=== PATIENT | female | born 1985 | race American Indian/Alaskan Native ===

== ENCOUNTER 2017-03-27 08:42 | Emergency (ER) | payer MEDICARE | END 2017-03-27 08:43 | disposition left against medical advice (07) | LOC: ED 08:42 | DX: L98.8 Other specified disorders of the skin and subcutaneous tissue (principal); Z53.21 Procedure and treatment not carried out due to patient leaving prior to being seen by health care provider ==

== ENCOUNTER 2017-03-27 08:43 | Inpatient (IN) | payer MEDICARE ==
[2017-03-27] MEDS ORDERED: NACL 0.9% 500 ML 500 ML IV ONE (09:19)
[2017-03-27 10:02] LABS: Hematocrit 28.2 % (30.3-42.9); Hemoglobin 9.1 gm/dl (10.1-14.3); Mean Corpuscular HGB Conc 32 % (30-34); Mean Corpuscular Hemoglobin 27 pg (28-32); Mean Corpuscular Volume 82 fl (79-97); Platelet Count 134 K/mm3 (140-440); Red Blood Count 3.44 M/mm3 (3.65-5.03); Red Cell Distribution Width 15.4 % (13.2-15.2)
[2017-03-27 10:05] LABS: White Blood Count 1.5 K/mm3 (4.5-11.0)
[2017-03-27 10:09] LABS: Alanine Aminotransferase 13 units/L (7-56); Albumin 3.5 g/dL (3.9-5); Albumin/Globulin Ratio 0.7 %; Alkaline Phosphatase 72 units/L (35-129); Anion Gap 18 mmol/L; BUN/Creatinine Ratio 30; Blood Urea Nitrogen 15 mg/dL (7-17); Calcium 8.3 mg/dL (8.4-10.2); Carbon Dioxide 23 mmol/L (22-30); Chloride 99.9 mmol/L (98-107); Glucose 112 mg/dL (65-100); Potassium 3.6 mmol/L (3.6-5.0); Sodium 137 mmol/L (137-145); Total Protein 8.2 g/dL (6.3-8.2)
[2017-03-27 10:10] LABS: INR 0.96 (0.87-1.13)
--- NOTE | 2017-03-27 10:14 | XRay Report ---
AP CHEST: HISTORY: Sepsis AP view of the chest demonstrates a normal mediastinal and cardiac contour with clear lungs and normal bony and soft tissue structures. IMPRESSION: Unremarkable AP chest.
[2017-03-27] MEDS ORDERED: MERREM 1,000 MG in NACL 0.9% 100 ML IV ONE (10:16)
[2017-03-27] MEDS ORDERED: NACL 0.9% 1000 ML IV ONE (10:19)
[2017-03-27] MEDS ORDERED: DILAUDID IV ONE (10:37)
[2017-03-27] MEDS ORDERED: ZOFRAN IV ONE (10:37)
[2017-03-27] MEDS ORDERED: XYLOCAINE 1% 20 mL INFILTRATI ONE (10:52)
[2017-03-27] MEDS ORDERED: VANCOMYCIN PHARMACY TO DOSE IV SCH (11:00)
[2017-03-27] MEDS ORDERED: MERREM 1,000 MG in NACL 0.9% 20 ML IV ONE (11:00)
[2017-03-27 11:06] LABS: Basophils % (Manual) 0 % (0.0-1.8); Blastocytes % (Manual) 0 %
[2017-03-27 11:07] LABS: Anisocytosis 1+; Diff Status Complete; Hypochromasia 1+; Platelet Estimate Consistent w Auto; Schistocytes Rare
[2017-03-27] MEDS: VANCOMYCIN/NS 1 GM/250 ML 1 GM/250 ML BAG IV SCH ×2 (11:13→22:52)
[2017-03-27 12:42] LABS: Bilirubin,Urine NEG (Negative); Blood,Urine MOD (Negative); Ketones,Urine NEG (Negative); Leukocyte Esterase,Urine NEG (Negative); Mucus,Urine FEW /HPF; Nitrite,Urine NEG (Negative); Protein,Urine <15 mg/dL mg/dL (Negative); Urobilinogen,Urine < 2.0 mg/dL (<2.0)
--- NOTE | 2017-03-27 12:46 | History and Physical Report ---
History of Present Illness Chief complaint: My butt hurts History of present illness: 31 YO Female with HIV presents to ED for evaluation. Pt states that she has experienced sores on her buttocks over the past week with worsening pain and foul smelling drainage over that past 3 days. Pt also acknowledges severe generalized weakness. Pain in buttocks is 8/10, constant, worse with movement or sitting. No reports of trauma, fever, chills, CP, Palpitations, NVD, syncope , recent in contacts, BRBPR. Pt seen and evaluated in ED and found to have evidence of sepsis. Pt blood pressure was 79/45. Pt initiated on Sepsis protocol , and treated with antibiotics, and IVF resuscitation therapy. Past History Past Medical History: HIV/AIDS Past Surgical History: No surgical history, Other (reviewed) Social history: single. denies: smoking, alcohol abuse Family history: hypertension Medications and Allergies Allergies Allergy/AdvReac Type Severity Reaction Status Date / Time amoxicillin Allergy Rash Verified 03/27/17 09:02 Active Meds: Active Medications Vancomycin HCl (Vancomycin/Ns 1 Gm/250 Ml) 1 gm in 250 mls @ 166.667 mls/hr IV Q8H [facility] Last Admin: 03/27/17 11:13 Dose: 166.667 mls/hr Vancomycin HCl (Vancomycin Pharmacy To Dose) 1 each IV PKCONSULT [facility] PRN Reason: Protocol Review of Systems Constitutional: no weight loss, no weight gain, no fever, no chills Ears, nose, mouth and throat: no ear pain, no ear discharge, no tinnitis, no decreased hearing, no nose pain Breasts: no change in shape, no swelling, no mass Cardiovascular: no chest pain, no orthopnea, no palpitations, no rapid/ irregular heart beat Respiratory: no cough, no cough with sputum, no excessive sputum, no hemoptysis Gastrointestinal: no nausea, no vomiting, no diarrhea, no constipation Genitourinary Female: no pelvic pain, no flank pain, no menorrhagia, no dysuria , no urinary frequency Rectal: no pain, no incontinence, no bleeding Musculoskeletal: no neck stiffness, no neck pain, no shooting arm pain, no arm numbness/tingling, no low back pain Integumentary: other (buttock ulcers bilaterally), no rash, no pruritis, no redness, no sores Neurological: no transient paralysis, no paralysis, no weakness, no parathesias , no numbness Psychiatric: no anxiety, no memory loss, no change in sleep habits, no sleep disturbances, no insomnia, no hypersomnia Endocrine: no cold intolerance, no heat intolerance, no polyphagia, no excessive thirst, no polydipsia, no polyuria Hematologic/Lymphatic: no easy bruising, no easy bleeding Allergic/Immunologic: no urticaria, no allergic rhinitis, no wheezing Exam - Constitutional Vitals: Temp Pulse Resp BP Pulse Ox 97.8 F 90 19 115/80 98 03/27/17 09:02 03/27/17 12:30 03/27/17 12:30 03/27/17 12:30 03/27/17 12:30 General appearance: Present: mild distress - EENT Eyes: Present: PERRL ENT: hearing intact, clear oral mucosa - Neck Neck: Present: supple, normal ROM - Respiratory Respiratory effort: normal Respiratory: bilateral: CTA - Cardiovascular Heart Sounds: Present: S1 & S2. Absent: rub, click - Extremities Extremities: pulses symmetrical, No edema Peripheral Pulses: within normal limits - Abdominal General gastrointestinal: Present: soft, non-tender, non-distended, normal bowel sounds Female genitourinary: Present: normal - Integumentary Integumentary: Present: clear, warm, dry - Musculoskeletal Musculoskeletal: gait normal, strength equal bilaterally - Psychiatric Psychiatric: appropriate mood/affect, intact judgment & insight - Neurologic Neurologic: CNII-XII intact, moves all extremities Results - Labs CBC & Chem 7: 03/27/17 09:32 03/27/17 09:32 Labs: Abnormal lab results 03/27/17 03/27/17 Range/Units 09:32 09:32 WBC 1.5 L* (4.5-11.0) K/mm3 RBC 3.44 L (3.65-5.03) M/mm3 Hgb 9.1 L (10.1-14.3) gm/dl Hct 28.2 L (30.3-42.9) % MCH 27 L (28-32) pg RDW 15.4 H (13.2-15.2) % Plt Count 134 L (140-440) K/mm3 Monocytes % (Manual) 8.0 H (0.0-7.3) % Seg Neutrophils # Man 0.8 L (1.8-7.7) K/mm3 Lymphocytes # (Manual) 0.4 L (1.2-5.4) K/mm3 Creatinine 0.5 L (0.7-1.2) mg/dL Glucose 112 H (65-100) mg/dL Calcium 8.3 L (8.4-10.2) mg/dL Albumin 3.5 L (3.9-5) g/dL Assessment and Plan - Patient Problems (1) Sepsis Current Visit: Yes Status: Acute Plan to address problem: IV abx, IVF resuscitation, serial lactic acid level, blood cultures, wound cultures, urinalysis, (2) Cellulitis of buttock Current Visit: Yes Status: Acute Plan to address problem: IV abx, wound care consulted, supportive care. (3) HIV (human immunodeficiency virus infection) Current Visit: Yes Status: Acute Plan to address problem: Outpatient ID F/u, continue current care. (4) DVT prophylaxis Current Visit: Yes Status: Acute
[2017-03-27] MEDS ORDERED: PROVENTIL IH PRN (12:47)
[2017-03-27] MEDS ORDERED: DULCOLAX PR PRN (12:47)
[2017-03-27] MEDS ORDERED: MILK OF MAGNESIA PO PRN (12:47)
[2017-03-27] MEDS ORDERED: TYLENOL PO PRN (12:47)
--- NOTE | 2017-03-27 13:33 | Emergency Department Report ---
ED General Adult HPI - General Chief complaint: Skin/Abscess/Foreign Body Stated complaint: SORES ON BOTTOM Time Seen by Provider: 03/27/17 10:20 Source: patient Mode of arrival: Ambulatory Limitations: No Limitations - History of Present Illness Initial comments: Patient presents to the emergency department with an apparent abundance of denial. She is hoping to get some medicine and go home and she tells me she complains of sores on her bottom which she states are due to her sitting too long. I am really certain that this patient is HIV positive although she will not admitted. She states that she was [place] with a [place]. She states that she was told to follow up with an infectious disease clinic after an HIV test. She states that the results of her HIV test was "not back yet". In any case the patient presented to the emergency department hypotensive with chronic gluteal sores. She is able to have a bowel movement. She is hardly permitting examination of her buttox. She would not permit a digital exam. He does admit to severe generalized weakness. She was found to have a blood pressure which drifted down to 70 on arrival. -: week(s) Location: buttocks Radiation: non-radiation Severity scale (0 -10): 3 Quality: aching Consistency: constant Improves with: none Worsens with: none Associated Symptoms: other Treatments Prior to Arrival: none - Related Data Allergies Allergy/AdvReac Type Severity Reaction Status Date / Time amoxicillin Allergy Rash Verified 03/27/17 09:02 ED Review of Systems ROS: Stated complaint: SORES ON BOTTOM Other details as noted in HPI ED Past Medical Hx - Past Medical History Previous Medical History?: No - Surgical History Past Surgical History?: No - Social History Smoking Status: Never Smoker Substance Use Type: Alcohol ED Physical Exam - General Limitations: No Limitations General appearance: alert, in no apparent distress - Head Head exam: Present: atraumatic, normocephalic - Eye Eye exam: Present: normal appearance. Absent: scleral icterus - ENT ENT exam: Present: mucous membranes moist - Neck Neck exam: Present: normal inspection. Absent: tenderness, meningismus - Respiratory Respiratory exam: Present: normal lung sounds bilaterally. Absent: respiratory distress - Cardiovascular Cardiovascular Exam: Present: regular rate, normal rhythm. Absent: systolic murmur, diastolic murmur, rubs, gallop - GI/Abdominal GI/Abdominal exam: Present: soft, normal bowel sounds. Absent: distended, tenderness, guarding, rebound - Rectal Rectal exam: Present: other (would not allow) - Extremities Exam Extremities exam: Present: normal inspection - Back Exam Back exam: Present: normal inspection - Neurological Exam Neurological exam: Present: CN II-XII intact. Absent: motor sensory deficit - Psychiatric Psychiatric exam: Present: agitated, anxious - Skin Skin exam: Present: warm, dry, other (patient has multiple 1-2 cm diameter punched-out full-thickness ulcers. There is some maceration. There is no herrera pus or erythema. There is no abscess formation noted. They are bilateral in the gluteal area). Absent: rash ED Course Vital Signs 03/27/17 03/27/17 03/27/17 09:02 09:28 09:30 Temperature 97.8 F Pulse Rate 94 H 88 Respiratory 18 14 Rate Blood Pressure 79/45 102/61 95/63 O2 Sat by Pulse 100 Oximetry 03/27/17 03/27/17 03/27/17 09:46 10:00 10:16 Temperature Pulse Rate 97 H 89 93 H Respiratory 14 20 18 Rate Blood Pressure 95/63 115/79 115/79 O2 Sat by Pulse 97 95 100 Oximetry 03/27/17 03/27/17 03/27/17 10:30 10:46 10:49 Temperature Pulse Rate 101 H 108 H Respiratory 15 11 L 18 Rate Blood Pressure 114/87 114/87 O2 Sat by Pulse 100 100 Oximetry 03/27/17 03/27/17 03/27/17 11:00 11:16 11:30 Temperature Pulse Rate 98 H 95 H 116 H Respiratory 15 18 19 Rate Blood Pressure 114/87 114/87 114/87 O2 Sat by Pulse 98 99 87 Oximetry 03/27/17 03/27/17 03/27/17 11:46 12:00 12:16 Temperature Pulse Rate 109 H 94 H 89 Respiratory 20 15 14 Rate Blood Pressure 129/84 129/84 135/94 O2 Sat by Pulse 97 99 97 Oximetry 03/27/17 12:30 Temperature Pulse Rate 90 Respiratory 19 Rate Blood Pressure 115/80 O2 Sat by Pulse 98 Oximetry - Reevaluation(s) Reevaluation #1: Patient was treated empirically for sepsis with meropenem and vancomycin. She was admitted by Dr. Quintin for further care and evaluation. 03/27/17 13:58 ED Medical Decision Making - Lab Data Result diagrams: 03/27/17 09:32 03/27/17 09:32 Laboratory Results - last 24 hr 03/27/17 03/27/17 03/27/17 09:32 09:32 09:32 WBC 1.5 L* RBC 3.44 L Hgb 9.1 L Hct 28.2 L MCV 82 MCH 27 L MCHC 32 RDW 15.4 H Plt Count 134 L Add Manual Diff Complete Total Counted 100 Seg Neuts % (Manual) 50.0 Band Neutrophils % 12.0 Lymphocytes % (Manual) 29.0 Reactive Lymphs % (Man) 0 Monocytes % (Manual) 8.0 H Eosinophils % (Manual) 1.0 Basophils % (Manual) 0 Metamyelocytes % 0 Myelocytes % 0 Promyelocytes % 0 Blast Cells % 0 Nucleated RBC % Not Reportable Seg Neutrophils # Man 0.8 L Band Neutrophils # 0.2 Lymphocytes # (Manual) 0.4 L Abs React Lymphs (Man) 0.0 Monocytes # (Manual) 0.1 Eosinophils # (Manual) 0.0 Basophils # (Manual) 0.0 Metamyelocytes # 0.0 Myelocytes # 0.0 Promyelocytes # 0.0 Blast Cells # 0.0 WBC Morphology Not Reportable Hypersegmented Neuts Not Reportable Hyposegmented Neuts Not Reportable Hypogranular Neuts Not Reportable Smudge Cells Not Reportable Toxic Granulation Not Reportable Toxic Vacuolation Not Reportable Dohle Bodies Not Reportable Pelger-Huet Anomaly Not Reportable La Rods Not Reportable Platelet Estimate Consistent w auto Clumped Platelets Not Reportable Plt Clumps, EDTA Not Reportable Large Platelets Not Reportable Giant Platelets Not Reportable Platelet Satelliting Not Reportable Plt Morphology Comment Not Reportable RBC Morphology Not Reportable Dimorphic RBCs Not Reportable Polychromasia Not Reportable Hypochromasia 1+ Poikilocytosis Not Reportable Anisocytosis 1+ Microcytosis Not Reportable Macrocytosis Not Reportable Spherocytes Not Reportable Pappenheimer Bodies Not Reportable Sickle Cells Not Reportable Target Cells Not Reportable Tear Drop Cells Not Reportable Ovalocytes Not Reportable Helmet Cells Not Reportable Rae-Oronoque Bodies Not Reportable [place] Rings Not Reportable [place] Cells Not Reportable Bite Cells Not Reportable Crenated Cell Not Reportable Elliptocytes Not Reportable Acanthocytes (Spur) Not Reportable Rouleaux Not Reportable Hemoglobin C Crystals Not Reportable Schistocytes Rare Malaria parasites Not Reportable Gaurav Bodies Not Reportable Hem Pathologist Commnt No PT 13.3 INR 0.96 VBG pH Sodium 137 Potassium 3.6 Chloride 99.9 Carbon Dioxide 23 Anion Gap 18 BUN 15 Creatinine 0.5 L Estimated GFR > 60 BUN/Creatinine Ratio 30 Glucose 112 H Lactic Acid Calcium 8.3 L Total Bilirubin 0.20 AST 27 ALT 13 Alkaline Phosphatase 72 Total Protein 8.2 Albumin 3.5 L Albumin/Globulin Ratio 0.7 Urine Color Urine Turbidity Urine pH Ur Specific [place] Urine Protein Urine Glucose (UA) Urine Ketones Urine Blood Urine Nitrite Urine Bilirubin Urine Urobilinogen Ur Leukocyte Esterase Urine WBC (Auto) Urine RBC (Auto) U Epithel Cells (Auto) Urine Mucus 03/27/17 03/27/17 03/27/17 09:32 09:32 12:30 WBC RBC Hgb Hct MCV MCH MCHC RDW Plt Count Add Manual Diff Total Counted Seg Neuts % (Manual) Band Neutrophils % Lymphocytes % (Manual) Reactive Lymphs % (Man) Monocytes % (Manual) Eosinophils % (Manual) Basophils % (Manual) Metamyelocytes % Myelocytes % Promyelocytes % Blast Cells % Nucleated RBC % Seg Neutrophils # Man Band Neutrophils # Lymphocytes # (Manual) Abs React Lymphs (Man) Monocytes # (Manual) Eosinophils # (Manual) Basophils # (Manual) Metamyelocytes # Myelocytes # Promyelocytes # Blast Cells # WBC Morphology Hypersegmented Neuts Hyposegmented Neuts Hypogranular Neuts Smudge Cells Toxic Granulation Toxic Vacuolation Dohle Bodies Pelger-Huet Anomaly [place] Rod[place] Platelet Estimate Clumped Platelets Plt Clumps, EDTA Large Platelets Giant Platelets Platelet Satelliting Plt Morphology Comment RBC Morphology Dimorphic RBCs Polychromasia Hypochromasia Poikilocytosis Anisocytosis Microcytosis Macrocytosis Spherocytes Pappenheimer Bodies Sickle Cells Target Cells Tear Drop Cells Ovalocytes Helmet Cells Rae-Oronoque Bodies [place] Rings Vannessa Cells Bite Cells Crenated Cell Elliptocytes Acanthocytes (Spur) Rouleaux Hemoglobin C Crystals Schistocytes Malaria parasites Gaurav Bodies Hem Pathologist Commnt PT INR VBG pH 7.338 Sodium Potassium Chloride Carbon Dioxide Anion Gap BUN Creatinine Estimated GFR BUN/Creatinine Ratio Glucose Lactic Acid 1.20 Calcium Total Bilirubin AST ALT Alkaline Phosphatase Total Protein Albumin Albumin/Globulin Ratio Urine Color Yellow Urine Turbidity Clear Urine pH 6.0 Ur Specific [place] 1.013 Urine Protein <15 mg/dl Urine Glucose (UA) Neg Urine Ketones Neg Urine Blood Mod Urine Nitrite Neg Urine Bilirubin Neg Urine Urobilinogen < 2.0 Ur Leukocyte Esterase Neg Urine WBC (Auto) 1.0 Urine RBC (Auto) 2.0 U Epithel Cells (Auto) 1.0 Urine Mucus Few - EKG Data -: EKG Interpreted by Me EKG shows normal: sinus rhythm, axis, intervals, QRS complexes, ST-T waves - EKG Data Interpretation: no acute changes - Radiology Data interpreted by me: Chest x-ray no acute process Critical care attestation.: If time is entered above; I have spent that time in minutes in the direct care of this critically ill patient, excluding procedure time. ED Disposition Clinical Impression: Gluteal pain, Pancytopenia Neutropenia Qualifiers: Neutropenia type: unspecified Qualified Code(s): D70.9 - Neutropenia, unspecified Skin ulcer Qualifiers: Non-pressure ulcer stage: unspecified non-pressure ulcer stage Qualified Code(s ): L98.499 - Non-pressure chronic ulcer of skin of other sites with unspecified severity Sepsis Qualifiers: Sepsis type: sepsis due to unspecified organism Qualified Code(s): A41.9 - Sepsis, unspecified organism Hypotension Qualifiers: Hypotension type: unspecified hypotension type Qualified Code(s): I95.9 - Hypotension, unspecified Disposition: DC-09 OP ADMIT IP TO THIS HOSP Is pt being admited?: Yes Does the pt Need Aspirin: No (held platelets slightly low no indication obvious) Condition: Stable Referrals: PRIMARY CARE, [Primary Care Provider] - 3-5 Days Time of Disposition: 14:01
[2017-03-27] MEDS ORDERED: VANCOMYCIN VIAL IV ONE (14:55)
[2017-03-27] MEDS ORDERED: VANCOMYCIN 1,250 MG in NACL 0.9% 250ML 250 ML IV ONE (16:00)
[2017-03-27] MEDS: FLAGYL 500 MG/100 ML 500 MG/100 ML BAG IV SCH (17:32)
[2017-03-27] MEDS: PERCOCET 5/325 PO PRN (19:53)
[2017-03-28] MEDS: FLAGYL 500 MG/100 ML 500 MG/100 ML BAG IV SCH ×2 (01:30→10:00)
[2017-03-28] MEDS: VANCOMYCIN/NS 1 GM/250 ML 1 GM/250 ML BAG IV SCH ×3 (06:37→21:25)
[2017-03-28] MEDS: PERCOCET 5/325 PO PRN ×3 (06:41→21:27)
[2017-03-28] MEDS ORDERED: MORPHINE IV ONE (12:00)
--- NOTE | 2017-03-28 12:29 | Consultation ---
History of Present Illness - Reason for Consult Consult date: 03/28/17 buttocks rash Requesting physician: SHANTELL PARKER - History of Present Illness 31 years old female with history of HIV infection diagnosed in 2012, recently moved from [place], [place] to [place]. Patient has no established a new HIV office. Patient used to be on tivicay, viread and ? . Last time she took her ART was 2 months ago. She lost her medical insurance. She was admitted on Patient reports a painful rash on her buttocks area bilaterally in the last 7 days. She recently had her period and she received the pat irritated her. She denies any recent fever, chills, trauma, nausea, vomiting. In the emergency room, initial temperature was 97.8, heart rate 94, respirations 18, blood pressure 74/45. Initial white count 1.5, hemoglobin 9.1 , platelets 134. Creatinine 0.5. Urinalysis is negative. Microbiology: Blood cultures: 03/27 ngtd Urine cultures: 03/27 <10K Current Antimicrobials: Metronidazole 03/27 Vancomycin 03/27 Previous Antimicrobials: Past History Past Medical History: HIV/AIDS Past Surgical History: No surgical history, Other (reviewed) Social history: single. denies: smoking, alcohol abuse Family history: hypertension Medications and Allergies Allergies Allergy/AdvReac Type Severity Reaction Status Date / Time amoxicillin Allergy Rash Verified 03/27/17 09:02 Active Meds: Active Medications Acetaminophen (Tylenol) 650 mg PO Q4H PRN PRN Reason: Pain MILD(1-3)/Fever >100.5/SNYDER Albuterol (Proventil) 2.5 mg IH Q4HRT PRN PRN Reason: Shortness Of Breath Bisacodyl (Dulcolax) 10 mg UT QDAY PRN PRN Reason: Constipation unrelieved by MOM Vancomycin HCl (Vancomycin/Ns 1 Gm/250 Ml) 1 gm in 250 mls @ 166.667 mls/hr IV Q8H [facility] Last Admin: 03/28/17 06:37 Dose: 166.667 mls/hr Metronidazole (Flagyl 500 Mg/100 Ml) 500 mg in 100 mls @ 100 mls/hr IV Q8H [facility] PRN Reason: Protocol Last Admin: 03/28/17 10:00 Dose: 100 mls/hr Magnesium Hydroxide (Milk Of Magnesia) 30 ml PO Q4H PRN PRN Reason: Constipation Ondansetron HCl (Zofran) 4 mg IV Q8H PRN PRN Reason: N/V unrelieved by Reglan Oxycodone/Acetaminophen (Percocet 5/325) 1 tab PO Q6H PRN PRN Reason: Pain, Moderate (4-6) Last Admin: 03/28/17 06:41 Dose: 1 tab Vancomycin HCl (Vancomycin Pharmacy To Dose) 1 each IV PKCONSULT [facility] PRN Reason: Protocol Review of Systems All systems: negative (as per HPI rest neg) Physical Examination - Physical Exam Narrative exam: General appearance: Alert in NAD, conversant Eyes: anicteric sclerae, moist conjunctivae; no lid-lag; PERRLA HENT: Atraumatic; oropharynx clear Neck: Trachea midline; supple, no thyromegaly or lymphadenopathy Lungs: CTA, with normal respiratory effort and no intercostal retractions CV: RRR, no murmurs Abdomen: Soft, non-tender; no masses or hepatosplenomegaly Extremities: No peripheral edema or extremity lymphadenopathy Skin: multiple round superficial ulcers in sacrum, nelson buttocks with periwound erythema no purulence Psych: Appropriate affect, alert and oriented to person, place and time. Neuro: alert and oriented x 3. Moving all extermities Lines: No CVL / PICC - Constitutional Vitals: Vital Signs Temp Pulse Resp BP Pulse Ox 98.5 F 98 H 20 130/78 99 03/28/17 09:10 03/28/17 09:10 03/28/17 09:10 03/28/17 09:10 03/28/17 09:16 Temperature -Last 24 Hours Temperature 98.5 F Temperature 98.4 F Temperature 98.6 F Temperature 97.9 F Results - Labs CBC & Chem 7: 03/27/17 09:32 03/27/17 09:32 Assessment and Plan Assessment: 1) HIV infection diagnosed in 2012. Last time she took her ART was 2 months ago. She lost her medical insurance. 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 Natalia Juarez MD Infectious Diseases Specialist [facility] ([facility] M [phone] O [phone]
--- NOTE | 2017-03-28 15:53 | Progress Note ---
<CASSIE GALAN - Last Filed: 03/28/17 15:48> Assessment and Plan Assessment and plan: 31 YO Female with HIV presents to ED for evaluation. Pt states that she has experienced sores on her buttocks over the past week with worsening pain and foul smelling drainage over that past 3 days. Pt also acknowledges severe generalized weakness. Pain in buttocks is 8/10, constant, worse with movement or sitting. No reports of trauma, fever, chills, CP, Palpitations, NVD, syncope , recent in contacts, BRBPR. Pt seen and evaluated in ED and found to have evidence of sepsis. Pt blood pressure was 79/45. Pt initiated on Sepsis protocol , and treated with antibiotics, and IVF resuscitation therapy Sepsis Likely from buttocks rash culture shows few polymorphonuclear cells , rare gram negative rods Continue vancomycin HIV/AIDS ID following -check CD4/VL/genotype Buttock rash ID following -start acyclovir IV. Hypotension Resolved, continue IVF WIll continue to monitor Pancytopenia from AIDS History Interval history: Patient is awake and alert. Denies CP, SOB, N/V. Only complains of buttock pain Hospitalist Physical - Constitutional Vitals: Temp Pulse Resp BP Pulse Ox 98.5 F 98 H 20 130/78 99 03/28/17 09:10 03/28/17 09:10 03/28/17 09:10 03/28/17 09:10 03/28/17 09:16 General appearance: Present: mild distress - EENT Eyes: Present: PERRL, EOM intact ENT: hearing intact, clear oral mucosa - Neck Neck: Present: supple, normal ROM - Respiratory Respiratory effort: normal Respiratory: bilateral: CTA - Cardiovascular Rhythm: regular Heart Sounds: Present: S1 & S2 - Extremities Extremities: no ischemia, No edema Peripheral Pulses: within normal limits - Abdominal General gastrointestinal: soft, non-tender - Integumentary Integumentary: Present: clear (denies exam of buttocks), warm, dry - Psychiatric Psychiatric: appropriate mood/affect, cooperative - Neurologic Neurologic: CNII-XII intact, moves all extremities - Allied Health Allied health notes reviewed: nursing Results - Labs CBC & Chem 7: 03/27/17 09:32 03/27/17 09:32 Labs: Laboratory Last Values WBC 1.5 K/mm3 (4.5-11.0) L* 03/27/17 09:32 RBC 3.44 M/mm3 (3.65-5.03) L 03/27/17 09:32 Hgb 9.1 gm/dl (10.1-14.3) L 03/27/17 09:32 Hct 28.2 % (30.3-42.9) L 03/27/17 09:32 MCV 82 fl (79-97) 03/27/17 09:32 MCH 27 pg (28-32) L 03/27/17 09:32 MCHC 32 % (30-34) 03/27/17 09:32 RDW 15.4 % (13.2-15.2) H 03/27/17 09:32 Plt Count 134 K/mm3 (140-440) L 03/27/17 09:32 Add Manual Diff Complete 03/27/17 09:32 Total Counted 100 03/27/17 09:32 Seg Neuts % (Manual) 50.0 % (40.0-70.0) 03/27/17 09:32 Band Neutrophils % 12.0 % 03/27/17 09:32 Lymphocytes % (Manual) 29.0 % (13.4-35.0) 03/27/17 09:32 Reactive Lymphs % (Man) 0 % 03/27/17 09:32 Monocytes % (Manual) 8.0 % (0.0-7.3) H 03/27/17 09:32 Eosinophils % (Manual) 1.0 % (0.0-4.3) 03/27/17 09:32 Basophils % (Manual) 0 % (0.0-1.8) 03/27/17 09:32 Metamyelocytes % 0 % 03/27/17 09:32 Myelocytes % 0 % 03/27/17 09:32 Promyelocytes % 0 % 03/27/17 09:32 Blast Cells % 0 % 03/27/17 09:32 Nucleated RBC % Not Reportable 03/27/17 09:32 Seg Neutrophils # Man 0.8 K/mm3 (1.8-7.7) L 03/27/17 09:32 Band Neutrophils # 0.2 K/mm3 03/27/17 09:32 Lymphocytes # (Manual) 0.4 K/mm3 (1.2-5.4) L 03/27/17 09:32 Abs React Lymphs (Man) 0.0 K/mm3 03/27/17 09:32 Monocytes # (Manual) 0.1 K/mm3 (0.0-0.8) 03/27/17 09:32 Eosinophils # (Manual) 0.0 K/mm3 (0.0-0.4) 03/27/17 09:32 Basophils # (Manual) 0.0 K/mm3 (0.0-0.1) 03/27/17 09:32 Metamyelocytes # 0.0 K/mm3 03/27/17 09:32 Myelocytes # 0.0 K/mm3 03/27/17 09:32 Promyelocytes # 0.0 K/mm3 03/27/17 09:32 Blast Cells # 0.0 K/mm3 03/27/17 09:32 WBC Morphology Not Reportable 03/27/17 09:32 Hypersegmented Neuts Not Reportable 03/27/17 09:32 Hyposegmented Neuts Not Reportable 03/27/17 09:32 Hypogranular Neuts Not Reportable 03/27/17 09:32 Smudge Cells Not Reportable 03/27/17 09:32 Toxic Granulation Not Reportable 03/27/17 09:32 Toxic Vacuolation Not Reportable 03/27/17 09:32 Dohle Bodies Not Reportable 03/27/17 09:32 Pelger-Huet Anomaly Not Reportable 03/27/17 09:32 La Rods Not Reportable 03/27/17 09:32 Platelet Estimate Consistent w auto 03/27/17 09:32 Clumped Platelets Not Reportable 03/27/17 09:32 Plt Clumps, EDTA Not Reportable 03/27/17 09:32 Large Platelets Not Reportable 03/27/17 09:32 Giant Platelets Not Reportable 03/27/17 09:32 Platelet Satelliting Not Reportable 03/27/17 09:32 Plt Morphology Comment Not Reportable 03/27/17 09:32 RBC Morphology Not Reportable 03/27/17 09:32 Dimorphic RBCs Not Reportable 03/27/17 09:32 Polychromasia Not Reportable 03/27/17 09:32 Hypochromasia 1+ 03/27/17 09:32 Poikilocytosis Not Reportable 03/27/17 09:32 Anisocytosis 1+ 03/27/17 09:32 Microcytosis Not Reportable 03/27/17 09:32 Macrocytosis Not Reportable 03/27/17 09:32 Spherocytes Not Reportable 03/27/17 09:32 Pappenheimer Bodies Not Reportable 03/27/17 09:32 Sickle Cells Not Reportable 03/27/17 09:32 Target Cells Not Reportable 03/27/17 09:32 Tear Drop Cells Not Reportable 03/27/17 09:32 Ovalocytes Not Reportable 03/27/17 09:32 Helmet Cells Not Reportable 03/27/17 09:32 Rae-Goss Bodies Not Reportable 03/27/17 09:32 [place] Rings Not Reportable 03/27/17 09:32 Vannessa Cells Not Reportable 03/27/17 09:32 Bite Cells Not Reportable 03/27/17 09:32 Crenated Cell Not Reportable 03/27/17 09:32 Elliptocytes Not Reportable 03/27/17 09:32 Acanthocytes (Spur) Not Reportable 03/27/17 09:32 Rouleaux Not Reportable 03/27/17 09:32 Hemoglobin C Crystals Not Reportable 03/27/17 09:32 Schistocytes Rare 03/27/17 09:32 Malaria parasites Not Reportable 03/27/17 09:32 Gaurav Bodies Not Reportable 03/27/17 09:32 Hem Pathologist Commnt No 03/27/17 09:32 PT 13.3 Sec. (12.2-14.9) 03/27/17 09:32 INR 0.96 (0.87-1.13) 03/27/17 09:32 VBG pH 7.338 (7.320-7.420) 03/27/17 09:32 Sodium 137 mmol/L (137-145) 03/27/17 09:32 Potassium 3.6 mmol/L (3.6-5.0) 03/27/17 09:32 Chloride 99.9 mmol/L (98-107) 03/27/17 09:32 Carbon Dioxide 23 mmol/L (22-30) 03/27/17 09:32 Anion Gap 18 mmol/L 03/27/17 09:32 BUN 15 mg/dL (7-17) 03/27/17 09:32 Creatinine 0.5 mg/dL (0.7-1.2) L 03/27/17 09:32 Estimated GFR > 60 ml/min 03/27/17 09:32 BUN/Creatinine Ratio 30 % 03/27/17 09:32 Glucose 112 mg/dL (65-100) H 03/27/17 09:32 Lactic Acid 1.50 mmol/L (0.7-2.0) 03/27/17 20:49 Calcium 8.3 mg/dL (8.4-10.2) L 03/27/17 09:32 Total Bilirubin 0.20 mg/dL (0.1-1.2) 03/27/17 09:32 AST 27 units/L (5-40) 03/27/17 09:32 ALT 13 units/L (7-56) 03/27/17 09:32 Alkaline Phosphatase 72 units/L (35-129) 03/27/17 09:32 Total Protein 8.2 g/dL (6.3-8.2) 03/27/17 09:32 Albumin 3.5 g/dL (3.9-5) L 03/27/17 09:32 Albumin/Globulin Ratio 0.7 % 03/27/17 09:32 Urine Color Yellow (Yellow) 03/27/17 12:30 Urine Turbidity Clear (Clear) 03/27/17 12:30 Urine pH 6.0 (5.0-7.0) 03/27/17 12:30 Ur Specific [place] 1.013 (1.003-1.030) 03/27/17 12:30 Urine Protein <15 mg/dl mg/dL (Negative) 03/27/17 12:30 Urine Glucose (UA) Neg mg/dL (Negative) 03/27/17 12:30 Urine Ketones Neg mg/dL (Negative) 03/27/17 12:30 Urine Blood Mod (Negative) 03/27/17 12:30 Urine Nitrite Neg (Negative) 03/27/17 12:30 Urine Bilirubin Neg (Negative) 03/27/17 12:30 Urine Urobilinogen < 2.0 mg/dL (<2.0) 03/27/17 12:30 Ur Leukocyte Esterase Neg (Negative) 03/27/17 12:30 Urine WBC (Auto) 1.0 /HPF (0.0-6.0) 03/27/17 12:30 Urine RBC (Auto) 2.0 /HPF (0.0-6.0) 03/27/17 12:30 U Epithel Cells (Auto) 1.0 /HPF (0-13.0) 03/27/17 12:30 Urine Mucus Few /HPF 03/27/17 12:30 Blood Type B POSITIVE 03/27/17 17:05 Antibody Screen Negative 03/27/17 17:05 <VENANCIOSHANTELL Tom - Last Filed: 03/28/17 16:15> Assessment and Plan Assessment and plan: I saw and evaluated the patient. I agree with the findings and the plan of care as documented in the PA's~note, with the following corrections and additions. d/w ID, we thinks this is herpetic lesions Hospitalist Physical - Constitutional Vitals: Temp Pulse Resp BP Pulse Ox 98.5 F 98 H 20 130/78 99 03/28/17 09:10 03/28/17 09:10 03/28/17 09:10 03/28/17 09:10 03/28/17 09:16 Results - Labs CBC & Chem 7: 03/27/17 09:32 03/27/17 09:32 Labs: Laboratory Last Values WBC 1.5 K/mm3 (4.5-11.0) L* 03/27/17 09:32 RBC 3.44 M/mm3 (3.65-5.03) L 03/27/17 09:32 Hgb 9.1 gm/dl (10.1-14.3) L 03/27/17 09:32 Hct 28.2 % (30.3-42.9) L 03/27/17 09:32 MCV 82 fl (79-97) 03/27/17 09:32 MCH 27 pg (28-32) L 03/27/17 09:32 MCHC 32 % (30-34) 03/27/17 09:32 RDW 15.4 % (13.2-15.2) H 03/27/17 09:32 Plt Count 134 K/mm3 (140-440) L 03/27/17 09:32 Add Manual Diff Complete 03/27/17 09:32 Total Counted 100 03/27/17 09:32 Seg Neuts % (Manual) 50.0 % (40.0-70.0) 03/27/17 09:32 Band Neutrophils % 12.0 % 03/27/17 09:32 Lymphocytes % (Manual) 29.0 % (13.4-35.0) 03/27/17 09:32 Reactive Lymphs % (Man) 0 % 03/27/17 09:32 Monocytes % (Manual) 8.0 % (0.0-7.3) H 03/27/17 09:32 Eosinophils % (Manual) 1.0 % (0.0-4.3) 03/27/17 09:32 Basophils % (Manual) 0 % (0.0-1.8) 03/27/17 09:32 Metamyelocytes % 0 % 03/27/17 09:32 Myelocytes % 0 % 03/27/17 09:32 Promyelocytes % 0 % 03/27/17 09:32 Blast Cells % 0 % 03/27/17 09:32 Nucleated RBC % Not Reportable 03/27/17 09:32 Seg Neutrophils # Man 0.8 K/mm3 (1.8-7.7) L 03/27/17 09:32 Band Neutrophils # 0.2 K/mm3 03/27/17 09:32 Lymphocytes # (Manual) 0.4 K/mm3 (1.2-5.4) L 03/27/17 09:32 Abs React Lymphs (Man) 0.0 K/mm3 03/27/17 09:32 Monocytes # (Manual) 0.1 K/mm3 (0.0-0.8) 03/27/17 09:32 Eosinophils # (Manual) 0.0 K/mm3 (0.0-0.4) 03/27/17 09:32 Basophils # (Manual) 0.0 K/mm3 (0.0-0.1) 03/27/17 09:32 Metamyelocytes # 0.0 K/mm3 03/27/17 09:32 Myelocytes # 0.0 K/mm3 03/27/17 09:32 Promyelocytes # 0.0 K/mm3 03/27/17 09:32 Blast Cells # 0.0 K/mm3 03/27/17 09:32 WBC Morphology Not Reportable 03/27/17 09:32 Hypersegmented Neuts Not Reportable 03/27/17 09:32 Hyposegmented Neuts Not Reportable 03/27/17 09:32 Hypogranular Neuts Not Reportable 03/27/17 09:32 Smudge Cells Not Reportable 03/27/17 09:32 Toxic Granulation Not Reportable 03/27/17 09:32 Toxic Vacuolation Not Reportable 03/27/17 09:32 Dohle Bodies Not Reportable 03/27/17 09:32 Pelger-Huet Anomaly Not Reportable 03/27/17 09:32 La Rods Not Reportable 03/27/17 09:32 Platelet Estimate Consistent w auto 03/27/17 09:32 Clumped Platelets Not Reportable 03/27/17 09:32 Plt Clumps, EDTA Not Reportable 03/27/17 09:32 Large Platelets Not Reportable 03/27/17 09:32 Giant Platelets Not Reportable 03/27/17 09:32 Platelet Satelliting Not Reportable 03/27/17 09:32 Plt Morphology Comment Not Reportable 03/27/17 09:32 RBC Morphology Not Reportable 03/27/17 09:32 Dimorphic RBCs Not Reportable 03/27/17 09:32 Polychromasia Not Reportable 03/27/17 09:32 Hypochromasia 1+ 03/27/17 09:32 Poikilocytosis Not Reportable 03/27/17 09:32 Anisocytosis 1+ 03/27/17 09:32 Microcytosis Not Reportable 03/27/17 09:32 Macrocytosis Not Reportable 03/27/17 09:32 Spherocytes Not Reportable 03/27/17 09:32 Pappenheimer Bodies Not Reportable 03/27/17 09:32 Sickle Cells Not Reportable 03/27/17 09:32 Target Cells Not Reportable 03/27/17 09:32 Tear Drop Cells Not Reportable 03/27/17 09:32 Ovalocytes Not Reportable 03/27/17 09:32 Helmet Cells Not Reportable 03/27/17 09:32 Rae-Goss Bodies Not Reportable 03/27/17 09:32 [place] Rings Not Reportable 03/27/17 09:32 Vannessa Cells Not Reportable 03/27/17 09:32 Bite Cells Not Reportable 03/27/17 09:32 Crenated Cell Not Reportable 03/27/17 09:32 Elliptocytes Not Reportable 03/27/17 09:32 Acanthocytes (Spur) Not Reportable 03/27/17 09:32 Rouleaux Not Reportable 03/27/17 09:32 Hemoglobin C Crystals Not Reportable 03/27/17 09:32 Schistocytes Rare 03/27/17 09:32 Malaria parasites Not Reportable 03/27/17 09:32 Gaurav Bodies Not Reportable 03/27/17 09:32 Hem Pathologist Commnt No 03/27/17 09:32 PT 13.3 Sec. (12.2-14.9) 03/27/17 09:32 INR 0.96 (0.87-1.13) 03/27/17 09:32 VBG pH 7.338 (7.320-7.420) 03/27/17 09:32 Sodium 137 mmol/L (137-145) 03/27/17 09:32 Potassium 3.6 mmol/L (3.6-5.0) 03/27/17 09:32 Chloride 99.9 mmol/L (98-107) 03/27/17 09:32 Carbon Dioxide 23 mmol/L (22-30) 03/27/17 09:32 Anion Gap 18 mmol/L 03/27/17 09:32 BUN 15 mg/dL (7-17) 03/27/17 09:32 Creatinine 0.5 mg/dL (0.7-1.2) L 03/27/17 09:32 Estimated GFR > 60 ml/min 03/27/17 09:32 BUN/Creatinine Ratio 30 % 03/27/17 09:32 Glucose 112 mg/dL (65-100) H 03/27/17 09:32 Lactic Acid 1.50 mmol/L (0.7-2.0) 03/27/17 20:49 Calcium 8.3 mg/dL (8.4-10.2) L 03/27/17 09:32 Total Bilirubin 0.20 mg/dL (0.1-1.2) 03/27/17 09:32 AST 27 units/L (5-40) 03/27/17 09:32 ALT 13 units/L (7-56) 03/27/17 09:32 Alkaline Phosphatase 72 units/L (35-129) 03/27/17 09:32 Total Protein 8.2 g/dL (6.3-8.2) 03/27/17 09:32 Albumin 3.5 g/dL (3.9-5) L 03/27/17 09:32 Albumin/Globulin Ratio 0.7 % 03/27/17 09:32 Urine Color Yellow (Yellow) 03/27/17 12:30 Urine Turbidity Clear (Clear) 03/27/17 12:30 Urine pH 6.0 (5.0-7.0) 03/27/17 12:30 Ur Specific [place] 1.013 (1.003-1.030) 03/27/17 12:30 Urine Protein <15 mg/dl mg/dL (Negative) 03/27/17 12:30 Urine Glucose (UA) Neg mg/dL (Negative) 03/27/17 12:30 Urine Ketones Neg mg/dL (Negative) 03/27/17 12:30 Urine Blood Mod (Negative) 03/27/17 12:30 Urine Nitrite Neg (Negative) 03/27/17 12:30 Urine Bilirubin Neg (Negative) 03/27/17 12:30 Urine Urobilinogen < 2.0 mg/dL (<2.0) 03/27/17 12:30 Ur Leukocyte Esterase Neg (Negative) 03/27/17 12:30 Urine WBC (Auto) 1.0 /HPF (0.0-6.0) 03/27/17 12:30 Urine RBC (Auto) 2.0 /HPF (0.0-6.0) 03/27/17 12:30 U Epithel Cells (Auto) 1.0 /HPF (0-13.0) 03/27/17 12:30 Urine Mucus Few /HPF 03/27/17 12:30 Blood Type B POSITIVE 03/27/17 17:05 Antibody Screen Negative 03/27/17 17:05
[2017-03-28] MEDS: NACL 0.9% IV SCH ×2 (16:20→21:26)
[2017-03-28] MEDS: ZOVIRAX IV SCH ×2 (16:20→21:26)
[2017-03-28] MEDS: BUTT PASTE/LIDOCAINE TP SCH (21:26)
[2017-03-28] MEDS: ZOFRAN IV PRN (21:28)
[2017-03-29] MEDS: VANCOMYCIN/NS 1 GM/250 ML 1 GM/250 ML BAG IV SCH ×2 (04:46→12:00)
[2017-03-29] MEDS: NACL 0.9% IV SCH ×3 (06:20→22:02)
[2017-03-29] MEDS: ZOVIRAX IV SCH ×3 (06:20→22:02)
[2017-03-29] MEDS: BUTT PASTE/LIDOCAINE TP SCH ×4 (08:48→23:24)
[2017-03-29] MEDS: PERCOCET 5/325 PO PRN ×3 (09:49→22:02)
--- NOTE | 2017-03-29 11:40 | Progress Note ---
<CASSIE GALAN - Last Filed: 03/29/17 11:36> Assessment and Plan Assessment and plan: 31 YO Female with HIV presents to ED for evaluation. Pt states that she has experienced sores on her buttocks over the past week with worsening pain and foul smelling drainage over that past 3 days. Pt also acknowledges severe generalized weakness. Pain in buttocks is 8/10, constant, worse with movement or sitting. No reports of trauma, fever, chills, CP, Palpitations, NVD, syncope , recent in contacts, BRBPR. Pt seen and evaluated in ED and found to have evidence of sepsis. Pt blood pressure was 79/45. Pt initiated on Sepsis protocol , and treated with antibiotics, and IVF resuscitation therapy Sepsis Likely from buttocks rash culture shows few polymorphonuclear cells , rare gram negative rods, Staph Aureus Continue vancomycin HIV/AIDS ID following -check CD4/VL/genotype Buttock rash ID following -continue acyclovir IV. Hypotension Resolved, continue IVF Will continue to monitor Pancytopenia from AIDS History Interval history: Patient is awake and alert. Denies CP, SOB, N/V. Only complains of buttock pain Hospitalist Physical - Constitutional Vitals: Temp Pulse Resp BP Pulse Ox 99.6 F 100 H 20 112/59 100 03/29/17 08:48 03/29/17 08:48 03/29/17 08:48 03/29/17 08:48 03/29/17 08:48 General appearance: Present: mild distress - EENT Eyes: Present: PERRL, EOM intact ENT: hearing intact, clear oral mucosa, dentition normal - Neck Neck: Present: supple, normal ROM - Respiratory Respiratory effort: normal Respiratory: bilateral: CTA - Cardiovascular Rhythm: regular Heart Sounds: Present: S1 & S2 - Extremities Extremities: no ischemia, pulses intact, No edema Peripheral Pulses: within normal limits - Abdominal General gastrointestinal: deferred - Integumentary Integumentary: Present: clear, warm, dry - Psychiatric Psychiatric: appropriate mood/affect, cooperative - Neurologic Neurologic: CNII-XII intact, moves all extremities - Allied Health Allied health notes reviewed: nursing Results - Labs CBC & Chem 7: 03/27/17 09:32 03/27/17 09:32 Labs: Laboratory Last Values WBC 1.5 K/mm3 (4.5-11.0) L* 03/27/17 09:32 RBC 3.44 M/mm3 (3.65-5.03) L 03/27/17 09:32 Hgb 9.1 gm/dl (10.1-14.3) L 03/27/17 09:32 Hct 28.2 % (30.3-42.9) L 03/27/17 09:32 MCV 82 fl (79-97) 03/27/17 09:32 MCH 27 pg (28-32) L 03/27/17 09:32 MCHC 32 % (30-34) 03/27/17 09:32 RDW 15.4 % (13.2-15.2) H 03/27/17 09:32 Plt Count 134 K/mm3 (140-440) L 03/27/17 09:32 Add Manual Diff Complete 03/27/17 09:32 Total Counted 100 03/27/17 09:32 Seg Neuts % (Manual) 50.0 % (40.0-70.0) 03/27/17 09:32 Band Neutrophils % 12.0 % 03/27/17 09:32 Lymphocytes % (Manual) 29.0 % (13.4-35.0) 03/27/17 09:32 Reactive Lymphs % (Man) 0 % 03/27/17 09:32 Monocytes % (Manual) 8.0 % (0.0-7.3) H 03/27/17 09:32 Eosinophils % (Manual) 1.0 % (0.0-4.3) 03/27/17 09:32 Basophils % (Manual) 0 % (0.0-1.8) 03/27/17 09:32 Metamyelocytes % 0 % 03/27/17 09:32 Myelocytes % 0 % 03/27/17 09:32 Promyelocytes % 0 % 03/27/17 09:32 Blast Cells % 0 % 03/27/17 09:32 Nucleated RBC % Not Reportable 03/27/17 09:32 Seg Neutrophils # Man 0.8 K/mm3 (1.8-7.7) L 03/27/17 09:32 Band Neutrophils # 0.2 K/mm3 03/27/17 09:32 Lymphocytes # (Manual) 0.4 K/mm3 (1.2-5.4) L 03/27/17 09:32 Abs React Lymphs (Man) 0.0 K/mm3 03/27/17 09:32 Monocytes # (Manual) 0.1 K/mm3 (0.0-0.8) 03/27/17 09:32 Eosinophils # (Manual) 0.0 K/mm3 (0.0-0.4) 03/27/17 09:32 Basophils # (Manual) 0.0 K/mm3 (0.0-0.1) 03/27/17 09:32 Metamyelocytes # 0.0 K/mm3 03/27/17 09:32 Myelocytes # 0.0 K/mm3 03/27/17 09:32 Promyelocytes # 0.0 K/mm3 03/27/17 09:32 Blast Cells # 0.0 K/mm3 03/27/17 09:32 WBC Morphology Not Reportable 03/27/17 09:32 Hypersegmented Neuts Not Reportable 03/27/17 09:32 Hyposegmented Neuts Not Reportable 03/27/17 09:32 Hypogranular Neuts Not Reportable 03/27/17 09:32 Smudge Cells Not Reportable 03/27/17 09:32 Toxic Granulation Not Reportable 03/27/17 09:32 Toxic Vacuolation Not Reportable 03/27/17 09:32 Dohle Bodies Not Reportable 03/27/17 09:32 Pelger-Huet Anomaly Not Reportable 03/27/17 09:32 La Rods Not Reportable 03/27/17 09:32 Platelet Estimate Consistent w auto 03/27/17 09:32 Clumped Platelets Not Reportable 03/27/17 09:32 Plt Clumps, EDTA Not Reportable 03/27/17 09:32 Large Platelets Not Reportable 03/27/17 09:32 Giant Platelets Not Reportable 03/27/17 09:32 Platelet Satelliting Not Reportable 03/27/17 09:32 Plt Morphology Comment Not Reportable 03/27/17 09:32 RBC Morphology Not Reportable 03/27/17 09:32 Dimorphic RBCs Not Reportable 03/27/17 09:32 Polychromasia Not Reportable 03/27/17 09:32 Hypochromasia 1+ 03/27/17 09:32 Poikilocytosis Not Reportable 03/27/17 09:32 Anisocytosis 1+ 03/27/17 09:32 Microcytosis Not Reportable 03/27/17 09:32 Macrocytosis Not Reportable 03/27/17 09:32 Spherocytes Not Reportable 03/27/17 09:32 Pappenheimer Bodies Not Reportable 03/27/17 09:32 Sickle Cells Not Reportable 03/27/17 09:32 Target Cells Not Reportable 03/27/17 09:32 Tear Drop Cells Not Reportable 03/27/17 09:32 Ovalocytes Not Reportable 03/27/17 09:32 Helmet Cells Not Reportable 03/27/17 09:32 Rae-Elco Bodies Not Reportable 03/27/17 09:32 [place] Rings Not Reportable 03/27/17 09:32 Vannessa Cells Not Reportable 03/27/17 09:32 Bite Cells Not Reportable 03/27/17 09:32 Crenated Cell Not Reportable 03/27/17 09:32 Elliptocytes Not Reportable 03/27/17 09:32 Acanthocytes (Spur) Not Reportable 03/27/17 09:32 Rouleaux Not Reportable 03/27/17 09:32 Hemoglobin C Crystals Not Reportable 03/27/17 09:32 Schistocytes Rare 03/27/17 09:32 Malaria parasites Not Reportable 03/27/17 09:32 Gaurav Bodies Not Reportable 03/27/17 09:32 Hem Pathologist Commnt No 03/27/17 09:32 PT 13.3 Sec. (12.2-14.9) 03/27/17 09:32 INR 0.96 (0.87-1.13) 03/27/17 09:32 VBG pH 7.338 (7.320-7.420) 03/27/17 09:32 Sodium 137 mmol/L (137-145) 03/27/17 09:32 Potassium 3.6 mmol/L (3.6-5.0) 03/27/17 09:32 Chloride 99.9 mmol/L (98-107) 03/27/17 09:32 Carbon Dioxide 23 mmol/L (22-30) 03/27/17 09:32 Anion Gap 18 mmol/L 03/27/17 09:32 BUN 15 mg/dL (7-17) 03/27/17 09:32 Creatinine 0.5 mg/dL (0.7-1.2) L 03/27/17 09:32 Estimated GFR > 60 ml/min 03/27/17 09:32 BUN/Creatinine Ratio 30 % 03/27/17 09:32 Glucose 112 mg/dL (65-100) H 03/27/17 09:32 Lactic Acid 1.50 mmol/L (0.7-2.0) 03/27/17 20:49 Calcium 8.3 mg/dL (8.4-10.2) L 03/27/17 09:32 Total Bilirubin 0.20 mg/dL (0.1-1.2) 03/27/17 09:32 AST 27 units/L (5-40) 03/27/17 09:32 ALT 13 units/L (7-56) 03/27/17 09:32 Alkaline Phosphatase 72 units/L (35-129) 03/27/17 09:32 Total Protein 8.2 g/dL (6.3-8.2) 03/27/17 09:32 Albumin 3.5 g/dL (3.9-5) L 03/27/17 09:32 Albumin/Globulin Ratio 0.7 % 03/27/17 09:32 Urine Color Yellow (Yellow) 03/27/17 12:30 Urine Turbidity Clear (Clear) 03/27/17 12:30 Urine pH 6.0 (5.0-7.0) 03/27/17 12:30 Ur Specific [place] 1.013 (1.003-1.030) 03/27/17 12:30 Urine Protein <15 mg/dl mg/dL (Negative) 03/27/17 12:30 Urine Glucose (UA) Neg mg/dL (Negative) 03/27/17 12:30 Urine Ketones Neg mg/dL (Negative) 03/27/17 12:30 Urine Blood Mod (Negative) 03/27/17 12:30 Urine Nitrite Neg (Negative) 03/27/17 12:30 Urine Bilirubin Neg (Negative) 03/27/17 12:30 Urine Urobilinogen < 2.0 mg/dL (<2.0) 03/27/17 12:30 Ur Leukocyte Esterase Neg (Negative) 03/27/17 12:30 Urine WBC (Auto) 1.0 /HPF (0.0-6.0) 03/27/17 12:30 Urine RBC (Auto) 2.0 /HPF (0.0-6.0) 03/27/17 12:30 U Epithel Cells (Auto) 1.0 /HPF (0-13.0) 03/27/17 12:30 Urine Mucus Few /HPF 03/27/17 12:30 Blood Type B POSITIVE 03/27/17 17:05 Antibody Screen Negative 03/27/17 17:05 <SHANTELL CRAFT Tom - Last Filed: 03/29/17 11:54> Assessment and Plan Assessment and plan: I saw and evaluated the patient. I agree with the findings and the plan of care as documented in the PA's~note, with the following corrections and additions. Hospitalist Physical - Constitutional Vitals: Temp Pulse Resp BP Pulse Ox 99.6 F 100 H 20 112/59 100 03/29/17 08:48 03/29/17 08:48 03/29/17 08:48 03/29/17 08:48 03/29/17 08:48 Results - Labs CBC & Chem 7: 03/27/17 09:32 03/27/17 09:32 Labs: Laboratory Last Values WBC 1.5 K/mm3 (4.5-11.0) L* 03/27/17 09:32 RBC 3.44 M/mm3 (3.65-5.03) L 03/27/17 09:32 Hgb 9.1 gm/dl (10.1-14.3) L 03/27/17 09:32 Hct 28.2 % (30.3-42.9) L 03/27/17 09:32 MCV 82 fl (79-97) 03/27/17 09:32 MCH 27 pg (28-32) L 03/27/17 09:32 MCHC 32 % (30-34) 03/27/17 09:32 RDW 15.4 % (13.2-15.2) H 03/27/17 09:32 Plt Count 134 K/mm3 (140-440) L 03/27/17 09:32 Add Manual Diff Complete 03/27/17 09:32 Total Counted 100 03/27/17 09:32 Seg Neuts % (Manual) 50.0 % (40.0-70.0) 03/27/17 09:32 Band Neutrophils % 12.0 % 03/27/17 09:32 Lymphocytes % (Manual) 29.0 % (13.4-35.0) 03/27/17 09:32 Reactive Lymphs % (Man) 0 % 03/27/17 09:32 Monocytes % (Manual) 8.0 % (0.0-7.3) H 03/27/17 09:32 Eosinophils % (Manual) 1.0 % (0.0-4.3) 03/27/17 09:32 Basophils % (Manual) 0 % (0.0-1.8) 03/27/17 09:32 Metamyelocytes % 0 % 03/27/17 09:32 Myelocytes % 0 % 03/27/17 09:32 Promyelocytes % 0 % 03/27/17 09:32 Blast Cells % 0 % 03/27/17 09:32 Nucleated RBC % Not Reportable 03/27/17 09:32 Seg Neutrophils # Man 0.8 K/mm3 (1.8-7.7) L 03/27/17 09:32 Band Neutrophils # 0.2 K/mm3 03/27/17 09:32 Lymphocytes # (Manual) 0.4 K/mm3 (1.2-5.4) L 03/27/17 09:32 Abs React Lymphs (Man) 0.0 K/mm3 03/27/17 09:32 Monocytes # (Manual) 0.1 K/mm3 (0.0-0.8) 03/27/17 09:32 Eosinophils # (Manual) 0.0 K/mm3 (0.0-0.4) 03/27/17 09:32 Basophils # (Manual) 0.0 K/mm3 (0.0-0.1) 03/27/17 09:32 Metamyelocytes # 0.0 K/mm3 03/27/17 09:32 Myelocytes # 0.0 K/mm3 03/27/17 09:32 Promyelocytes # 0.0 K/mm3 03/27/17 09:32 Blast Cells # 0.0 K/mm3 03/27/17 09:32 WBC Morphology Not Reportable 03/27/17 09:32 Hypersegmented Neuts Not Reportable 03/27/17 09:32 Hyposegmented Neuts Not Reportable 03/27/17 09:32 Hypogranular Neuts Not Reportable 03/27/17 09:32 Smudge Cells Not Reportable 03/27/17 09:32 Toxic Granulation Not Reportable 03/27/17 09:32 Toxic Vacuolation Not Reportable 03/27/17 09:32 Dohle Bodies Not Reportable 03/27/17 09:32 Pelger-Huet Anomaly Not Reportable 03/27/17 09:32 La Rods Not Reportable 03/27/17 09:32 Platelet Estimate Consistent w auto 03/27/17 09:32 Clumped Platelets Not Reportable 03/27/17 09:32 Plt Clumps, EDTA Not Reportable 03/27/17 09:32 Large Platelets Not Reportable 03/27/17 09:32 Giant Platelets Not Reportable 03/27/17 09:32 Platelet Satelliting Not Reportable 03/27/17 09:32 Plt Morphology Comment Not Reportable 03/27/17 09:32 RBC Morphology Not Reportable 03/27/17 09:32 Dimorphic RBCs Not Reportable 03/27/17 09:32 Polychromasia Not Reportable 03/27/17 09:32 Hypochromasia 1+ 03/27/17 09:32 Poikilocytosis Not Reportable 03/27/17 09:32 Anisocytosis 1+ 03/27/17 09:32 Microcytosis Not Reportable 03/27/17 09:32 Macrocytosis Not Reportable 03/27/17 09:32 Spherocytes Not Reportable 03/27/17 09:32 Pappenheimer Bodies Not Reportable 03/27/17 09:32 Sickle Cells Not Reportable 03/27/17 09:32 Target Cells Not Reportable 03/27/17 09:32 Tear Drop Cells Not Reportable 03/27/17 09:32 Ovalocytes Not Reportable 03/27/17 09:32 Helmet Cells Not Reportable 03/27/17 09:32 Rae-Elco Bodies Not Reportable 03/27/17 09:32 [place] Rings Not Reportable 03/27/17 09:32 [place] Cells Not Reportable 03/27/17 09:32 Bite Cells Not Reportable 03/27/17 09:32 Crenated Cell Not Reportable 03/27/17 09:32 Elliptocytes Not Reportable 03/27/17 09:32 Acanthocytes (Spur) Not Reportable 03/27/17 09:32 Rouleaux Not Reportable 03/27/17 09:32 Hemoglobin C Crystals Not Reportable 03/27/17 09:32 Schistocytes Rare 03/27/17 09:32 Malaria parasites Not Reportable 03/27/17 09:32 Gaurav Bodies Not Reportable 03/27/17 09:32 Hem Pathologist Commnt No 03/27/17 09:32 PT 13.3 Sec. (12.2-14.9) 03/27/17 09:32 INR 0.96 (0.87-1.13) 03/27/17 09:32 VBG pH 7.338 (7.320-7.420) 03/27/17 09:32 Sodium 137 mmol/L (137-145) 03/27/17 09:32 Potassium 3.6 mmol/L (3.6-5.0) 03/27/17 09:32 Chloride 99.9 mmol/L (98-107) 03/27/17 09:32 Carbon Dioxide 23 mmol/L (22-30) 03/27/17 09:32 Anion Gap 18 mmol/L 03/27/17 09:32 BUN 15 mg/dL (7-17) 03/27/17 09:32 Creatinine 0.5 mg/dL (0.7-1.2) L 03/27/17 09:32 Estimated GFR > 60 ml/min 03/27/17 09:32 BUN/Creatinine Ratio 30 % 03/27/17 09:32 Glucose 112 mg/dL (65-100) H 03/27/17 09:32 Lactic Acid 1.50 mmol/L (0.7-2.0) 03/27/17 20:49 Calcium 8.3 mg/dL (8.4-10.2) L 03/27/17 09:32 Total Bilirubin 0.20 mg/dL (0.1-1.2) 03/27/17 09:32 AST 27 units/L (5-40) 03/27/17 09:32 ALT 13 units/L (7-56) 03/27/17 09:32 Alkaline Phosphatase 72 units/L (35-129) 03/27/17 09:32 Total Protein 8.2 g/dL (6.3-8.2) 03/27/17 09:32 Albumin 3.5 g/dL (3.9-5) L 03/27/17 09:32 Albumin/Globulin Ratio 0.7 % 03/27/17 09:32 Urine Color Yellow (Yellow) 03/27/17 12:30 Urine Turbidity Clear (Clear) 03/27/17 12:30 Urine pH 6.0 (5.0-7.0) 03/27/17 12:30 Ur Specific [place] 1.013 (1.003-1.030) 03/27/17 12:30 Urine Protein <15 mg/dl mg/dL (Negative) 03/27/17 12:30 Urine Glucose (UA) Neg mg/dL (Negative) 03/27/17 12:30 Urine Ketones Neg mg/dL (Negative) 03/27/17 12:30 Urine Blood Mod (Negative) 03/27/17 12:30 Urine Nitrite Neg (Negative) 03/27/17 12:30 Urine Bilirubin Neg (Negative) 03/27/17 12:30 Urine Urobilinogen < 2.0 mg/dL (<2.0) 03/27/17 12:30 Ur Leukocyte Esterase Neg (Negative) 03/27/17 12:30 Urine WBC (Auto) 1.0 /HPF (0.0-6.0) 03/27/17 12:30 Urine RBC (Auto) 2.0 /HPF (0.0-6.0) 03/27/17 12:30 U Epithel Cells (Auto) 1.0 /HPF (0-13.0) 03/27/17 12:30 Urine Mucus Few /HPF 03/27/17 12:30 Blood Type B POSITIVE 03/27/17 17:05 Antibody Screen Negative 03/27/17 17:05
--- NOTE | 2017-03-29 11:54 | Progress Note ---
Assessment and Plan Assessment: 1) HIV infection diagnosed in 2012. Last time she took her ART was 2 months ago. She lost her medical insurance. 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 Natalia Juarez MD Infectious Diseases Specialist [facility] ([facility]) [phone] O [phone] Subjective Date of service: 03/29/17 Principal diagnosis: buttocks rash Interval history: Feels better, rash pain some better. No fever. Microbiology: Blood cultures: 03/27 GPC 1 of 4 Urine cultures: 03/27 <10K Current Antimicrobials: Acyclovir 03/28 Vancomycin 03/27 Previous Antimicrobials: Metronidazole 03/27 Objective - Exam Narrative Exam: General appearance: Alert in NAD, conversant Eyes: anicteric sclerae, moist conjunctivae; no lid-lag; PERRLA HENT: Atraumatic; oropharynx clear Neck: Trachea midline; supple, no thyromegaly or lymphadenopathy Lungs: CTA, with normal respiratory effort and no intercostal retractions CV: RRR, no murmurs Abdomen: Soft, non-tender; no masses or hepatosplenomegaly Extremities: No peripheral edema or extremity lymphadenopathy Skin: multiple round superficial ulcers in sacrum, nelson buttocks with periwound erythema no purulence Psych: Appropriate affect, alert and oriented to person, place and time. Neuro: alert and oriented x 3. Moving all extermities Lines: No CVL / PICC - Constitutional Vitals: Vital Signs Temp Pulse Resp BP Pulse Ox 99.6 F 100 H 20 112/59 100 03/29/17 08:48 03/29/17 08:48 03/29/17 08:48 03/29/17 08:48 03/29/17 08:48 Temperature -Last 24 Hours Temperature 99.6 F Temperature 99.4 F Temperature 97.8 F - Labs CBC & Chem 7: 03/27/17 09:32 03/27/17 09:32
[2017-03-29] MEDS: ZOFRAN IV PRN (23:21)
[2017-03-30] MEDS: ZOVIRAX IV SCH ×3 (05:44→22:34)
[2017-03-30] MEDS: NACL 0.9% IV SCH ×3 (05:44→22:34)
[2017-03-30] MEDS: PERCOCET 5/325 PO PRN ×3 (05:45→20:32)
[2017-03-30 06:43] LABS: Hematocrit 23.9 % (30.3-42.9); Hemoglobin 7.9 gm/dl (10.1-14.3); Mean Corpuscular HGB Conc 33 % (30-34); Mean Corpuscular Hemoglobin 27 pg (28-32); Mean Corpuscular Volume 82 fl (79-97); Platelet Count 131 K/mm3 (140-440); Red Blood Count 2.94 M/mm3 (3.65-5.03)
[2017-03-30] MEDS: ZOFRAN IV PRN (06:46)
[2017-03-30 06:47] LABS: White Blood Count 1.2 K/mm3 (4.5-11.0)
[2017-03-30 07:43] LABS: Anisocytosis 1+; Basophils % (Manual) 0 % (0.0-1.8); Blastocytes % (Manual) 0 %; Elliptocytes 1+; Eosinophils % (Manual) 0 % (0.0-4.3); Hypochromasia 1+; Ovalocytes 1+
[2017-03-30 07:44] LABS: Diff Status Complete; Large Platelets Few
[2017-03-30] MEDS: BUTT PASTE/LIDOCAINE TP SCH ×3 (08:52→20:32)
[2017-03-30] MEDS: VANCOMYCIN/NS 1 GM/250 ML 1 GM/250 ML BAG IV SCH ×3 (09:28→20:33)
--- NOTE | 2017-03-30 12:13 | Progress Note ---
Assessment and Plan Assessment: 1) HIV infection diagnosed in 2012. Last time she took her ART was 2 months ago. She lost her medical insurance. 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 Wound cx + MSSA Plan: -follow-up blood cultures -stop acyclovir IV -stop vancomycin -check CD4/VL/genotype - pending -ok to d/c home once pain is better on valtrex 1 g PO q12h and ceftin 500 mg bid total [address] Parker for your consultation, will follow up with you. Natalia Juarez MD Infectious Diseases Specialist [facility] ([facility]) M [phone] Subjective Date of service: 03/30/17 Principal diagnosis: buttocks rash Interval history: Feels better, rash pain some better. No fever. Microbiology: Blood cultures: 03/27 GPC 1 of 4 Urine cultures: 03/27 <10K Wound cx: MSSA Current Antimicrobials: Acyclovir 03/28 Vancomycin 03/27 Previous Antimicrobials: Metronidazole 03/27 Objective - Exam Narrative Exam: General appearance: Alert in NAD, conversant Eyes: anicteric sclerae, moist conjunctivae; no lid-lag; PERRLA HENT: Atraumatic; oropharynx clear Neck: Trachea midline; supple, no thyromegaly or lymphadenopathy Lungs: CTA, with normal respiratory effort and no intercostal retractions CV: RRR, no murmurs Abdomen: Soft, non-tender; no masses or hepatosplenomegaly Extremities: No peripheral edema or extremity lymphadenopathy Skin: multiple round superficial ulcers in sacrum, nelson buttocks with periwound erythema no purulence Psych: Appropriate affect, alert and oriented to person, place and time. Neuro: alert and oriented x 3. Moving all extermities Lines: No CVL / PICC - Constitutional Vitals: Vital Signs Temp Pulse Resp BP Pulse Ox 98.7 F 104 H 18 111/78 95 03/30/17 07:46 03/30/17 07:46 03/30/17 07:46 03/30/17 07:46 03/30/17 07:46 Temperature -Last 24 Hours Temperature 98.7 F Temperature 98.8 F Temperature 98.1 F - Labs CBC & Chem 7: 03/30/17 06:00 03/27/17 09:32 Labs: Abnormal lab results 03/30/17 Range/Units 06:00 WBC 1.2 L* (4.5-11.0) K/mm3 RBC 2.94 L (3.65-5.03) M/mm3 Hgb 7.9 L (10.1-14.3) gm/dl Hct 23.9 L (30.3-42.9) % MCH 27 L (28-32) pg Plt Count 131 L (140-440) K/mm3 Seg Neuts % (Manual) 80.0 H (40.0-70.0) % Lymphocytes % (Manual) 4.0 L (13.4-35.0) % Seg Neutrophils # Man 1.0 L (1.8-7.7) K/mm3 Lymphocytes # (Manual) 0.0 L (1.2-5.4) K/mm3
--- NOTE | 2017-03-30 12:18 | Discharge Summary ---
Providers - Providers Date of Admission: 03/27/17 12:47 Date of discharge: 03/30/17 Attending physician: SHANTELL CRAFT 03/27/17 14:37 Consult to Wound/ET Nurse [CONS] Stat Reason For Exam: wound eval 03/28/17 09:17 Consult to Physician [CONS] Routine Consulting Provider: NAHEED HANSEN Reason For Exam: HIV care Place consult to:: Jenniffer Notified:: yes Time called:: 10:45 Comment:: I notified DR NI Primary care physician: WEATHER ALGORITHM SCIENTIST Hospitalization Condition: Stable Hospital course: 31 YO Female with HIV presents to ED for evaluation. Pt states that she has experienced sores on her buttocks over the past week with worsening pain and foul smelling drainage over that past 3 days. Pt also acknowledges severe generalized weakness. Pain in buttocks is 8/10, constant, worse with movement or sitting. No reports of trauma, fever, chills, CP, Palpitations, NVD, syncope , recent in contacts, BRBPR. Pt seen and evaluated in ED and found to have evidence of sepsis. Pt blood pressure was 79/45. Pt initiated on Sepsis protocol , and treated with antibiotics, and IVF resuscitation therapy Sepsis HSV cellulitis HIV/AIDS ID following -check CD4/VL/genotype Buttock rash ID following -continue acyclovir IV. Hypotension Resolved, continue IVF Will continue to monitor Pancytopenia from AIDS per ID, Dr. Ni Assessment: "1) HIV infection diagnosed in 2012. Last time she took her ART was 2 months ago. She lost her medical insurance. 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 Wound cx + MSSA Plan: -follow-up blood cultures -stop acyclovir IV -stop vancomycin -check CD4/VL/genotype - pending -ok to d/c home once pain is better on valtrex 1 g PO q12h and ceftin 500 mg bid total 10 day" ===>d/w dr. Ni, the MSSA is most likely a colonizer, so no Ceftin, just valtrex Disposition: DC-01 TO HOME OR SELFCARE Time spent for discharge: 36 min Core Measure Documentation - Palliative Care Palliative Care/ Comfort Measures: Not Applicable - Core Measures Any of the following diagnoses?: none - VTE Discharge Requirements Deep Vein Thrombosis/Pulmonary Embolism Present on Admission: No Has pt received <5 days of overlap therapy or INR<2.0: No Anticoagulant overlap therapy prescribed at discharge: No Contraindication No Overlap Therapy order at DC: Not Indicated Exam - Physical Exam Narrative exam: GEN: WDWN, NAD, AWAKE, ALERT, ORIENTATED x 3 HEENT: NCAT, EOMI, PERRL, OP Clear NECK: supple, no adenopathy, no thyromegaly, no JVD CVS/HEART: RRR, NORMAL S1S2, NO JVD, pulses present bilaterally CHEST/LUNGS: CTA B, Symmetrical chest expansion, good air entry bilaterally GI/Abdomen: soft, NTND, good bowel sounds, no guarding or rebound /Bladder: no suprapubic tenderness, no CVA or paraspinal tenderness EXT/Skin: no c/c/e, upper cease of buttock rash/vesicles in chain fashion are resolving MSK: FROM x 4 Neuro: CN 2-12 grossly intact, no new focal deficits Psych: calm - Constitutional Vitals: Temp Pulse Resp BP Pulse Ox 98.7 F 104 H 18 111/78 95 03/30/17 07:46 03/30/17 07:46 03/30/17 07:46 03/30/17 07:46 03/30/17 07:46 Plan Activity: other Diet: regular Wound: per wound nurse instructions Follow up with: PRIMARY CARE, [Primary Care Provider] - 3-5 Days Prescriptions: oxyCODONE /ACETAMINOPHEN [Percocet 5/325 mg] 1 tab PO Q6H PRN #15 tablet PRN Reason: Pain , Severe (7-10) Valacyclovir HCl [Valtrex] 1,000 mg PO BID #10 day Zinc/Xylo/Neosp/Vit A&D [Butt Paste/Lidocaine] 1 applic TP TID #1 jar
[2017-03-31 05:07] LABS: HIV-1 RNA QN PCR 5.96 Log cps/mL (<1.30)
[2017-03-31] MEDS: VANCOMYCIN/NS 1 GM/250 ML 1 GM/250 ML BAG IV SCH ×2 (05:15→10:14)
[2017-03-31] MEDS: PERCOCET 5/325 PO PRN (05:49)
[2017-03-31] MEDS: ZOFRAN IV PRN (05:50)
[2017-03-31] MEDS: NACL 0.9% IV SCH (06:55)
[2017-03-31] MEDS: ZOVIRAX IV SCH (06:55)
[2017-03-31 08:20] VITALS: BP 113/75
[2017-03-31] MEDS ORDERED: VALTREX PO SCH (10:00)
[2017-03-31] MEDS: BUTT PASTE/LIDOCAINE TP SCH (10:08)
--- NOTE | 2017-03-31 11:21 | Progress Note ---
Assessment and Plan Assessment and plan: 31 YO Female with HIV presents to ED for evaluation. Pt states that she has experienced sores on her buttocks over the past week with worsening pain and foul smelling drainage over that past 3 days. Pt also acknowledges severe generalized weakness. Pain in buttocks is 8/10, constant, worse with movement or sitting. No reports of trauma, fever, chills, CP, Palpitations, NVD, syncope , recent in contacts, [facility]. Pt seen and evaluated in ED and found to have evidence of sepsis. Pt blood pressure was 79/45. Pt initiated on Sepsis protocol , and treated with antibiotics, and IVF resuscitation therapy Sepsis HSV cellulitis HIV/AIDS ID following -check CD4/VL/genotype Buttock rash ID following -continue acyclovir IV. Hypotension Resolved, continue IVF Will continue to monitor Pancytopenia from AIDS per ID, Dr. Aguilera Assessment: "1) HIV infection diagnosed in 2012. Last time she took her ART was 2 months ago. She lost her medical insurance. 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 Wound cx + MSSA Plan: -follow-up blood cultures -stop acyclovir IV -stop vancomycin -check CD4/VL/genotype - pending -ok to d/c home once pain is better on valtrex 1 g PO q12h and ceftin 500 mg bid total 10 day" ===>d/w dr. Aguilera, the MSSA is most likely a colonizer, so no Ceftin, just valtrex History Interval history: Patient was seen and examined. Follow-up on current diagnosis. Overnight uneventful. Patient denies any chest pain, shortness breath, nausea/vomiting or severe headaches. Imaging, nursing note, chart, labs and old chart reviewed. Discussed with patient. Hospitalist Physical - Physical exam Narrative exam: GEN: WDWN, NAD, AWAKE, ALERT, ORIENTATED x 3 HEENT: NCAT, EOMI, PERRL, OP Clear NECK: supple, no adenopathy, no thyromegaly, no JVD CVS/HEART: RRR, NORMAL S1S2, NO JVD, pulses present bilaterally CHEST/LUNGS: CTA B, Symmetrical chest expansion, good air entry bilaterally GI/Abdomen: soft, NTND, good bowel sounds, no guarding or rebound /Bladder: no suprapubic tenderness, no CVA or paraspinal tenderness EXT/Skin: no c/c/e, upper cease of buttock rash/vesicles in chain fashion are resolving MSK: FROM x 4 Neuro: CN 2-12 grossly intact, no new focal deficits Psych: calm - Constitutional Vitals: Temp Pulse Resp BP Pulse Ox 98.6 F 100 H 18 113/75 98 03/31/17 07:44 03/31/17 07:44 03/31/17 07:44 03/31/17 07:44 03/31/17 07:44 General appearance: Present: mild distress Results - Labs CBC & Chem 7: 03/30/17 06:00 03/27/17 09:32 Labs: Laboratory Last Values WBC 1.2 K/mm3 (4.5-11.0) L* 03/30/17 06:00 RBC 2.94 M/mm3 (3.65-5.03) L 03/30/17 06:00 Hgb 7.9 gm/dl (10.1-14.3) L 03/30/17 06:00 Hct 23.9 % (30.3-42.9) L 03/30/17 06:00 MCV 82 fl (79-97) 03/30/17 06:00 MCH 27 pg (28-32) L 03/30/17 06:00 MCHC 33 % (30-34) 03/30/17 06:00 RDW 15.0 % (13.2-15.2) 03/30/17 06:00 Plt Count 131 K/mm3 (140-440) L 03/30/17 06:00 Add Manual Diff Complete 03/30/17 06:00 Total Counted 25 03/30/17 06:00 Seg Neuts % (Manual) 80.0 % (40.0-70.0) H 03/30/17 06:00 Band Neutrophils % 4.0 % 03/30/17 06:00 Lymphocytes % (Manual) 4.0 % (13.4-35.0) L 03/30/17 06:00 Reactive Lymphs % (Man) 8.0 % 03/30/17 06:00 Monocytes % (Manual) 4.0 % (0.0-7.3) 03/30/17 06:00 Eosinophils % (Manual) 0 % (0.0-4.3) 03/30/17 06:00 Basophils % (Manual) 0 % (0.0-1.8) 03/30/17 06:00 Metamyelocytes % 0 % 03/30/17 06:00 Myelocytes % 0 % 03/30/17 06:00 Promyelocytes % 0 % 03/30/17 06:00 Blast Cells % 0 % 03/30/17 06:00 Nucleated RBC % Not Reportable 03/30/17 06:00 Seg Neutrophils # Man 1.0 K/mm3 (1.8-7.7) L 03/30/17 06:00 Band Neutrophils # 0.0 K/mm3 03/30/17 06:00 Lymphocytes # (Manual) 0.0 K/mm3 (1.2-5.4) L 03/30/17 06:00 Abs React Lymphs (Man) 0.1 K/mm3 03/30/17 06:00 Monocytes # (Manual) 0.0 K/mm3 (0.0-0.8) 03/30/17 06:00 Eosinophils # (Manual) 0.0 K/mm3 (0.0-0.4) 03/30/17 06:00 Basophils # (Manual) 0.0 K/mm3 (0.0-0.1) 03/30/17 06:00 Metamyelocytes # 0.0 K/mm3 03/30/17 06:00 Myelocytes # 0.0 K/mm3 03/30/17 06:00 Promyelocytes # 0.0 K/mm3 03/30/17 06:00 Blast Cells # 0.0 K/mm3 03/30/17 06:00 WBC Morphology Not Reportable 03/30/17 06:00 Hypersegmented Neuts Not Reportable 03/30/17 06:00 Hyposegmented Neuts Not Reportable 03/30/17 06:00 Hypogranular Neuts Not Reportable 03/30/17 06:00 Smudge Cells Not Reportable 03/30/17 06:00 Toxic Granulation Not Reportable 03/30/17 06:00 Toxic Vacuolation Not Reportable 03/30/17 06:00 Dohle Bodies Not Reportable 03/30/17 06:00 Pelger-Huet Anomaly Not Reportable 03/30/17 06:00 La Rods Not Reportable 03/30/17 06:00 Platelet Estimate Appears normal 03/30/17 06:00 Clumped Platelets Not Reportable 03/30/17 06:00 Plt Clumps, EDTA Not Reportable 03/30/17 06:00 Large Platelets Few 03/30/17 06:00 Giant Platelets Not Reportable 03/30/17 06:00 Platelet Satelliting Not Reportable 03/30/17 06:00 Plt Morphology Comment Not Reportable 03/30/17 06:00 RBC Morphology Not Reportable 03/30/17 06:00 Dimorphic RBCs Not Reportable 03/30/17 06:00 Polychromasia Not Reportable 03/30/17 06:00 Hypochromasia 1+ 03/30/17 06:00 Poikilocytosis Not Reportable 03/30/17 06:00 Anisocytosis 1+ 03/30/17 06:00 Microcytosis Not Reportable 03/30/17 06:00 Macrocytosis Not Reportable 03/30/17 06:00 Spherocytes Not Reportable 03/30/17 06:00 Pappenheimer Bodies Not Reportable 03/30/17 06:00 Sickle Cells Not Reportable 03/30/17 06:00 Target Cells Not Reportable 03/30/17 06:00 Tear Drop Cells Not Reportable 03/30/17 06:00 Ovalocytes 1+ 03/30/17 06:00 Helmet Cells Not Reportable 03/30/17 06:00 [place] Bodies Not Reportable 03/30/17 06:00 [place] Rings Not Reportable 03/30/17 06:00 Vann[place] Cells Not Reportable 03/30/17 06:00 Bite Cells Not Reportable 03/30/17 06:00 Crenated Cell Not Reportable 03/30/17 06:00 Elliptocytes 1+ 03/30/17 06:00 Acanthocytes (Spur) Not Reportable 03/30/17 06:00 Rouleaux Not Reportable 03/30/17 06:00 Hemoglobin C Crystals Not Reportable 03/30/17 06:00 Schistocytes Not Reportable 03/30/17 06:00 Malaria parasites Not Reportable 03/30/17 06:00 Gaurav Bodies Not Reportable 03/30/17 06:00 Hem Pathologist Commnt No 03/30/17 06:00 PT 13.3 Sec. (12.2-14.9) 03/27/17 09:32 INR 0.96 (0.87-1.13) 03/27/17 09:32 VBG pH 7.338 (7.320-7.420) 03/27/17 09:32 Sodium 137 mmol/L (137-145) 03/27/17 09:32 Potassium 3.6 mmol/L (3.6-5.0) 03/27/17 09:32 Chloride 99.9 mmol/L (98-107) 03/27/17 09:32 Carbon Dioxide 23 mmol/L (22-30) 03/27/17 09:32 Anion Gap 18 mmol/L 03/27/17 09:32 BUN 15 mg/dL (7-17) 03/27/17 09:32 Creatinine 0.5 mg/dL (0.7-1.2) L 03/27/17 09:32 Estimated GFR > 60 ml/min 03/27/17 09:32 BUN/Creatinine Ratio 30 % 03/27/17 09:32 Glucose 112 mg/dL (65-100) H 03/27/17 09:32 Lactic Acid 1.50 mmol/L (0.7-2.0) 03/27/17 20:49 Calcium 8.3 mg/dL (8.4-10.2) L 03/27/17 09:32 Total Bilirubin 0.20 mg/dL (0.1-1.2) 03/27/17 09:32 AST 27 units/L (5-40) 03/27/17 09:32 ALT 13 units/L (7-56) 03/27/17 09:32 Alkaline Phosphatase 72 units/L (35-129) 03/27/17 09:32 Total Protein 8.2 g/dL (6.3-8.2) 03/27/17 09:32 Albumin 3.5 g/dL (3.9-5) L 03/27/17 09:32 Albumin/Globulin Ratio 0.7 % 03/27/17 09:32 Urine Color Yellow (Yellow) 03/27/17 12:30 Urine Turbidity Clear (Clear) 03/27/17 12:30 Urine pH 6.0 (5.0-7.0) 03/27/17 12:30 Ur Specific [place] 1.013 (1.003-1.030) 03/27/17 12:30 Urine Protein <15 mg/dl mg/dL (Negative) 03/27/17 12:30 Urine Glucose (UA) Neg mg/dL (Negative) 03/27/17 12:30 Urine Ketones Neg mg/dL (Negative) 03/27/17 12:30 Urine Blood Mod (Negative) 03/27/17 12:30 Urine Nitrite Neg (Negative) 03/27/17 12:30 Urine Bilirubin Neg (Negative) 03/27/17 12:30 Urine Urobilinogen < 2.0 mg/dL (<2.0) 03/27/17 12:30 Ur Leukocyte Esterase Neg (Negative) 03/27/17 12:30 Urine WBC (Auto) 1.0 /HPF (0.0-6.0) 03/27/17 12:30 Urine RBC (Auto) 2.0 /HPF (0.0-6.0) 03/27/17 12:30 U Epithel Cells (Auto) 1.0 /HPF (0-13.0) 03/27/17 12:30 Urine Mucus Few /HPF 03/27/17 12:30 Vancomycin Trough 12.3 ug/mL (5.0-20.0) 03/29/17 10:49 HIV-1 RNA PCR copies/ml [id number] copies/mL (<20) H 03/28/17 14:38 HIV-1 RNA (PCR) log 5.96 Log cps/mL (<1.30) H 03/28/17 14:38 Blood Type B POSITIVE 03/27/17 17:05 Antibody Screen Negative 03/27/17 17:05
--- NOTE | 2017-03-31 11:23 | Event Note ---
Date: 03/31/17 Please see discharge summary from yesterday, patient did not leave due to pain. Patient was seen and examined on discharge She has been given Percocet for outpatient pain, I suspect the pain last approximately 7 days due to hepatic nerve pain Time of discharge 33 minutes
== END 2017-03-31 12:15 | disposition home or self-care (01) | DRG 975 ==
LOC: ED 08:43 → 3A 12:47
PROVIDERS: ADMIT Internal Medicine; ATTEND Internal Medicine
DX: B20 Human immunodeficiency virus [HIV] disease (principal); A41.9 Sepsis, unspecified organism; L03.317 Cellulitis of buttock; B00.9 Herpesviral infection, unspecified; Z88.8 Allergy status to other drugs, medicaments and biological substances; Z82.49 Family history of ischemic heart disease and other diseases of the circulatory system; L98.499 Non-pressure chronic ulcer of skin of other sites with unspecified severity
CPT/HCPCS: 36415; 71010; 80053; 80202; 81001; 82024; 82140; 82805; 85007; 85025; 85610; 86850; 86900; 86901; 87040; 87076; 87086; 87116; 87186; 87536; 87901; 93005; 93010; J0133; J1170; J2185; J2270; J2405; J3370; J7030; J7040; J7050

== ENCOUNTER 2017-05-12 09:20 | Inpatient (IN) | payer MEDICARE ==
--- NOTE | 2017-05-12 11:18 | XRay Report ---
ROUTINE CHEST, TWO VIEWS: HISTORY: Shortness of breath. Compared to 03/27/17. Minimal airspace opacity at has developed in the lingula. This may represent segmental atelectasis or early infiltrate. Please correlate with the patient's clinical presentation. The remainder of the lungs are clear. No pleural effusion or pneumothorax. Normal heart and mediastinal structures. Normal bony thorax. IMPRESSION: Questionable lingular opacity, see above.
[2017-05-12 11:24] LABS: Basophils % (Auto) 0.3 % (0.0-1.8); Eosinophils % (Auto) 0.1 % (0.0-4.3); Hematocrit 27.9 % (30.3-42.9); Hemoglobin 8.8 gm/dl (10.1-14.3); Lymphocytes # (Auto) 0.4 K/mm3 (1.2-5.4); Lymphocytes % (Auto) 13.7 % (13.4-35.0); Mean Corpuscular HGB Conc 32 % (30-34); Mean Corpuscular Volume 81 fl (79-97); Monocytes # (Auto) 0.2 K/mm3 (0.0-0.8); Platelet Count 165 K/mm3 (140-440); Red Blood Count 3.47 M/mm3 (3.65-5.03); Red Cell Distribution Width 16.5 % (13.2-15.2)
[2017-05-12 11:27] LABS: Mean Corpuscular Hemoglobin 25 pg (28-32)
[2017-05-12 11:45] LABS: BUN/Creatinine Ratio 22; Blood Urea Nitrogen 11 mg/dL (7-17); Calcium 8.3 mg/dL (8.4-10.2); Hemolysis Index 3
[2017-05-12] MEDS ORDERED: NACL 0.9% 1000 ML 1,000 ML IV ONE ×2 (16:58→16:59)
[2017-05-12] MEDS ORDERED: ZOFRAN IV ONE (16:58)
[2017-05-12] MEDS ORDERED: LEVAQUIN 750MG/150ML 750 MG/150 ML BAG IV ONE (16:59)
--- NOTE | 2017-05-12 17:04 | Emergency Department Report ---
ED Shortness of Breath HPI - General Chief Complaint: Dyspnea/Respdistress Stated Complaint: FLU/CANT BREATHE Time Seen by Provider: 05/12/17 16:45 Source: patient Mode of arrival: Ambulatory Limitations: No Limitations - History of Present Illness Initial Comments: Patient is 31 years old female with history of HIV positive, doesn't have her HIV medications for a few month, presented to the ER with fever, shortness of breath and cough for the last 3 days. Patient is also stated that she's been having nausea vomiting but no diarrhea. MD Complaint: shortness of breath, cough -: days(s) Severity: moderate Consistency: constant Known History Of: recurrent pnemonia, HIV - Related Data Previous Rx's Medication Instructions Recorded Last Taken Type Acetaminophen [Acetaminophen TAB] 325 mg PO Q4H PRN #30 tablet 03/30/17 Unknown Rx Valacyclovir HCl [Valtrex] 1,000 mg PO BID #10 day 03/30/17 Unknown Rx Zinc/Xylo/Neosp/Vit A&D [Butt 1 applic TP TID #1 jar 03/30/17 Unknown Rx Paste/Lidocaine] oxyCODONE /ACETAMINOPHEN [Percocet 1 tab PO Q6H PRN #15 tablet 03/30/17 Unknown Rx 5/325 mg] Allergies Allergy/AdvReac Type Severity Reaction Status Date / Time amoxicillin Allergy Rash Verified 03/27/17 09:02 ED Review of Systems ROS: Stated complaint: FLU/CANT BREATHE Other details as noted in HPI Comment: All other systems reviewed and negative Constitutional: chills, fever Respiratory: cough Cardiovascular: palpitations, dyspnea on exertion Gastrointestinal: nausea, vomiting. denies: abdominal pain, diarrhea, constipation, hematemesis, melena, hematochezia Genitourinary: denies: urgency, dysuria, frequency, hematuria ED Past Medical Hx - Past Medical History Previous Medical History?: Yes Hx Congestive Heart Failure: No Hx HIV: Yes (since 2012) - Surgical History Past Surgical History?: No - Social History Smoking Status: Never Smoker Substance Use Type: Alcohol, Marijuana, Prescribed - Medications Home Medications: Home Medications Medication Instructions Recorded Confirmed Last Taken Type Acetaminophen [Acetaminophen TAB] 325 mg PO Q4H PRN #30 tablet 03/30/17 Unknown Rx Valacyclovir HCl [Valtrex] 1,000 mg PO BID #10 day 03/30/17 Unknown Rx Zinc/Xylo/Neosp/Vit A&D [Butt 1 applic TP TID #1 jar 03/30/17 Unknown Rx Paste/Lidocaine] oxyCODONE /ACETAMINOPHEN [Percocet 1 tab PO Q6H PRN #15 tablet 03/30/17 Unknown Rx 5/325 mg] ED Physical Exam - General Limitations: No Limitations General appearance: alert - Head Head exam: Present: atraumatic, normocephalic, normal inspection - Eye Eye exam: Present: normal appearance, PERRL - ENT ENT exam: Present: normal exam, normal orophraynx, mucous membranes dry - Neck Neck exam: Present: normal inspection, full ROM. Absent: meningismus, lymphadenopathy, thyromegaly - Respiratory Respiratory exam: Present: rales. Absent: respiratory distress, rhonchi, stridor, chest wall tenderness, accessory muscle use, decreased breath sounds, prolonged expiratory - Cardiovascular Cardiovascular Exam: Present: tachycardia - GI/Abdominal GI/Abdominal exam: Present: soft, normal bowel sounds. Absent: distended, tenderness, guarding, rebound, rigid, organomegaly, mass, bruit, pulsatile mass , hernia - Extremities Exam Extremities exam: Present: normal inspection, full ROM, normal capillary refill - Back Exam Back exam: Present: normal inspection, full ROM. Absent: tenderness, CVA tenderness (R), CVA tenderness (L), muscle spasm, paraspinal tenderness - Neurological Exam Neurological exam: Present: alert, oriented X3, CN II-XII intact, normal gait - Skin Skin exam: Present: warm, intact, normal color ED Course Vital Signs 05/12/17 09:55 Temperature 99.1 F Pulse Rate 147 H Respiratory 18 Rate Blood Pressure 126/88 O2 Sat by Pulse 98 Oximetry ED Medical Decision Making - Lab Data Result diagrams: 05/12/17 10:36 05/12/17 10:36 - EKG Data -: EKG Interpreted by Ma EKG shows normal: sinus rhythm Rate: tachycardia - EKG Data Interpretation: no acute changes - Radiology Data Radiology results: report reviewed Referring Physician: ED DOC Patient Name: SUN JONAS Date of : 1985 Sex: Female Report Date: 2017-05-12 Report Status: Finalized Findings [facility] [address] [place] [address] XRay Report Signed Patient: SUN JONAS MR#: [id number] : 1985 Acct:[id number] Age/Sex: 31 / F ADM Date: 05/12/17 Loc: ED Attending Dr: Ordering Physician: CYNDI CALVERT MD Date of Service: 05/12/17 Procedure(s): XR chest routine 2V Accession Number(s): [id number] cc: ED MD NEHAL Fluoro Time In Minutes: ROUTINE CHEST, TWO VIEWS: HISTORY: Shortness of breath. Compared to 03/27/17. Minimal airspace opacity at has developed in the lingula. This may represent segmental atelectasis or early infiltrate. Please correlate with the patient's clinical presentation. The remainder of the lungs are clear. No pleural effusion or pneumothorax. Normal heart and mediastinal structures. Normal bony thorax. IMPRESSION: Questionable lingular opacity, see above. Transcribed By: TTR Dictated By: ADELINA BAILEY JR, MD Electronically Authenticated By: ADELINA BAILEY JR, MD Signed Date/Time: 05/12/17 1112 DD/ 1111 TD/TT: 05/12/17 1112 - Medical Decision Making Discussed with Dr. Aleman, I informed him of the patient, he agreed to admit the patient to his service. Critical care time in (mins) excluding proc time.: 0 Critical care attestation.: If time is entered above; I have spent that time in minutes in the direct care of this critically ill patient, excluding procedure time. ED Disposition Clinical Impression: Neutropenia, HIV (human immunodeficiency virus infection), Pneumonia Disposition: DC-09 OP ADMIT IP TO THIS HOSP Is pt being admited?: Yes Condition: Stable Instructions: Bacterial Pneumonia (ED) Referrals: PRIMARY CARE, [Primary Care Provider] - 3-5 Days
[2017-05-12] MEDS ORDERED: ZOFRAN ONE (19:17)
[2017-05-12] MEDS ORDERED: NACL 0.9% 1000 ML 1,000 ML ONE (20:32)
--- NOTE | 2017-05-12 23:53 | Event Note ---
Date: 05/12/17 See dictated H/p in reports CAP
[2017-05-13] MEDS ORDERED: TYLENOL PO PRN ×3 (01:58→02:24)
[2017-05-13] MEDS ORDERED: DULCOLAX PR PRN ×2 (02:14→02:24)
[2017-05-13] MEDS ORDERED: MILK OF MAGNESIA PO PRN ×2 (02:14→02:24)
[2017-05-13] MEDS ORDERED: DUONEB *Not for PRN Use IH (02:16)
[2017-05-13] MEDS ORDERED: K-DUR PO ONE (02:22)
[2017-05-13] MEDS ORDERED: ZOFRAN IV PRN (02:24)
[2017-05-13] MEDS ORDERED: D5NS 1,000 ML IV SCH (03:00)
[2017-05-13] MEDS: ROBITUSSIN PO PRN ×2 (06:57→22:18)
--- NOTE | 2017-05-13 07:38 | History and Physical Report ---
CHIEF COMPLAINT: Shortness of breath. ____ for one day. HISTORY OF PRESENT ILLNESS: A 31-year-old female with a history of HIV, comes in for fever, shortness of breath, and cough for 3 days. Nausea present. No vomiting. Feels ____. Cough productive with slightly yellow sputum. Time duration 3 days. No exacerbating or relieving factors. PAST MEDICAL HISTORY: Significant for HIV. PAST SURGICAL HISTORY: None. SOCIAL HISTORY: Does not smoke. Alcohol and marijuana on a regular basis. FAMILY HISTORY: Hypertension. CURRENT MEDICATIONS: Lantus, ____ Percocet 5/325 q.6 hours p.r.n. REVIEW OF SYSTEMS: Significant for fever, chills and cough for 3 days, associated with nausea. Otherwise, 14-point review of systems negative. PHYSICAL EXAMINATION: GENERAL: Young female, cooperative during examination. VITAL SIGNS: Temperature was 99.3, pulse is 111 to 154, sats are 98%, respiratory rate is 21, and blood pressure 116/78. HEENT: Unremarkable. Pupils are equal and reactive. NECK: Supple, no lymphadenopathy, no thyromegaly. LUNGS: Clear to auscultation and percussion. Scattered rhonchi bilaterally. CARDIOVASCULAR: S1, S2 heard. No gallop, no murmur, no rub. Apical impulse in left fifth intercostal space and midclavicular line. ABDOMEN: Soft and benign. No hepatosplenomegaly, no guarding, no rigidity. Hernial orifices are normal. EXTREMITIES: Good pedal pulses. No pedal edema. CENTRAL NERVOUS SYSTEM: Alert and oriented x 4, nonfocal exam. SKIN: Normal. LABORATORY DATA: Chest x-ray shows lingular opacity. Labs are significant for white count of 3000, H of 8.8 and 27.9, platelet count is 155,000. Potassium was 3.3. Sodium is 136, calcium is 8.3. ASSESSMENT AND PLAN: 1. Community-acquired pneumonia. The patient initiated on IV Levaquin 750 q.24 hours. 2. HIV, continue antiretrovirals. No antiretrovirals on the chart. 3. Hypokalemia, supplemented. 4. Hyponatremia, mild. Should be corrected with IV fluids. 5. Hypocalcemia, mild, ____ with calcium supplement. 5. Anemia secondary to HIV. Iron studies ordered. 6. Deep venous thrombosis prophylaxis, Lovenox 40 mg subcutaneous daily. [facility]# [id number] MANNY/ANDRÉS
--- NOTE | 2017-05-13 08:17 | Progress Note ---
Assessment and Plan - Pneumonia from possible gram-positive organisms Follow-up with blood culture and sputum culture results Continue patient on IV antibiotics Oxygen nasal cannula. Pulse oximetry Bronchodilators IV hydration A pneumonia vaccine - HIV Continue the patient on a present antiretroviral medications - Anemia of chronic disease Anemia work up that includes iron, TIBC, B12, and folic acid. stool for Hemoccults Type and screen 2 units of blood and transfuse each over 4 hours -Electrolytes balance with hypokalemia, hyponatremia, hypocalcemia We'll supplement. Recheck levels - DVT and GI prophylaxis Lovenox and Pepcid Subjective Date of service: 05/13/17 Principal diagnosis: pneumonia Interval history: Patient seen and examined. Denies any fever, shortness of breath. No nausea or vomiting. Discussed with nursing staff. Reviewed laboratory and radiological data Objective - Exam Narrative Exam: Constitutional: Well-nourished well-developed. In no distress Head: Normocephalic atraumatic Eyes: Pupils are equal round and reactive to light. Conjunctiva palor Nose: No enlarged turbinates, no septal deviation. Mouth: Moist mucous membranes. Neck: Supple no thyromegaly. No bruit. No JVD Heart: Regular rate and rhythm, S1-S2 abnormal. No rubs murmurs or gallop Lungs: Clear to auscultation bilaterally no rales or rhonchi Abdomen: Soft, nontender. Bowel sound are present. Extremities: No edema no cyanosis and no clubbing. Neuro: Alert oriented Oriented x3. No focal sensory or motor deficit. Skin: No rashes no hyperemic spots Psychiatry: Euthymic. Calm. - Constitutional Vitals: Vital Signs - 12hr 05/12/17 05/12/17 05/12/17 20:21 21:01 22:00 Temperature 99.3 F Pulse Rate 111 H 131 H Respiratory 23 20 21 Rate Blood Pressure 123/90 134/84 O2 Sat by Pulse 100 100 100 Oximetry 05/12/17 23:58 Temperature 99.2 F Pulse Rate 113 H Respiratory 16 Rate Blood Pressure 117/81 O2 Sat by Pulse 100 Oximetry - Labs CBC & Chem 7: 05/13/17 10:33 05/13/17 10:33 Labs: Abnormal lab results 05/12/17 05/12/17 05/13/17 Range/Units 10:36 10:36 03:42 WBC 3.0 L (4.5-11.0) K/mm3 RBC 3.47 L (3.65-5.03) M/mm3 Hgb 8.8 L (10.1-14.3) gm/dl Hct 27.9 L (30.3-42.9) % MCH 25 L (28-32) pg RDW 16.5 H (13.2-15.2) % Lymph # 0.4 L (1.2-5.4) K/mm3 Seg Neutrophils % 80.9 H (40.0-70.0) % Sodium 136 L (137-145) mmol/L Potassium 3.3 L (3.6-5.0) mmol/L Chloride 95.7 L (98-107) mmol/L Creatinine 0.5 L (0.7-1.2) mg/dL Hemoglobin A1c > 20.1 H (4-6) % Calcium 8.3 L (8.4-10.2) mg/dL
[2017-05-13] MEDS: PEPCID PO SCH ×2 (09:12→22:18)
[2017-05-13] MEDS: LEVAQUIN 750MG/150ML 750 MG/150 ML BAG IV SCH (09:13)
[2017-05-13 11:06] LABS: Hematocrit 21.9 % (30.3-42.9); Mean Corpuscular HGB Conc 32 % (30-34); Mean Corpuscular Volume 81 fl (79-97); Platelet Count 127 K/mm3 (140-440); Red Blood Count 2.72 M/mm3 (3.65-5.03)
[2017-05-13 11:15] LABS: Mean Corpuscular Hemoglobin 26 pg (28-32)
[2017-05-13 11:24] LABS: BUN/Creatinine Ratio 12; Blood Urea Nitrogen 7 mg/dL (7-17); Calcium 7.2 mg/dL (8.4-10.2); Hemolysis Index 5
[2017-05-13 11:57] LABS: Anisocytosis 2+; Band Neutrophils # (Manual) 0.1 K/mm3; Basophils % (Manual) 0 % (0.0-1.8); Eosinophils % (Manual) 0 % (0.0-4.3); Hypochromasia 1+; Macrocytosis Few; Platelet Estimate Consistent w Auto; Total Cells Counted 100
[2017-05-13] MEDS ORDERED: NACL 0.9% 500 ML 500 ML IV ONE (14:00)
[2017-05-13] MEDS: LOVENOX SUB-Q SCH (22:18)
[2017-05-13] MEDS: DILAUDID IV PRN (22:24)
[2017-05-14 02:37] LABS: Iron 20 ug/dL (37-170); Total Iron Binding Capacity 185 mcg/dL (250-450)
[2017-05-14 03:07] LABS: Hematocrit 27.5 % (30.3-42.9); Hemoglobin 8.9 gm/dl (10.1-14.3); Mean Corpuscular HGB Conc 32 % (30-34); Mean Corpuscular Hemoglobin 26 pg (28-32); Mean Corpuscular Volume 82 fl (79-97); Platelet Count 141 K/mm3 (140-440); Red Blood Count 3.38 M/mm3 (3.65-5.03)
[2017-05-14 03:33] LABS: Alanine Aminotransferase 11 units/L (7-56); Albumin 2.9 g/dL (3.9-5); BUN/Creatinine Ratio 15; Blood Urea Nitrogen 6 mg/dL (7-17); Calcium 7.8 mg/dL (8.4-10.2); Hemolysis Index 0
[2017-05-14 04:48] LABS: Band Neutrophils # (Manual) 0.8 K/mm3; Basophils % (Manual) 0 % (0.0-1.8); Eosinophils % (Manual) 0 % (0.0-4.3); Total Cells Counted 100
[2017-05-14 04:49] LABS: Anisocytosis 2+
[2017-05-14 04:50] LABS: Platelet Estimate Consistent w Auto; Tear Drop Cells 1+
[2017-05-14] MEDS: ZOFRAN IV PRN (07:59)
[2017-05-14] MEDS: DILAUDID IV PRN ×2 (08:03→13:58)
[2017-05-14] MEDS: LEVAQUIN 750MG/150ML 750 MG/150 ML BAG IV SCH (09:44)
[2017-05-14] MEDS: PEPCID PO SCH ×2 (10:07→23:08)
--- NOTE | 2017-05-14 11:15 | Progress Note ---
Assessment and Plan - Pneumonia from possible gram-positive organisms Negative blood culture and sputum culture results so far Continue patient on IV antibiotics Oxygen nasal cannula. Pulse oximetry Bronchodilators IV hydration A pneumonia vaccine - HIV Continue the patient on a present antiretroviral medications - Anemia of chronic disease Anemia work up that includes iron, TIBC, B12, and folic acid. stool for Hemoccults Type and screen 2 units of blood and transfuse each over 4 hours -Electrolytes balance with hypokalemia, hyponatremia, hypocalcemia We'll supplement. Recheck levels - DVT and GI prophylaxis Lovenox and Pepcid Subjective Date of service: 05/14/17 Principal diagnosis: pneumonia Interval history: Patient seen and examined. Denies any fever, shortness of breath improving. No nausea or vomiting. Discussed with nursing staff. Reviewed laboratory and radiological data Objective - Exam Narrative Exam: Constitutional: Well-nourished well-developed. In no distress Head: Normocephalic atraumatic Eyes: Pupils are equal round and reactive to light. Conjunctiva palor Nose: No enlarged turbinates, no septal deviation. Mouth: Moist mucous membranes. Neck: Supple no thyromegaly. No bruit. No JVD Heart: Regular rate and rhythm, S1-S2 abnormal. No rubs murmurs or gallop Lungs: Decreased air movement bilaterally with few rales Abdomen: Soft, nontender. Bowel sound are present. Extremities: No edema no cyanosis and no clubbing. Neuro: Alert oriented Oriented x3. No focal sensory or motor deficit. Skin: No rashes no hyperemic spots Psychiatry: Euthymic. Calm. - Constitutional Vitals: Vital Signs - 12hr 05/13/17 05/14/17 05/14/17 23:50 04:08 04:38 Temperature 98.7 F 98.2 F 98.6 F Pulse Rate 100 H 95 H Respiratory 16 20 20 Rate Blood Pressure 103/74 111/80 125/93 O2 Sat by Pulse 99 100 Oximetry 05/14/17 05/14/17 05/14/17 05:08 05:38 06:01 Temperature 98.6 F 98.4 F 98.4 F Pulse Rate 91 H 93 H 91 H Respiratory 20 20 20 Rate Blood Pressure 112/72 118/78 104/71 O2 Sat by Pulse 99 100 98 Oximetry 05/14/17 07:04 Temperature 99.2 F Pulse Rate 95 H Respiratory 20 Rate Blood Pressure 124/93 O2 Sat by Pulse 100 Oximetry - Labs CBC & Chem 7: 05/14/17 02:45 05/14/17 02:45 Labs: Abnormal lab results 05/13/17 05/13/17 05/13/17 Range/Units 10:33 10:33 13:31 WBC 1.9 L* (4.5-11.0) K/mm3 RBC 2.72 L (3.65-5.03) M/mm3 Hgb 7.0 L (10.1-14.3) gm/dl Hct 21.9 L D (30.3-42.9) % MCH 26 L (28-32) pg RDW 16.0 H (13.2-15.2) % Plt Count 127 L (140-440) K/mm3 Seg Neuts % (Manual) 83.0 H (40.0-70.0) % Lymphocytes % (Manual) 6.0 L (13.4-35.0) % Seg Neutrophils # Man 1.6 L (1.8-7.7) K/mm3 Lymphocytes # (Manual) 0.1 L (1.2-5.4) K/mm3 BUN (7-17) mg/dL Creatinine 0.6 L (0.7-1.2) mg/dL Calcium 7.2 L (8.4-10.2) mg/dL Iron (37-170) ug/dL TIBC (250-450) mcg/dL Albumin (3.9-5) g/dL Crossmatch See Detail 05/13/17 05/14/17 05/14/17 Range/Units 23:44 02:45 02:45 WBC 1.9 L* (4.5-11.0) K/mm3 RBC 3.38 L (3.65-5.03) M/mm3 Hgb 8.9 L (10.1-14.3) gm/dl Hct 27.5 L (30.3-42.9) % MCH 26 L (28-32) pg RDW 16.0 H (13.2-15.2) % Plt Count (140-440) K/mm3 Seg Neuts % (Manual) (40.0-70.0) % Lymphocytes % (Manual) 4.0 L (13.4-35.0) % Seg Neutrophils # Man 1.0 L (1.8-7.7) K/mm3 Lymphocytes # (Manual) 0.1 L (1.2-5.4) K/mm3 BUN 6 L (7-17) mg/dL Creatinine 0.4 L (0.7-1.2) mg/dL Calcium 7.8 L (8.4-10.2) mg/dL Iron 20 L (37-170) ug/dL TIBC 185 L (250-450) mcg/dL Albumin 2.9 L (3.9-5) g/dL Crossmatch
[2017-05-14] MEDS: PERCOCET 5/325 PO PRN (19:25)
[2017-05-14] MEDS: ROBITUSSIN PO PRN (19:26)
[2017-05-14] MEDS: LOVENOX SUB-Q SCH (23:09)
[2017-05-14] MEDS: MORPHINE IV PRN (23:15)
[2017-05-15] MEDS: MORPHINE IV PRN (07:33)
--- NOTE | 2017-05-15 07:36 | Progress Note ---
Assessment and Plan - Pneumonia from possible gram-positive organisms Negative blood culture and sputum culture results so far Continue patient on IV antibiotics Oxygen nasal cannula. Pulse oximetry Bronchodilators IV hydration A pneumonia vaccine - HIV Continue the patient on a present antiretroviral medications. Per IDs discretion. Patient has been on antiretroviral in the past. However stopped using them in January 2017 when she lost her insurance - Oropharyngeal candidiasis Commence patient on Diflucan po, Nysttin switch and swallow. - Anemia of chronic disease Anemia work up that includes iron, TIBC, B12, and folic acid. stool for Hemoccults Type and screen 2 units of blood and transfuse each over 4 hours -Electrolytes balance with hypokalemia, hyponatremia, hypocalcemia We'll supplement. Recheck levels - DVT and GI prophylaxis Lovenox and Pepcid Subjective Date of service: 05/15/17 Principal diagnosis: pneumonia Interval history: Patient seen and examined. Denies any fever, shortness of breath improving. Feeling better. No nausea or vomiting. Discussed with nursing staff. Reviewed laboratory and radiological data Objective - Constitutional Vitals: Vital Signs - 12hr 05/14/17 05/15/17 05/15/17 22:00 00:14 03:50 Temperature 98.2 F 97.8 F Pulse Rate 99 H 97 H Respiratory 18 16 16 Rate Blood Pressure 120/85 121/87 O2 Sat by Pulse 96 98 Oximetry 05/15/17 07:13 Temperature 99.0 F Pulse Rate 105 H Respiratory 18 Rate Blood Pressure 145/94 O2 Sat by Pulse 98 Oximetry General appearance: Present: no acute distress, well-nourished - EENT Eyes: PERRL, EOM intact Ears: bilateral: normal - Neck Neck: supple, normal ROM - Respiratory Respiratory effort: normal Respiratory: bilateral: diminished - Breasts Breasts: normal - Cardiovascular Rhythm: regular Heart Sounds: Present: S1 & S2. Absent: gallop, rub Extremities: pulses intact, No edema, normal color, Full ROM - Gastrointestinal General gastrointestinal: Present: soft, non-tender, non-distended, normal bowel sounds - Genitourinary Female genitourinary: normal - Integumentary Integumentary: clear, warm, dry - Musculoskeletal Musculoskeletal: 1, strength equal bilaterally - Neurologic Neurologic: moves all extremities - Psychiatric Psychiatric: memory intact, appropriate mood/affect, intact judgment & insight - Labs CBC & Chem 7: 05/15/17 08:57 05/15/17 08:57
[2017-05-15 09:28] LABS: Hematocrit 31.6 % (30.3-42.9); Hemoglobin 10.3 gm/dl (10.1-14.3); Mean Corpuscular HGB Conc 33 % (30-34); Mean Corpuscular Hemoglobin 26 pg (28-32); Mean Corpuscular Volume 81 fl (79-97); Platelet Count 143 K/mm3 (140-440); Red Blood Count 3.93 M/mm3 (3.65-5.03); Red Cell Distribution Width 15.4 % (13.2-15.2)
[2017-05-15 09:40] LABS: BUN/Creatinine Ratio 14; Blood Urea Nitrogen 7 mg/dL (7-17); Calcium 7.8 mg/dL (8.4-10.2); Hemolysis Index 6
[2017-05-15] MEDS: PEPCID PO SCH ×2 (10:09→21:06)
[2017-05-15] MEDS: LEVAQUIN 750MG/150ML 750 MG/150 ML BAG IV SCH (10:18)
[2017-05-15] MEDS: ROBITUSSIN PO PRN ×3 (10:19→23:09)
[2017-05-15] MEDS: DILAUDID IV PRN ×3 (10:20→23:00)
[2017-05-15 10:22] LABS: Total Cells Counted 100
[2017-05-15 10:23] LABS: Basophils % (Manual) 0 % (0.0-1.8)
[2017-05-15 10:28] LABS: Platelet Estimate Consistent w Auto; Tear Drop Cells 1+
[2017-05-15] MEDS: DIFLUCAN PO SCH (11:16)
[2017-05-15] MEDS: MAGIC MOUTHWASH PO SCH ×3 (12:14→21:07)
[2017-05-15] MEDS: PERCOCET 5/325 PO PRN ×2 (13:59→21:06)
[2017-05-15] MEDS: ZOFRAN IV PRN ×2 (14:00→23:09)
[2017-05-15] MEDS ORDERED: NYSTOP TP SCH (14:00)
[2017-05-15] MEDS: LOVENOX SUB-Q SCH (21:06)
[2017-05-16] MEDS ORDERED: LOPRESSOR PO ONE (01:07)
[2017-05-16] MEDS: DILAUDID IV PRN ×4 (03:17→19:02)
[2017-05-16] MEDS: PERCOCET 5/325 PO PRN ×2 (05:54→11:59)
[2017-05-16 06:00] LABS: Hematocrit 31.1 % (30.3-42.9); Hemoglobin 10.5 gm/dl (10.1-14.3); Mean Corpuscular HGB Conc 34 % (30-34); Mean Corpuscular Hemoglobin 27 pg (28-32); Mean Corpuscular Volume 81 fl (79-97); Platelet Count 153 K/mm3 (140-440); Red Blood Count 3.86 M/mm3 (3.65-5.03); Red Cell Distribution Width 15.3 % (13.2-15.2)
[2017-05-16 06:26] LABS: Alanine Aminotransferase 11 units/L (7-56); Albumin 2.7 g/dL (3.9-5); BUN/Creatinine Ratio 15; Blood Urea Nitrogen 9 mg/dL (7-17); Hemolysis Index 4
--- NOTE | 2017-05-16 07:45 | Progress Note ---
Assessment and Plan - Pneumonia from possible gram-positive organisms Negative blood culture and sputum culture results so far Continue patient on IV antibiotics Oxygen nasal cannula. Pulse oximetry Bronchodilators IV hydration A pneumonia vaccine - HIV CD4 29, Viral Load of 911,169 and pansensitive genotype as of 05/13/17 [address]Azithromyc[address] nd Bactrim for MAC and PJP PPx per ID. To f/u onID on out pt for reinitiation of Antiretroviral medications. Patient has been on antiretroviral in the past. However stopped using them in January 2017 when she lost her insurance - Oropharyngeal candidiasis Commence patient on Diflucan po, Nystatin switch and swallow. - Anemia of chronic disease Anemia work up that includes iron, TIBC, B12, and folic acid. stool for Hemoccults Type and screen 2 units of blood and transfuse each over 4 hours -Electrolytes balance with hypokalemia, hyponatremia, hypocalcemia We'll supplement. Recheck levels - DVT and GI prophylaxis Lovenox and Pepcid Subjective Date of service: 05/16/17 Principal diagnosis: pneumonia Interval history: Patient seen and examined. Denies any fever, shortness of breath improving. Feeling better. No nausea or vomiting. still has dysphagia. Discussed with nursing staff and ID specialists. Reviewed laboratory and radiological data Objective - Exam Narrative Exam: Constitutional: Well-nourished well-developed. In no distress Head: Normocephalic atraumatic Eyes: Pupils are equal round and reactive to light. Conjunctiva palor Nose: No enlarged turbinates, no septal deviation. Mouth: Moist mucous membranes. has oral thrush. Neck: Supple no thyromegaly. No bruit. No JVD Heart: Regular rate and rhythm, S1-S2 abnormal. No rubs murmurs or gallop Lungs: Decreased air movement bilaterally with few rales Abdomen: Soft, nontender. Bowel sound are present. Extremities: No edema no cyanosis and no clubbing. Neuro: Alert oriented Oriented x3. No focal sensory or motor deficit. Skin: No rashes no hyperemic spots Psychiatry: Euthymic. Calm. - Constitutional Vitals: Vital Signs - 12hr 05/15/17 05/15/17 05/15/17 21:13 23:00 23:11 Temperature 100.1 F H 99.8 F H Pulse Rate Pulse Rate [ 113 H From Monitor] Respiratory 18 Rate Blood Pressure O2 Sat by Pulse Oximetry 05/15/17 05/16/17 05/16/17 23:40 01:30 01:32 Temperature 99.2 F Pulse Rate 115 H 129 H 123 H Pulse Rate [ From Monitor] Respiratory 20 Rate Blood Pressure 110/69 110/78 110/78 O2 Sat by Pulse 95 98 Oximetry 05/16/17 04:48 Temperature 100.4 F H Pulse Rate 114 H Pulse Rate [ From Monitor] Respiratory 20 Rate Blood Pressure 105/61 O2 Sat by Pulse 98 Oximetry - Labs CBC & Chem 7: 05/16/17 05:37 05/16/17 05:37 Labs: Abnormal lab results 05/15/17 05/15/17 05/16/17 Range/Units 08:57 08:57 05:37 WBC 1.8 L* 2.1 L (4.5-11.0) K/mm3 MCH 26 L 27 L (28-32) pg RDW 15.4 H 15.3 H (13.2-15.2) % Seg Neuts % (Manual) 83.0 H (40.0-70.0) % Lymphocytes % (Manual) 12.0 L (13.4-35.0) % Seg Neutrophils # Man 1.5 L (1.8-7.7) K/mm3 Lymphocytes # (Manual) 0.2 L (1.2-5.4) K/mm3 Sodium (137-145) mmol/L Potassium 3.5 L (3.6-5.0) mmol/L Creatinine 0.5 L (0.7-1.2) mg/dL Glucose 129 H (65-100) mg/dL Calcium 7.8 L (8.4-10.2) mg/dL Albumin (3.9-5) g/dL 05/16/17 Range/Units 05:37 WBC (4.5-11.0) K/mm3 MCH (28-32) pg RDW (13.2-15.2) % Seg Neuts % (Manual) (40.0-70.0) % Lymphocytes % (Manual) (13.4-35.0) % Seg Neutrophils # Man (1.8-7.7) K/mm3 Lymphocytes # (Manual) (1.2-5.4) K/mm3 Sodium 135 L (137-145) mmol/L Potassium (3.6-5.0) mmol/L Creatinine 0.6 L (0.7-1.2) mg/dL Glucose (65-100) mg/dL Calcium 8.0 L (8.4-10.2) mg/dL Albumin 2.7 L (3.9-5) g/dL
[2017-05-16] MEDS: MAGIC MOUTHWASH PO SCH ×3 (08:35→20:53)
[2017-05-16] MEDS: LEVAQUIN 750MG/150ML 750 MG/150 ML BAG IV SCH (09:28)
[2017-05-16] MEDS: DIFLUCAN PO SCH (09:29)
[2017-05-16] MEDS: PEPCID PO SCH ×2 (09:29→21:08)
[2017-05-16 10:15] LABS: Band Neutrophils # (Manual) 0.2 K/mm3; Basophils % (Manual) 0 % (0.0-1.8); Eosinophils % (Manual) 0 % (0.0-4.3); Total Cells Counted 100
[2017-05-16 10:16] LABS: RBC Morphology Normal
--- NOTE | 2017-05-16 13:28 | Consultation ---
History of Present Illness - Reason for Consult Consult date: 05/16/17 HIV/pneumonia Requesting physician: EZRA MCKINNEY - History of Present Illness 31 years old female with history of HIV infection diagnosed in 2012, recently moved from [place], [place] to [place]. Patient has no established a new HIV office. Patient used to be on tivicay, viread and ? . Last time she took her ART was Jan 2017. She lost her medical insurance. She is well known to ID since she was since during recent admission in Mar 2017 for a painful rash on her buttocks area bilaterally. 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 She was treated with IV acyclovir and vancomycin. She was discharged on valtrex 1 g PO q12h and ceftin 500 mg bid total 10 days. Unfortunately, she was re-admitted on 05/12/17 due to 2 week history of productive cough. She reports sore throat and runny nose 2 weeks ago. Since then she has been coughing up green sputum. She also developed sweats, chills and body aches last week. She has been also c/o persistent sore throat and odynophagia. In the emergency room, initial temperature was 99.1, heart rate 147, respirations 18, blood pressure 126/82. Initial white count 3 then 1.3, hemoglobin 8.8, platelets 165. Creatinine 0.5. Urinalysis is negative. Microbiology: Blood cultures: 03/27 neg 05/12 ngtd Urine cultures: 03/27 <10K Influenza 05/12 neg Current Antimicrobials: Metronidazole 03/27 Vancomycin 03/27 Past History Past Medical History: HIV/AIDS, other (neutropenia) Past Surgical History: No surgical history Social history: no significant social history Family history: no significant family history Medications and Allergies Allergies Allergy/AdvReac Type Severity Reaction Status Date / Time amoxicillin Allergy Rash Verified 03/27/17 09:02 Home Medications Medication Instructions Recorded Confirmed Last Taken Type guaiFENesin [Mucinex] 600 mg PO DAILY 05/12/17 05/12/17 05/11/17 History Active Meds: Active Medications Acetaminophen (Tylenol) 650 mg PO Q4H PRN PRN Reason: Pain MILD(1-3)/Fever >100.5/SNYDER Last Admin: 05/13/17 06:58 Dose: 650 mg Albuterol (Proventil) 2.5 mg IH Q4HRT PRN PRN Reason: Wheezing Bisacodyl (Dulcolax) 10 mg NM QDAY PRN PRN Reason: Constipation unrelieved by MOM Enoxaparin Sodium (Lovenox) 40 mg SUB-Q QDAY@2200 [facility] Last Admin: 05/15/17 21:06 Dose: 40 mg Famotidine (Pepcid) 20 mg PO BID [facility] Last Admin: 05/16/17 09:29 Dose: 20 mg Fluconazole (Diflucan) 200 mg PO QDAY [facility] Last Admin: 05/16/17 09:29 Dose: 200 mg Guaifenesin (Robitussin) 200 mg PO Q4H PRN PRN Reason: Cough Last Admin: 05/15/17 23:09 Dose: 200 mg Hydromorphone HCl (Dilaudid) 0.5 mg IV Q3H PRN PRN Reason: Pain , Severe (7-10) Last Admin: 05/16/17 06:46 Dose: 0.5 mg Levofloxacin/Dextrose (Levaquin 750mg/150ml) 750 mg in 150 mls @ 100 mls/hr IV Q24HR [facility] PRN Reason: Protocol Last Admin: 05/16/17 09:28 Dose: 100 mls/hr Lidocaine HCl (Magic Mouthwash) 15 ml PO TID [facility] Last Admin: 05/16/17 08:35 Dose: 15 ml Magnesium Hydroxide (Milk Of Magnesia) 30 ml PO Q4H PRN PRN Reason: Constipation Morphine Sulfate (Morphine) 2 mg IV Q4H PRN PRN Reason: Pain, Moderate (4-6) Last Admin: 05/15/17 07:33 Dose: 2 mg Ondansetron HCl (Zofran) 4 mg IV Q8H PRN PRN Reason: N/V unrelieved by Reglan Last Admin: 05/15/17 23:09 Dose: 4 mg Oxycodone/Acetaminophen (Percocet 5/325) 1 tab PO Q6H PRN PRN Reason: Pain, Moderate (4-6) Last Admin: 05/16/17 11:59 Dose: 1 tab Review of Systems All systems: negative (as per HPI rest ros neg. No chest pain. No N/V?D>) Physical Examination - Physical Exam Narrative exam: General appearance: Alert in NAD, conversant Eyes: anicteric sclerae, moist conjunctivae; no lid-lag; PERRLA HENT: Atraumatic; oropharynx c+shallow ulcers with mild thrush Lungs: nelson crackles, with normal respiratory effort and no intercostal retractions CV: RRR, no murmurs Abdomen: Soft, non-tender; no masses or hepatosplenomegaly Extremities: No peripheral edema or extremity lymphadenopathy Skin: Normal temperature, turgor and texture; no rash, ulcers or subcutaneous nodules Psych: Appropriate affect, alert and oriented to person, place and time. Neuro: alert and oriented x 3. Moving all extermities Lines: No CVL / PICC - Constitutional Vitals: Vital Signs Temp Pulse Resp BP Pulse Ox 98.0 F 101 H 20 108/76 97 05/16/17 08:50 05/16/17 08:50 05/16/17 08:50 05/16/17 08:50 05/16/17 08:50 Temperature -Last 24 Hours Temperature 98.0 F Temperature 100.4 F Temperature 99.2 F Temperature 99.8 F Temperature 100.1 F Temperature 98.8 F Temperature 97.9 F Results - Labs CBC & Chem 7: 05/16/17 05:37 05/16/17 05:37 Labs: Abnormal lab results 05/16/17 05/16/17 Range/Units 05:37 05:37 WBC 2.1 L (4.5-11.0) K/mm3 MCH 27 L (28-32) pg RDW 15.3 H (13.2-15.2) % Seg Neuts % (Manual) 80.0 H (40.0-70.0) % Lymphocytes % (Manual) 8.0 L (13.4-35.0) % Seg Neutrophils # Man 1.7 L (1.8-7.7) K/mm3 Lymphocytes # (Manual) 0.2 L (1.2-5.4) K/mm3 Sodium 135 L (137-145) mmol/L Creatinine 0.6 L (0.7-1.2) mg/dL Calcium 8.0 L (8.4-10.2) mg/dL Albumin 2.7 L (3.9-5) g/dL Assessment and Plan Assessment: 1) Sepsis: Present on admission, manifested by low grade fever, tachycardia, leukopenia. Etiology most likely pneumonia. 2) Presumed lingular pneumonia: post-influenza pneumonia versus oppotunistic pneumonia ? PJP -CXR lingular pneumonia -Influenza antigen neg 3) HIV infection diagnosed in 2012, recently moved from [place], [place] to [place]. Patient has no established a new HIV office. Patient used to be on tivicay, viread and ?. Last time she took her ART was Jan 2017. She lost her medical insurance. -CD4=29 / VL 911,[id number] on 05/13/17 / genotype pansensitive 4) Neutropenia/thrombocytopenia: viral infection +/- HIV +/- MAC/cryptococcosis 5) Recent primary HSV-2 rash +/- mild cellulitis - better. 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 She was treated with IV acyclovir and vancomycin. Resolved 6) Presumed oral candidiasis Plan: -follow-up blood cultures -check AFB-blood culture and cryptococcal serum antigen -repeat CXR -add bactrim DS 1 tab q day for PJP prophylaxis - doubt PJP pneumonia in view of upper resp symptoms -add azithromycin 1200 mg po qweek for MAC prophylaxis -continue fluconazole total 14 days -continue levaquin total 7 days -needs HIV clinic f/u in 1-2 weeks to initiate ART -monitor fever if better ok to d/c on bactrim DS 1 tab q day for PJP prophylaxis , azithromycin 1200 mg po qweek for MAC prophylaxix, fluconazole 200 g po qday total 14 days and levaquin 750 mg po qday total 7 days Thanks Natalia Aguilera
[2017-05-16] MEDS: ROBITUSSIN PO PRN (19:10)
[2017-05-16] MEDS ORDERED: ZITHROMAX PO SCH (19:30)
[2017-05-16] MEDS: BACTRIM DS PO SCH (20:52)
[2017-05-16] MEDS: LOVENOX SUB-Q SCH (21:08)
[2017-05-16] MEDS: ZOFRAN IV PRN (22:32)
[2017-05-17 03:32] LABS: Hematocrit 32.1 % (30.3-42.9); Hemoglobin 10.6 gm/dl (10.1-14.3); Mean Corpuscular HGB Conc 33 % (30-34); Mean Corpuscular Hemoglobin 27 pg (28-32); Mean Corpuscular Volume 81 fl (79-97); Platelet Count 139 K/mm3 (140-440); Red Blood Count 3.96 M/mm3 (3.65-5.03); Red Cell Distribution Width 15.4 % (13.2-15.2)
[2017-05-17 03:50] LABS: Alanine Aminotransferase 12 units/L (7-56); BUN/Creatinine Ratio 20; Blood Urea Nitrogen 10 mg/dL (7-17); Calcium 8.2 mg/dL (8.4-10.2); Hemolysis Index 4
[2017-05-17 04:27] LABS: Anisocytosis 1+; Band Neutrophils # (Manual) 0.1 K/mm3; Basophils % (Manual) 0 % (0.0-1.8); Eosinophils % (Manual) 0 % (0.0-4.3); Monocytes % (Manual) 0 % (0.0-7.3); Platelet Estimate Consistent w Auto; Total Cells Counted 25
[2017-05-17] MEDS: PERCOCET 5/325 PO PRN (05:19)
[2017-05-17] MEDS: ROBITUSSIN PO PRN ×5 (05:20→22:14)
--- NOTE | 2017-05-17 06:06 | XRay Report ---
FINAL REPORT EXAM: XR CHEST ROUTINE 2V HISTORY: eval for progressive pna TECHNIQUE: PA and lateral chest radiographs PRIORS: None provided. FINDINGS: No mediastinal shift. Cardiac silhouette is not enlarged. No pneumothorax or effusion. Ill-defined posterior left lower lung opacity. No acute skeletal or right lung finding. IMPRESSION: Ill-defined posterior left lower lung opacity. No pneumothorax or effusion.
[2017-05-17] MEDS: ZOFRAN IV PRN ×2 (08:59→22:22)
[2017-05-17] MEDS: MAGIC MOUTHWASH PO SCH ×4 (08:59→22:17)
[2017-05-17] MEDS: DILAUDID IV PRN ×4 (09:08→22:15)
--- NOTE | 2017-05-17 09:45 | Progress Note ---
Assessment and Plan Assessment: 1) Sepsis: still low grade fever, tachycardia, leukopenia. Etiology most likely pneumonia. 2) Presumed lingular pneumonia: post-influenza pneumonia versus oppotunistic pneumonia ? PJP -CXR lingular pneumonia -Influenza antigen neg -blood cultures 05/12 ngtd -repeat CXR 05/17 showed [id number] posterior LLL opacity. No pneumothorax of effusion 3) HIV infection diagnosed in 2012, recently moved from [place], [place] to [place]. Patient has no established a new HIV office. Patient used to be on tivicay, viread and ?. Last time she took her ART was Jan 2017. She lost her medical insurance. -CD4=29 / VL 911,[id number] on 05/13/17 / genotype pansensitive -cryptococcal serum antigen negative 05/17 4) Neutropenia/thrombocytopenia: Still neutropenia and thrombocytopenia. viral infection +/- HIV +/- MAC/cryptococcosis 5) Recent primary HSV-2 rash +/- mild cellulitis - better. 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 She was treated with IV acyclovir and vancomycin. Resolved 6) Presumed oral candidiasis with persistent dysphasia Plan: -consider GI medicine consult for EGD -obtain CRP -follow up AFB-blood culture -received -continue bactrim DS 1 tab q day for PJP prophylaxis - doubt PJP pneumonia in view of upper resp symptoms -continue azithromycin day 2 1200 mg po qweek for MAC prophylaxis -continue fluconazole total day 3 of 14 days -continue levaquin total 7 days -needs HIV clinic f/u in 1-2 weeks to initiate ART -monitor fever if better ok to d/c on bactrim DS 1 tab q day for PJP prophylaxis , azithromycin 1200 mg po qweek for MAC prophylaxix, fluconazole 200 g po qday total 14 days and levaquin 750 mg po qday total [address] Velazquez for your consult, will follow up [facility] for Dr. Natalia Juarez MD Infectious Diseases Specialist [facility] M [phone] O [phone] Subjective Date of service: 05/17/17 Principal diagnosis: pneumonia Interval history: I want to start my antiviral medications, Microbiology: Blood cultures: 03/27 neg 1/25 ngtd Urine cultures: 03/27 <10K Influenza 05/12 neg Current Antimicrobials: Metronidazole 03/27 Vancomycin 03/27 Objective - Exam Narrative Exam: General appearance: Alert in NAD, conversant Eyes: anicteric sclerae, moist conjunctivae; no lid-lag; PERRLA HENT: Atraumatic; oropharynx c+shallow ulcers with mild thrush Lungs: nelson crackles, with normal respiratory effort and no intercostal retractions CV: RRR, no murmurs Abdomen: Soft, non-tender; +BS x 4 Extremities: No peripheral edema or extremity lymphadenopathy Skin: Normal temperature, turgor and texture; no rash, ulcers or subcutaneous nodules Psych: Appropriate affect, calm and cooperative Neuro: alert and oriented x 3. Moving all extermities Lines: No CVL / PICC - Constitutional Vitals: Vital Signs Temp Pulse Resp BP Pulse Ox 98.8 F 95 H 18 106/73 96 05/17/17 07:49 05/17/17 07:49 05/17/17 07:49 05/17/17 07:49 05/17/17 07:49 Temperature -Last 24 Hours Temperature 98.8 F Temperature 99.6 F Temperature 99.7 F Temperature 99.0 F Temperature 98.1 F - Labs CBC & Chem 7: 05/17/17 03:00 05/17/17 03:45 Labs: Abnormal lab results 05/16/17 05/17/17 05/17/17 Range/Units 05:37 03:00 03:45 WBC 1.7 L* (4.5-11.0) K/mm3 MCH 27 L (28-32) pg RDW 15.4 H (13.2-15.2) % Plt Count 139 L (140-440) K/mm3 Seg Neuts % (Manual) 80.0 H 92.0 H (40.0-70.0) % Lymphocytes % (Manual) 8.0 L 4.0 L (13.4-35.0) % Seg Neutrophils # Man 1.7 L 1.6 L (1.8-7.7) K/mm3 Lymphocytes # (Manual) 0.2 L 0.1 L (1.2-5.4) K/mm3 Sodium 133 L (137-145) mmol/L Chloride 96.1 L (98-107) mmol/L Creatinine 0.5 L (0.7-1.2) mg/dL Calcium 8.2 L (8.4-10.2) mg/dL Albumin 3.0 L (3.9-5) g/dL
[2017-05-17] MEDS: LEVAQUIN 750MG/150ML 750 MG/150 ML BAG IV SCH (09:50)
[2017-05-17] MEDS: PEPCID PO SCH ×2 (09:51→22:17)
[2017-05-17] MEDS: DIFLUCAN PO SCH (09:51)
[2017-05-17] MEDS: PROVENTIL IH PRN ×2 (12:35→22:40)
--- NOTE | 2017-05-17 16:53 | Progress Note ---
Assessment and Plan - Patient Problems (1) Pneumonia Current Visit: Yes Status: Acute Qualifiers: Laterality: right Plan to address problem: Cont abx (2) Sepsis Current Visit: No Status: Acute Qualifiers: Sepsis type: sepsis due to unspecified organism Qualified Code(s): A41.9 - Sepsis, unspecified organism Plan to address problem: Patient has fever tachycardia Cont IV abx (3) HIV (human immunodeficiency virus infection) Current Visit: Yes Status: Chronic Plan to address problem: Anti Retrovirals as outpatient.F/u with ID clinic as outpatient (4) Neutropenia Current Visit: Yes Status: Chronic Qualifiers: Neutropenia type: unspecified Qualified Code(s): D70.9 - Neutropenia, unspecified Plan to address problem: Sec to Hiv (5) Oral candidiasis Current Visit: Yes Status: Acute Plan to address problem: Switch to IV diflucan Patient may have Esophageal candidiasis also GI consult requested (6) DVT prophylaxis Current Visit: No Status: Acute Plan to address problem: On Scd's Subjective Date of service: 05/17/17 Principal diagnosis: pneumonia Interval history: Complaints of Difficulty swallowing and sore throat Objective - Constitutional Vitals: Vital Signs - 12hr 05/17/17 05/17/17 05/17/17 07:49 10:00 11:51 Temperature 98.8 F 98.4 F Pulse Rate 95 H 104 H Pulse Rate [ Anterior Bilateral Throughout] Pulse Rate [ 106 H From Monitor] Pulse Rate [ Throughout] Respiratory 18 16 18 Rate Respiratory Rate [Anterior Bilateral Throughout] Respiratory Rate [ Throughout] Blood Pressure 106/73 114/78 O2 Sat by Pulse 96 97 Oximetry 05/17/17 12:36 Temperature Pulse Rate Pulse Rate [ 114 H Anterior Bilateral Throughout] Pulse Rate [ From Monitor] Pulse Rate [ 111 H Throughout] Respiratory Rate Respiratory 20 Rate [Anterior Bilateral Throughout] Respiratory 18 Rate [ Throughout] Blood Pressure O2 Sat by Pulse Oximetry General appearance: Present: no acute distress, well-nourished - EENT Eyes: PERRL, EOM intact ENT: hearing intact, clear oral mucosa, thrush Ears: bilateral: normal - Neck Neck: supple, normal ROM - Respiratory Respiratory effort: normal Respiratory: bilateral: CTA - Breasts Breasts: normal - Cardiovascular Rhythm: regular Heart Sounds: Present: S1 & S2. Absent: gallop, rub Extremities: pulses intact, No edema, normal color, Full ROM - Gastrointestinal General gastrointestinal: Present: soft, non-tender, non-distended, normal bowel sounds - Genitourinary Female genitourinary: normal - Integumentary Integumentary: clear, warm, dry - Musculoskeletal Musculoskeletal: 1, strength equal bilaterally - Neurologic Neurologic: moves all extremities - Psychiatric Psychiatric: memory intact, appropriate mood/affect, intact judgment & insight - Labs CBC & Chem 7: 05/17/17 03:00 05/17/17 03:45 Labs: Abnormal lab results 05/17/17 05/17/17 05/17/17 Range/Units 03:00 03:45 03:45 WBC 1.7 L* (4.5-11.0) K/mm3 MCH 27 L (28-32) pg RDW 15.4 H (13.2-15.2) % Plt Count 139 L (140-440) K/mm3 Seg Neuts % (Manual) 92.0 H (40.0-70.0) % Lymphocytes % (Manual) 4.0 L (13.4-35.0) % Seg Neutrophils # Man 1.6 L (1.8-7.7) K/mm3 Lymphocytes # (Manual) 0.1 L (1.2-5.4) K/mm3 Sodium 133 L (137-145) mmol/L Chloride 96.1 L (98-107) mmol/L Creatinine 0.5 L (0.7-1.2) mg/dL Calcium 8.2 L (8.4-10.2) mg/dL C-Reactive Protein 2.10 H (0.00-1.30) mg/dL Albumin 3.0 L (3.9-5) g/dL
[2017-05-17] MEDS: BACTRIM DS PO SCH (22:14)
[2017-05-17] MEDS: LOVENOX SUB-Q SCH (22:16)
[2017-05-18] MEDS: ROBITUSSIN PO PRN ×4 (02:47→16:38)
[2017-05-18] MEDS: DILAUDID IV PRN ×5 (02:47→21:54)
[2017-05-18] MEDS: PROVENTIL IH PRN ×3 (05:22→22:00)
[2017-05-18] MEDS: MAGIC MOUTHWASH PO SCH ×3 (08:33→16:38)
--- NOTE | 2017-05-18 09:59 | Progress Note ---
Assessment and Plan Assessment: 1) Sepsis: fever resolved, tachycardia, leukopenia. Etiology most likely pneumonia. 2) Presumed lingular pneumonia: post-influenza pneumonia versus oppotunistic pneumonia ? PJP -CXR lingular pneumonia -Influenza antigen neg -blood cultures 05/12 ngtd -repeat CXR 05/17 showed [id number] posterior LLL opacity. No pneumothorax of effusion -CRP = 2.10 3) HIV infection diagnosed in 2012, recently moved from [place], [place] to [place]. Patient has no established a new HIV office. Patient used to be on tivicay, viread and ?. Last time she took her ART was Jan 2017. She lost her medical insurance. -CD4=29 / VL 911,[id number] on 05/13/17 / genotype pansensitive -cryptococcal serum antigen negative 05/17 4) Neutropenia/thrombocytopenia: Still neutropenia and thrombocytopenia. viral infection +/- HIV +/- MAC/cryptococcosis 5) Recent primary HSV-2 rash +/- mild cellulitis - better. 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 She was treated with IV acyclovir and vancomycin. Resolved 6) Presumed oral candidiasis with persistent dysphagia Plan: -f/u GI medicine consult for EGD -follow up AFB-blood culture -received -continue bactrim DS for PJP prophylaxis - doubt PJP pneumonia in view of upper resp symptoms -continue azithromycin 1200 mg po qweek for MAC prophylaxis -continue fluconazole total day 4 of 14 days -continue levaquin day 6 total 7 days -needs HIV clinic f/u in 1-2 weeks to initiate ART -continue to monitor fever if better ok to d/c on bactrim DS 1 tab q day for PJP prophylaxis, azithromycin 1200 mg po qweek for MAC prophylaxix, fluconazole 200 g po qday total 14 days and levaquin 750 mg po qday total [address] Velazquez for your consult, will follow up [facility] for Dr. Natalia Juarez MD Infectious Diseases Specialist [facility] M [phone] O [phone] Subjective Date of service: 05/18/17 Principal diagnosis: pneumonia Interval history: I get short of breath when I walk to the bathroom Microbiology: Blood cultures: 12/10 neg 05/12 ngtd Urine cultures: 03/27 <10K Influenza 05/12 neg Current Antimicrobials: Azithromycin 05/16 Diflucan 05/17 levaquin 05/13 Bactrim 05/16 Previous Antimicrobials: Objective - Exam Narrative Exam: General appearance: Alert in NAD, conversant Eyes: anicteric sclerae, moist conjunctivae; no lid-lag; PERRLA HENT: Atraumatic; oropharynx c+shallow ulcers with mild thrush Lungs: nelson crackles, occasional SOB CV: RRR, no murmurs Abdomen: Soft, non-tender; +BS x 4 Extremities: No peripheral edema or extremity lymphadenopathy Skin: Normal temperature, turgor and texture; no rash, ulcers or subcutaneous nodules Psych: Appropriate affect, calm and cooperative Neuro: alert and oriented x 3. Moving all extermities Lines: No CVL / PICC - Constitutional Vitals: Vital Signs Temp Pulse Resp BP Pulse Ox 98.9 F 121 H 18 127/87 95 05/18/17 07:31 05/18/17 07:31 05/18/17 07:31 05/18/17 07:31 05/18/17 07:31 Temperature -Last 24 Hours Temperature 98.9 F Temperature 99.1 F Temperature 99.6 F Temperature 99.3 F Temperature 99.0 F Temperature 98.9 F Temperature 98.4 F - Labs CBC & Chem 7: 05/17/17 03:00 05/17/17 03:45 Labs: Abnormal lab results 05/17/17 Range/Units 03:45 C-Reactive Protein 2.10 H (0.00-1.30) mg/dL
[2017-05-18] MEDS ORDERED: DIFLUCAN 200 ML IV SCH (10:00)
[2017-05-18] MEDS: LEVAQUIN PO SCH (10:35)
[2017-05-18] MEDS: PEPCID PO SCH ×2 (10:35→21:56)
[2017-05-18] MEDS: ZOFRAN IV PRN ×2 (12:34→21:56)
--- NOTE | 2017-05-18 12:58 | Consultation ---
History of Present Illness Consult date: 05/18/17 Consult reason: tachycardia History of present illness: This is a 31yr old woman with a history of HIV disease who is admitted with sepsis and pneumonia. Patient noted an elevated heart rate with her vital signs thus this cardiac consultation. Patient admits to palpitations and shortness of breath. She denies chest pain. She denies prior cardiac workup. An ECG is a sinus tachycardia, rate 102. Past History Past Medical History: HIV/AIDS Social history: no significant social history Family history: no significant family history Medications and Allergies Allergies Allergy/AdvReac Type Severity Reaction Status Date / Time amoxicillin Allergy Rash Verified 03/27/17 09:02 Home Medications Medication Instructions Recorded Confirmed Last Taken Type guaiFENesin [Mucinex] 600 mg PO DAILY 05/12/17 05/12/17 05/11/17 History Active Meds: Active Medications Acetaminophen (Tylenol) 650 mg PO Q4H PRN PRN Reason: Pain MILD(1-3)/Fever >100.5/SNYDER Last Admin: 05/13/17 06:58 Dose: 650 mg Albuterol (Proventil) 2.5 mg IH Q4HRT PRN PRN Reason: Wheezing Last Admin: 05/18/17 11:40 Dose: 2.5 mg Azithromycin (Zithromax) 1,200 mg PO Mo [facility] Last Admin: 05/16/17 21:07 Dose: 1,200 mg Bisacodyl (Dulcolax) 10 mg DE QDAY PRN PRN Reason: Constipation unrelieved by MOM Enoxaparin Sodium (Lovenox) 40 mg SUB-Q QDAY@2200 [facility] Last Admin: 05/17/17 22:16 Dose: 40 mg Famotidine (Pepcid) 20 mg PO BID [facility] Last Admin: 05/18/17 10:35 Dose: 20 mg Fluconazole (Diflucan) 200 mg PO QDAY [facility] Stop: 05/28/17 10:01 Guaifenesin (Robitussin) 200 mg PO Q4H PRN PRN Reason: Cough Last Admin: 05/18/17 12:34 Dose: 200 mg Hydromorphone HCl (Dilaudid) 0.5 mg IV Q3H PRN PRN Reason: Pain , Severe (7-10) Last Admin: 05/18/17 10:39 Dose: 0.5 mg Levofloxacin (Levaquin) 750 mg PO DAILY [facility] Stop: 05/19/17 12:59 Last Admin: 05/18/17 10:35 Dose: 750 mg Lidocaine HCl (Magic Mouthwash) 15 ml PO AC [facility] Last Admin: 05/18/17 12:33 Dose: 15 ml Magnesium Hydroxide (Milk Of Magnesia) 30 ml PO Q4H PRN PRN Reason: Constipation Morphine Sulfate (Morphine) 2 mg IV Q4H PRN PRN Reason: Pain, Moderate (4-6) Last Admin: 05/15/17 07:33 Dose: 2 mg Ondansetron HCl (Zofran) 4 mg IV Q8H PRN PRN Reason: N/V unrelieved by Reglan Last Admin: 05/18/17 12:34 Dose: 4 mg Oxycodone/Acetaminophen (Percocet 5/325) 1 tab PO Q6H PRN PRN Reason: Pain, Moderate (4-6) Last Admin: 05/17/17 05:19 Dose: 1 tab Trimethoprim/Sulfamethoxazole (Bactrim Ds) 1 each PO Q24H [facility] Last Admin: 05/17/17 22:14 Dose: 1 each Physical Examination Vital Signs Temp Pulse Resp BP Pulse Ox 99.1 F 147 H 18 126/88 98 05/12/17 09:55 05/12/17 09:55 05/12/17 09:55 05/12/17 09:55 05/12/17 09:55 General appearance: no acute distress HEENT: Positive: PERRL Neck: Positive: trachea midline Cardiac: Positive: Tachycardia Lungs: Positive: Decreased Breath Sounds Neuro: Positive: Grossly Intact Extremities: Absent: edema Results 05/17/17 03:00 05/17/17 03:45 Assessment and Plan Sepsis Pneumonia HIV disease Neutropenia Thrombocytopenia Sinus tachycardia, reflex Plan: Check a TSH. Echocardiogram for LVEF assessment.
[2017-05-18] MEDS: MORPHINE IV PRN (16:38)
--- NOTE | 2017-05-18 19:36 | Event Note ---
Date: 05/18/17 - full GI consult dictated - plan egd in am
[2017-05-18] MEDS: BACTRIM DS PO SCH (21:56)
[2017-05-18] MEDS: LOVENOX SUB-Q SCH (21:56)
[2017-05-19] MEDS ORDERED: MAGIC MOUTHWASH PO ONE (00:39)
[2017-05-19] MEDS: MORPHINE IV PRN ×2 (01:12→11:55)
[2017-05-19] MEDS: MAGIC MOUTHWASH PO SCH ×5 (02:36→21:36)
[2017-05-19] MEDS: ZOFRAN IV PRN ×2 (06:26→15:05)
[2017-05-19] MEDS: DILAUDID IV PRN (06:30)
[2017-05-19] MEDS ORDERED: BREVIBLOC IV ONE (10:00)
--- NOTE | 2017-05-19 10:09 | Progress Note ---
Assessment and Plan Assessment: 1) Sepsis: fever resolved. Still tachycardia, leukopenia. Etiology most likely pneumonia. 2) Presumed lingular pneumonia: post-influenza pneumonia versus oppotunistic pneumonia ? PJP -CXR lingular pneumonia -Influenza antigen neg -blood cultures 05/12 ngtd -repeat CXR 05/17 showed [id number] posterior LLL opacity. No pneumothorax of effusion -CRP = 2.10 3) HIV infection diagnosed in 2012, recently moved from [place], [place] to [place]. Patient has no established a new HIV office. Patient used to be on tivicay, viread and ?. Last time she took her ART was Jan 2017. She lost her medical insurance. -CD4=29 / VL [id number] on 05/13/17 / genotype pansensitive -cryptococcal serum antigen negative 05/17 4) Neutropenia/thrombocytopenia: Still neutropenia and thrombocytopenia. viral infection +/- HIV +/- MAC/cryptococcosis 5) Recent primary HSV-2 rash +/- mild cellulitis - better. 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 She was treated with IV acyclovir and vancomycin. Resolved 6) Presumed oral candidiasis with persistent dysphagia 7) Blurred vision right eye Plan: -recommend ophthalmology eval -HSV antibody 1 and 2 -obtain CMV PCR -for EGD today -follow up AFB-blood culture -received -continue bactrim DS for PJP prophylaxis - doubt PJP pneumonia in view of upper resp symptoms -continue azithromycin 1200 mg po qweek for MAC prophylaxis -continue fluconazole total day 5 of 14 days -stop levaquin -needs HIV clinic f/u in 1-2 weeks to initiate ART -continue to monitor fever if better ok to d/c on bactrim DS 1 tab q day for PJP prophylaxis, azithromycin 1200 mg po qweek for MAC prophylaxix, fluconazole 200 g po qday total 14 days and levaquin 750 mg po qday total [address] Velazquez for your consult, will follow up [facility] for Dr. Natalia Juarez MD Infectious Diseases Specialist [facility] ([facility] M [phone] O [phone] Subjective Date of service: 05/19/17 Principal diagnosis: pneumonia Interval history: I get short of breath when I walk to the bathroom Microbiology: Blood cultures: 03/27 neg 05/12 ngtd Urine cultures: 03/27 <10K Influenza 05/12 neg Current Antimicrobials: Azithromycin 05/16 Diflucan 05/17 levaquin 05/13 Bactrim 05/16 Previous Antimicrobials: Objective - Exam Narrative Exam: General appearance: Alert in NAD, conversant Eyes: anicteric sclerae, moist conjunctivae; no lid-lag; PERRLA HENT: Atraumatic; oropharynx c+shallow ulcers with mild thrush Lungs: nelson crackles, occasional SOB CV: RRR, no murmurs Abdomen: Soft, non-tender; +BS x 4 Extremities: No peripheral edema or extremity lymphadenopathy Skin: Normal temperature, turgor and texture; no rash, ulcers or subcutaneous nodules Psych: Appropriate affect, calm and cooperative Neuro: alert and oriented x 3. Moving all extermities Lines: No CVL / PICC - Constitutional Vitals: Vital Signs Temp Pulse Resp BP Pulse Ox 98.4 F 113 H 18 119/75 97 05/19/17 07:25 05/19/17 07:25 05/19/17 07:25 05/19/17 07:25 05/19/17 07:25 Temperature -Last 24 Hours Temperature 98.4 F Temperature 98.8 F Temperature 98.9 F Temperature 98.8 F Temperature 98.8 F Temperature 98.0 F - Labs CBC & Chem 7: 05/17/17 03:00 05/17/17 03:45
--- NOTE | 2017-05-19 11:42 | Progress Note ---
Assessment and Plan Sepsis Pneumonia Dysphagia HIV disease Neutropenia Thrombocytopenia Sinus tachycardia, reflex normal TSH Echocardiogram done today, results are pending. Subjective Date of service: 05/19/17 Principal diagnosis: pneumonia Interval history: No cardiac events reported overnight. For planned EGD today. Objective Vital Signs Temp Pulse Pulse Pulse Pulse Resp Resp 05/19/17 11:31 98.7 F 105 H 18 05/19/17 07:25 98.4 F 113 H 18 05/19/17 03:55 98.8 F 106 H 16 05/19/17 00:01 98.9 F 122 H 16 05/18/17 22:12 110 H 18 05/18/17 22:00 115 H 123 H 20 05/18/17 20:20 98.8 F 16 05/18/17 15:41 98.8 F 113 H 18 05/18/17 12:48 98.0 F 124 H 18 05/18/17 11:45 110 H Resp BP Pulse Ox 05/19/17 11:31 117/86 94 05/19/17 07:25 119/75 97 05/19/17 03:55 101/62 98 05/19/17 00:01 111/80 97 05/18/17 22:12 05/18/17 22:00 05/18/17 20:20 121/97 05/18/17 15:41 124/88 97 05/18/17 12:48 130/83 96 05/18/17 11:45 20 - Physical Examination General: No Apparent Distress HEENT: Positive: PERRL Neck: Positive: trachea midline Cardiac: Positive: Tachycardia Neuro: Positive: Grossly Intact Extremities: Absent: edema
--- NOTE | 2017-05-19 14:38 | Progress Note ---
Assessment and Plan Assessment and plan: Patient is a 31 yo woman with a h/o HIV and recent HSV/colonized MSSA buttock infection who presents with SOB and dysphagia. 05/12/17 2v CXR Compared to 03/27/17. Minimal airspace opacity at has developed in the lingula. This may represent segmental atelectasis or early infiltrate. Please correlate with the patient's clinical presentation. The remainder of the lungs are clear. No pleural effusion or pneumothorax. Normal heart and mediastinal structures. Normal bony thorax. IMPRESSION: Questionable lingular opacity, see above. 05/17/17 repeat 2 view CXR: No mediastinal shift. Cardiac silhouette is not enlarged. No pneumothorax or effusion. Ill-defined posterior left lower lung opacity. No acute skeletal or right lung finding. IMPRESSION: Ill-defined posterior left lower lung opacity. No pneumothorax or effusion. -Sepsis Pneumonia, Left lingula, poa: iv abx, follow cultures -HIV: ID is following -Oral candiadiasis, suspected: treat with diflucan -Dysphagia: await GI evaluation -Pancytopenia related to above -Tachycardia, up to 140s: consulted Cardiology, ECHO pending -DVT prophylaxis: sq lovenox "per ID Plan: -f/u GI medicine consult for EGD -follow up AFB-blood culture -received -continue bactrim DS for PJP prophylaxis - doubt PJP pneumonia in view of upper resp symptoms -continue azithromycin 1200 mg po qweek for MAC prophylaxis -continue fluconazole total day 4 of 14 days -continue levaquin day 6 total 7 days -needs HIV clinic f/u in 1-2 weeks to initiate ART -continue to monitor fever if better ok to d/c on bactrim DS 1 tab q day for PJP prophylaxis, azithromycin 1200 mg po qweek for MAC prophylaxix, fluconazole 200 g po qday total 14 days and levaquin 750 mg po qday total 7 days" EGD pending History Interval history: Patient seen and examined, she c/o dysphagia with swallowing pills. Hospitalist Physical - Physical exam Narrative exam: GEN: thin, frail, NAD, AWAKE, ALERT, ORIENTATED x 3 HEENT: NCAT, EOMI, PERRL, OP with whitish plaques NECK: supple, no adenopathy, no thyromegaly, no JVD CVS/HEART: RRR, NORMAL S1S2, NO JVD, pulses present bilaterally CHEST/LUNGS: CTA B, Symmetrical chest expansion, good air entry bilaterally GI/Abdomen: soft, NTND, good bowel sounds, no guarding or rebound /Bladder: no suprapubic tenderness, no CVA or paraspinal tenderness EXT/Skin: no c/c/e, no obvious rash MSK: FROM x 4 Neuro: CN 2-12 grossly intact, no new focal deficits Psych: calm - Constitutional Vitals: Temp Pulse Resp BP Pulse Ox 98.7 F 105 H 18 117/86 94 05/19/17 11:31 05/19/17 11:31 05/19/17 11:55 05/19/17 11:31 05/19/17 11:31 General appearance: Present: no acute distress Results - Labs CBC & Chem 7: 05/17/17 03:00 05/17/17 03:45 Labs: Laboratory Last Values WBC 1.7 K/mm3 (4.5-11.0) L* 05/17/17 03:00 RBC 3.96 M/mm3 (3.65-5.03) 05/17/17 03:00 Hgb 10.6 gm/dl (10.1-14.3) 05/17/17 03:00 Hct 32.1 % (30.3-42.9) 05/17/17 03:00 MCV 81 fl (79-97) 05/17/17 03:00 MCH 27 pg (28-32) L 05/17/17 03:00 MCHC 33 % (30-34) 05/17/17 03:00 RDW 15.4 % (13.2-15.2) H 05/17/17 03:00 Plt Count 139 K/mm3 (140-440) L 05/17/17 03:00 Lymph % (Auto) 13.7 % (13.4-35.0) 05/12/17 10:36 [place] % (Auto) 5.0 % (0.0-7.3) 05/12/17 10:36 Eos % (Auto) 0.1 % (0.0-4.3) 05/12/17 10:36 Baso % (Auto) 0.3 % (0.0-1.8) 05/12/17 10:36 Lymph # 0.4 K/mm3 (1.2-5.4) L 05/12/17 10:36 [place] # 0.2 K/mm3 (0.0-0.8) 05/12/17 10:36 Eos # 0.0 K/mm3 (0.0-0.4) 05/12/17 10:36 Baso # 0.0 K/mm3 (0.0-0.1) 05/12/17 10:36 Add Manual Diff Complete 05/17/17 03:00 Total Counted 25 05/17/17 03:00 Seg Neutrophils % 80.9 % (40.0-70.0) H 05/12/17 10:36 Seg Neuts % (Manual) 92.0 % (40.0-70.0) H 05/17/17 03:00 Band Neutrophils % 4.0 % 05/17/17 03:00 Lymphocytes % (Manual) 4.0 % (13.4-35.0) L 05/17/17 03:00 Reactive Lymphs % (Man) 0 % 05/17/17 03:00 Monocytes % (Manual) 0 % (0.0-7.3) 05/17/17 03:00 Eosinophils % (Manual) 0 % (0.0-4.3) 05/17/17 03:00 Basophils % (Manual) 0 % (0.0-1.8) 05/17/17 03:00 Metamyelocytes % 0 % 05/17/17 03:00 Myelocytes % 0 % 05/17/17 03:00 Promyelocytes % 0 % 05/17/17 03:00 Blast Cells % 0 % 05/17/17 03:00 Nucleated RBC % Not Reportable 05/17/17 03:00 Seg Neutrophils # 2.5 K/mm3 (1.8-7.7) 05/12/17 10:36 Seg Neutrophils # Man 1.6 K/mm3 (1.8-7.7) L 05/17/17 03:00 Band Neutrophils # 0.1 K/mm3 05/17/17 03:00 Lymphocytes # (Manual) 0.1 K/mm3 (1.2-5.4) L 05/17/17 03:00 Abs React Lymphs (Man) 0.0 K/mm3 05/17/17 03:00 Monocytes # (Manual) 0.0 K/mm3 (0.0-0.8) 05/17/17 03:00 Eosinophils # (Manual) 0.0 K/mm3 (0.0-0.4) 05/17/17 03:00 Basophils # (Manual) 0.0 K/mm3 (0.0-0.1) 05/17/17 03:00 Metamyelocytes # 0.0 K/mm3 05/17/17 03:00 Myelocytes # 0.0 K/mm3 05/17/17 03:00 Promyelocytes # 0.0 K/mm3 05/17/17 03:00 Blast Cells # 0.0 K/mm3 05/17/17 03:00 WBC Morphology Not Reportable 05/17/17 03:00 Hypersegmented Neuts Not Reportable 05/17/17 03:00 Hyposegmented Neuts Not Reportable 05/17/17 03:00 Hypogranular Neuts Not Reportable 05/17/17 03:00 Smudge Cells Not Reportable 05/17/17 03:00 Toxic Granulation Not Reportable 05/17/17 03:00 Toxic Vacuolation Not Reportable 05/17/17 03:00 Dohle Bodies Not Reportable 05/17/17 03:00 Pelger-Huet Anomaly Not Reportable 05/17/17 03:00 La Rods Not Reportable 05/17/17 03:00 Platelet Estimate Consistent w auto 05/17/17 03:00 Clumped Platelets Not Reportable 05/17/17 03:00 Plt Clumps, EDTA Not Reportable 05/17/17 03:00 Large Platelets Not Reportable 05/17/17 03:00 Giant Platelets Not Reportable 05/17/17 03:00 Platelet Satelliting Not Reportable 05/17/17 03:00 Plt Morphology Comment Not Reportable 05/17/17 03:00 RBC Morphology Not Reportable 05/17/17 03:00 Dimorphic RBCs Not Reportable 05/17/17 03:00 Polychromasia Not Reportable 05/17/17 03:00 Hypochromasia Not Reportable 05/17/17 03:00 Poikilocytosis Not Reportable 05/17/17 03:00 Anisocytosis 1+ 05/17/17 03:00 Microcytosis Not Reportable 05/17/17 03:00 Macrocytosis Not Reportable 05/17/17 03:00 Spherocytes Not Reportable 05/17/17 03:00 Pappenheimer Bodies Not Reportable 05/17/17 03:00 Sickle Cells Not Reportable 05/17/17 03:00 Target Cells Not Reportable 05/17/17 03:00 Tear Drop Cells Not Reportable 05/17/17 03:00 Ovalocytes Not Reportable 05/17/17 03:00 Helmet Cells Not Reportable 05/17/17 03:00 Rae-Jacinto Bodies Not Reportable 05/17/17 03:00 [place] Rings Not Reportable 05/17/17 03:00 [place] Cells Not Reportable 05/17/17 03:00 Bite Cells Not Reportable 05/17/17 03:00 Crenated Cell Not Reportable 05/17/17 03:00 Elliptocytes Not Reportable 05/17/17 03:00 Acanthocytes (Spur) Not Reportable 05/17/17 03:00 Rouleaux Not Reportable 05/17/17 03:00 Hemoglobin C Crystals Not Reportable 05/17/17 03:00 Schistocytes Not Reportable 05/17/17 03:00 Malaria parasites Not Reportable 05/17/17 03:00 Gaurav Bodies Not Reportable 05/17/17 03:00 Hem Pathologist Commnt No 05/17/17 03:00 Sodium 133 mmol/L (137-145) L 05/17/17 03:45 Potassium 3.6 mmol/L (3.6-5.0) 05/17/17 03:45 Chloride 96.1 mmol/L (98-107) L 05/17/17 03:45 Carbon Dioxide 24 mmol/L (22-30) 05/17/17 03:45 Anion Gap 17 mmol/L 05/17/17 03:45 BUN 10 mg/dL (7-17) 05/17/17 03:45 Creatinine 0.5 mg/dL (0.7-1.2) L 05/17/17 03:45 Estimated GFR > 60 ml/min 05/17/17 03:45 BUN/Creatinine Ratio 20 % 05/17/17 03:45 Glucose 76 mg/dL (65-100) 05/17/17 03:45 POC Glucose 101 (70-105) 05/18/17 00:08 Hemoglobin A1c > 20.1 % (4-6) H 05/13/17 03:42 Lactic Acid 1.10 mmol/L (0.7-2.0) 05/12/17 18:35 Calcium 8.2 mg/dL (8.4-10.2) L 05/17/17 03:45 Phosphorus 3.10 mg/dL (2.5-4.5) 05/17/17 03:45 Magnesium 2.00 mg/dL (1.7-2.3) 05/17/17 03:45 Iron 20 ug/dL (37-170) L 05/13/17 23:44 TIBC 185 mcg/dL (250-450) L 05/13/17 23:44 Total Bilirubin 0.20 mg/dL (0.1-1.2) 05/17/17 03:45 AST 26 units/L (5-40) 05/17/17 03:45 ALT 12 units/L (7-56) 05/17/17 03:45 Alkaline Phosphatase 74 units/L (35-129) 05/17/17 03:45 C-Reactive Protein 2.10 mg/dL (0.00-1.30) H 05/17/17 03:45 Total Protein 7.8 g/dL (6.3-8.2) 05/17/17 03:45 Albumin 3.0 g/dL (3.9-5) L 05/17/17 03:45 Albumin/Globulin Ratio 0.6 % 05/17/17 03:45 Vitamin B12 283.4 pg/mL (211-911) 05/13/17 23:44 TSH 3.290 mlU/mL (0.270-4.200) 05/18/17 13:35 Blood Type B POSITIVE 05/13/17 13:31 Antibody Screen Negative 05/13/17 13:31 Crossmatch See Detail 05/13/17 13:31
[2017-05-19] MEDS ORDERED: NACL 0.9% 1000 ML 1,000 ML IV SCH (15:00)
[2017-05-19] MEDS ORDERED: DIPRIVAN 10 MG/ML IV ONE ×2 (16:03)
--- NOTE | 2017-05-19 16:03 | Anesthesia Day of Surgery ---
Anesthesia Day of Surgery - Day of Surgery Patient Examined: Yes Patient H&P Reviewed: Yes Patient is NPO: Yes
--- NOTE | 2017-05-19 16:04 | Anesthesia Consultation ---
Anesthesia Consult and Med Hx Date of service: 05/19/17 - Airway Anesthetic Teeth Evaluation: Good ROM Head & Neck: Adequate Mental/Hyoid Distance: Adequate Mallampati Class: Class II Intubation Access Assessment: Probably Good - Pulmonary Exam CTA: No - Cardiac Exam Cardiac Exam: RRR - Pre-Operative Health Status ASA Pre-Surgery Classification: ASA3, ASA4 Proposed Anesthetic Plan: General (HIV off meds) - Pulmonary Hx Smoking: No Hx Pneumonia: Yes (2012 and now) - Central Nervous System Hx Psychiatric Problems: No - Other Systems Hx Alcohol Use: Yes Hx Cancer: No
--- NOTE | 2017-05-19 16:06 | Consultation ---
REFERRING PHYSICIAN: Aubrey Parker MD INDICATION: Odynophagia. HISTORY OF PRESENT ILLNESS: The patient is a 31-year-old black female with history of HIV positive, off her antiretroviral therapy since January of last year, who was admitted for pneumonia. The patient subsequently had been admitted and treated for pneumonia. The patient reports that since being admission for the last 3-4 days, she has been having odynophagia with a feeling of hung up as is moving down her esophagus. The patient does have noted thrush has been started on Diflucan, but symptoms have persisted. She reports no history of reflux. She reports no nausea or vomiting. Denies any NSAIDs. Denies any other specific GI problems or complaints. PAST MEDICAL HISTORY: HIV positive. MEDICATIONS: See chart. ALLERGIES: No known drug allergies. SOCIAL HISTORY: Denies alcohol or tobacco. FAMILY HISTORY: Negative for colon cancer. REVIEW OF SYSTEMS: GENERAL: Reports mild weakness. HEENT: No visual complaints or tinnitus. PULMONARY: No shortness of breath. No cough. No chest pain. GASTROINTESTINAL: Reports odynophagia All points of a 13-point review of systems otherwise negative. PHYSICAL EXAMINATION: VITAL SIGNS: Temperature of 98.8, pulse 100, respirations 18, blood pressure 124/88. GENERAL: Fairly thin black female, in no acute distress. HEENT: Pupils equal, round, and reactive. PULMONARY: Clear. CARDIOVASCULAR: Regular rhythm. Normal S1, S2. ABDOMEN: Positive bowel sounds, soft. SKIN: No obvious rashes. LABORATORY DATA: Pertinent for white count 2.1, hemoglobin and hematocrit of 10.6 and 32.1, platelet count of 139. Chem-7: Sodium of 130, potassium 3.6, chloride 96, CO2 of 24, BUN and creatinine of 10 and 0.7. LFTs within normal limits. ASSESSMENT AND PLAN: A 31-year-old black female with human immunodeficiency virus positive, off antiretroviral therapy for the last 3-4 months, presented now with pneumonia. The patient now with odynophagia, with noted oral thrush. She is on Diflucan, but symptoms are persisted. Management is noted below. PLAN: 1. Continue Diflucan. 2. PPI daily. 3. Avoid NSAIDs and aspirin. 4. We will plan for EGD in a.m. JOB# [id number] [facility]/ANDRÉS ESTEVEZ
--- NOTE | 2017-05-19 16:22 | Post Anesthesia Evaluation ---
- Post Anesthesia Evaluation Patient Participated: Yes Airway Patent: Yes Stable Respiratory Function: Yes Nausea/Vomiting: No Temp > 96.8F: Yes Pain Manageable: Yes Adequeate Hydration: Yes Anesthesia Complications: No
--- NOTE | 2017-05-19 16:29 | Post Operative Note ---
Pre-op diagnosis: dysphagia Post-op diagnosis: same Findings: EGD: multiple 3-6 scattered, shallow ulcers along length esophagus (bx's, r/o cmv/hsv vs other) - hiatal hernia - gastritis - negative other Procedure: EGD Anesthesia: MAC Surgeon: GINNA BABIN Estimated blood loss: none Pathology: list Specimen disposition: to lab Condition: stable Disposition: floor
[2017-05-19] MEDS: PEPCID PO SCH ×2 (17:47→21:36)
[2017-05-19] MEDS: DIFLUCAN PO SCH (17:47)
[2017-05-19] MEDS: CARAFATE PO SCH (17:48)
[2017-05-19] MEDS: PERCOCET 5/325 PO PRN (17:51)
[2017-05-19] MEDS: LEVAQUIN PO SCH ×2 (18:14→18:17)
[2017-05-19] MEDS ORDERED: LEVAQUIN PO ONE (18:30)
[2017-05-19] MEDS: BACTRIM DS PO SCH (21:36)
[2017-05-19] MEDS: LOVENOX SUB-Q SCH (21:37)
--- NOTE | 2017-05-19 21:57 | Operative Report ---
PROCEDURE: EGD with cold biopsy. INDICATION: 1. Dysphagia. 2. Odynophagia. MEDICATIONS: Propofol per ENGRAVER TIRE MOLD. COMPLICATIONS: None. DESCRIPTION OF PROCEDURE: The patient brought to procedure suite. The patient had the procedure discussed with her at length. All risks, complications, and benefits were discussed, which the patient signed for the procedure performed. The patient was placed in left lateral decubitus position. Mouth block was placed in the patient's oral cavity. After adequate sedation medication as above, endoscope was introduced into the mouth and brought to the level of the second portion of duodenum. Retroflexion view performed. The patient's vital signs remained stable throughout the procedure. FINDINGS: There were noted to be multiple scattered 3-6 mm fairly superficial, slightly erythematous ulcers noted along the length of the esophagus. Again, these were scattered with mild erythema. Multiple biopsies were taken to rule out pathology including HSV and CMV. Small hiatal hernia at GE junction 30 cm from the gums. The esophagus otherwise appeared to be normal. Mild gastritis noted at the stomach. Stomach otherwise appeared to be normal. Duodenum appeared to be normal. Retroflexion view performed in the stomach showed no other pathology. Addendum: It should be noted there was moderate gastritis noted throughout the stomach. Biopsies were taken and sent for pathology. The patient tolerated the procedure well. No complications during the procedure. IMPRESSION: 1. Scattered ulcers along the length of the esophagus, raising the possibility of viral inclusions with biopsies taken and sent to pathology. 2. Hiatal hernia. 3. Gastritis throughout the stomach with biopsies taken and sent to pathology. 4. Otherwise, normal stomach. 5. Normal duodenum. RECOMMENDATIONS: 1. Followup biopsy results. 2. Stool for H. pylori, if positive, we will treat. 3. PPI daily and Carafate suspension q.i.d. 4. Await further ID input. 5. Stable, in a.m. and tolerating p.o., okay to discharge from GI standpoint. JOB# [id number] [facility]
[2017-05-20] MEDS: CARAFATE PO SCH ×4 (01:11→17:07)
[2017-05-20] MEDS: ROBITUSSIN PO PRN ×2 (01:12→09:04)
[2017-05-20] MEDS: MORPHINE IV PRN ×3 (01:12→13:33)
[2017-05-20] MEDS: PERCOCET 5/325 PO PRN (03:49)
[2017-05-20] MEDS: DIFLUCAN PO SCH ×2 (08:51→10:17)
[2017-05-20] MEDS: MAGIC MOUTHWASH PO SCH ×3 (08:51→17:08)
[2017-05-20] MEDS: PEPCID PO SCH ×2 (08:55→11:00)
--- NOTE | 2017-05-20 09:12 | Progress Note ---
Assessment and Plan Sepsis Pneumonia Dysphagia HIV disease Neutropenia Thrombocytopenia Sinus tachycardia, reflex normal TSH Echocardiogram: normal LV systolic function, EF 55-60%. Conservative management of physiologic sinus tachycardia. The sinus rate should return to normal when acute medical illnesses resolved. Subjective Date of service: 05/20/17 Principal diagnosis: pneumonia Interval history: Patient reports intermittent palpitations. No cardiac events reported overnight. Objective Vital Signs Temp Pulse Pulse Resp BP Pulse Ox 05/20/17 04:16 98.9 F 104 H 16 101/69 96 05/19/17 23:48 99.1 F 107 H 16 127/90 98 05/19/17 22:00 107 H 18 05/19/17 19:17 98.7 F 109 H 16 133/84 97 05/19/17 17:51 18 05/19/17 16:53 106 H 21 125/89 99 05/19/17 16:42 119 H 16 120/89 100 05/19/17 16:31 107 H 17 117/86 97 05/19/17 16:25 98.6 F 110 H 18 117/86 99 05/19/17 15:54 99.1 F 102 H 16 128/91 98 05/19/17 15:44 99.1 F 102 H 16 128/91 98 05/19/17 12:25 18 05/19/17 11:55 18 05/19/17 11:31 98.7 F 105 H 18 117/86 94 - Physical Examination General: No Apparent Distress HEENT: Positive: PERRL Neck: Positive: trachea midline Cardiac: Positive: Tachycardia Neuro: Positive: Grossly Intact Extremities: Absent: edema
[2017-05-20 09:56] LABS: Hematocrit 31.5 % (30.3-42.9); Hemoglobin 10.2 gm/dl (10.1-14.3); Mean Corpuscular HGB Conc 33 % (30-34); Mean Corpuscular Volume 79 fl (79-97); Platelet Count 165 K/mm3 (140-440); Red Blood Count 3.96 M/mm3 (3.65-5.03); Red Cell Distribution Width 15.4 % (13.2-15.2)
[2017-05-20 10:02] LABS: BUN/Creatinine Ratio 16; Blood Urea Nitrogen 8 mg/dL (7-17); Calcium 8.2 mg/dL (8.4-10.2); Hemolysis Index 8
[2017-05-20 10:03] LABS: Mean Corpuscular Hemoglobin 26 pg (28-32)
--- NOTE | 2017-05-20 10:13 | Progress Note ---
Assessment and Plan Assessment: 1) Sepsis:Still tachycardia, leukopenia. Etiology most likely pneumonia. 2) Presumed lingular pneumonia: post-influenza pneumonia versus oppotunistic pneumonia ? PJP -CXR lingular pneumonia -Influenza antigen neg -blood cultures 05/12 ngtd -repeat CXR 05/17 showed [id number] posterior LLL opacity. No pneumothorax of effusion -CRP = 2.10 3) HIV infection diagnosed in 2012, recently moved from [place], [place] to [place]. Patient has no established a new HIV office. Patient used to be on tivicay, viread and ?. Last time she took her ART was Jan 2017. She lost her medical insurance. -CD4=29 / VL [id number] on 05/13/17 / genotype pansensitive -cryptococcal serum antigen negative 05/17 4) Neutropenia/thrombocytopenia: Still neutropenia. viral infection +/- HIV +/- MAC/cryptococcosis 5) Recent primary HSV-2 rash +/- mild cellulitis - better. 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 She was treated with IV acyclovir and vancomycin. Resolved 6) Presumed oral candidiasis with persistent dysphagia 7) Blurred vision right eye Plan: -recommend ophthalmology eval -f/u HSV antibody 1 and 2 -f/u CMV PCR -follow up AFB-blood culture -received -continue bactrim DS for PJP prophylaxis - doubt PJP pneumonia in view of upper resp symptoms -continue azithromycin 1200 mg po qweek for MAC prophylaxis -continue fluconazole total day 5 of 14 days -needs HIV clinic f/u in 1-2 weeks to initiate ART -continue to monitor fever if better ok to d/c on bactrim DS 1 tab q day for PJP prophylaxis, azithromycin 1200 mg po qweek for MAC prophylaxix, fluconazole 200 g po qday total 14 days and levaquin 750 mg po qday total 7 days We will sign off Dr. Willy cheek on Tuesday Thank you Dr. Velazquez for your consult, will follow up [facility] for Dr. Natalia Juarez MD Infectious Diseases Specialist [facility] ([facility] M [phone] O [phone] Subjective Date of service: 05/20/17 Principal diagnosis: pneumonia Interval history: I feel so much better today and I can eat, no fever Microbiology: Blood cultures: 03/27 neg 05/12 ngtd Urine cultures: 03/27 <10K Influenza 05/12 neg Current Antimicrobials: Azithromycin 05/16 Diflucan 05/17 levaquin 05/13 Bactrim 05/16 Previous Antimicrobials: Objective - Exam Narrative Exam: General appearance: Alert in NAD, conversant Eyes: anicteric sclerae, moist conjunctivae; no lid-lag; PERRLA HENT: Atraumatic; oropharynx c+shallow ulcers with mild thrush Lungs: nelson crackles, occasional SOB CV: RRR, no murmurs Abdomen: Soft, non-tender; +BS x 4 Extremities: No peripheral edema or extremity lymphadenopathy Skin: Normal temperature, turgor and texture; no rash, ulcers or subcutaneous nodules Psych: Appropriate affect, calm and cooperative Neuro: alert and oriented x 3. Moving all extermities Lines: No CVL / PICC - Constitutional Vitals: Vital Signs Temp Pulse Resp BP Pulse Ox 98.3 F 93 H 18 111/82 98 05/20/17 07:47 05/20/17 07:47 05/20/17 07:47 05/20/17 07:47 05/20/17 07:47 Temperature -Last 24 Hours Temperature 98.3 F Temperature 98.9 F Temperature 99.1 F Temperature 98.7 F Temperature 98.6 F Temperature 99.1 F Temperature 99.1 F Temperature 98.7 F - Labs CBC & Chem 7: 05/20/17 09:15 05/20/17 09:15 Labs: Abnormal lab results 05/20/17 05/20/17 Range/Units 09:15 09:15 WBC 1.9 L* (4.5-11.0) K/mm3 MCH 26 L (28-32) pg RDW 15.4 H (13.2-15.2) % Sodium 133 L (137-145) mmol/L Chloride 96.0 L (98-107) mmol/L Creatinine 0.5 L (0.7-1.2) mg/dL Calcium 8.2 L (8.4-10.2) mg/dL
--- NOTE | 2017-05-20 11:19 | Gastroenterology Progress Note ---
Assessment and Plan 1.odynophagia 2.dysphagia 3.HIV 4.pneumonia 5.oral candidiasis -s/p EGD yesterday that revealed multiple 3-6 scattered shallow ulcers along length esophagus (bx obtained to r/o CMV/HSV vs other), hiatal hernia, and gastritis -Bx results pending-f/u in clinic -clinically pt still c/o odynophagia but no dysphagia -tolerating soft diet -ID following -continue current medications with PPI, carafate, diflucan, magic mouth wash -continue supportive care -no further GI recommendations- pt is okay to be d/c per GI standpoint with f/u clinic appt in 2 weeks -will sign off, please call if needed Subjective Date of service: 05/20/17 Principal diagnosis: dysphagia Interval history: Patient sitting up in bed w/o acute distress and family at bedside. c/o continued odynophagia but was able to tolerate soft diet this am. No abd pain or N/V. Objective - Constitutional Vitals: Temp Pulse Resp BP Pulse Ox 98.3 F 93 H 18 111/82 98 05/20/17 07:47 05/20/17 07:47 05/20/17 07:47 05/20/17 07:47 05/20/17 07:47 General appearance: no acute distress - EENT ENT: other (+oral thrush) - Respiratory Respiratory: bilateral: diminished (anterior) - Cardiovascular Rhythm: regular Heart Sounds: Present: S1 & S2 - Gastrointestinal General gastrointestinal: Present: soft, non-tender, non-distended, normal bowel sounds - Neurologic Neurological: alert and oriented x3 - Labs CBC & Chem 7: 05/20/17 09:15 05/20/17 09:15 Labs: Laboratory Results - last 24 hr 05/20/17 05/20/17 09:15 09:15 WBC 1.9 L* RBC 3.96 Hgb 10.2 Hct 31.5 MCV 79 MCH 26 L MCHC 33 RDW 15.4 H Plt Count 165 Sodium 133 L Potassium 3.9 Chloride 96.0 L Carbon Dioxide 24 Anion Gap 17 BUN 8 Creatinine 0.5 L Estimated GFR > 60 BUN/Creatinine Ratio 16 Glucose 93 Calcium 8.2 L
[2017-05-20] MEDS ORDERED: PROTONIX PO SCH (12:00)
--- NOTE | 2017-05-20 12:55 | Discharge Summary ---
Providers - Providers Date of Admission: 05/12/17 17:51 Date of discharge: 05/20/17 Attending physician: SHANTELL CRAFT 05/14/17 18:01 Consult to Physician [CONS] Routine Consulting Provider: NAHEED HANSEN Reason For Exam: HIN, Pneumonia Place consult to:: Willy Notified:: PLEASE CALL MD IN AM Was contact made?: No 05/18/17 05:04 Consult to Physician [CONS] Routine Consulting Provider: STEVE STOUT Reason For Exam: Dysphagia-?Esophageal candidiasis Place consult to:: Viktor Notified:: yes Phone number called:: [phone] If yes, spoke with:: office Time called:: 09:30 Comment:: Dr Corona called us back Primary care physician: [employer] SUPERVISOR Hospitalization Condition: Stable Hospital course: Patient is a 31 yo woman with a h/o HIV and recent HSV/colonized MSSA buttock infection who presents with SOB and dysphagia. 05/12/17 2v CXR Compared to 03/27/17. Minimal airspace opacity at has developed in the lingula. This may represent segmental atelectasis or early infiltrate. Please correlate with the patient's clinical presentation. The remainder of the lungs are clear. No pleural effusion or pneumothorax. Normal heart and mediastinal structures. Normal bony thorax. IMPRESSION: Questionable lingular opacity, see above. 05/17/17 repeat 2 view CXR: No mediastinal shift. Cardiac silhouette is not enlarged. No pneumothorax or effusion. Ill-defined posterior left lower lung opacity. No acute skeletal or right lung finding. IMPRESSION: Ill-defined posterior left lower lung opacity. No pneumothorax or effusion. -Sepsis Pneumonia, Left lingula, poa: iv abx, follow cultures -HIV: ID is following -Oral candiadiasis, suspected: treat with diflucan -Odynophagia due to multiple Esophageal ulcers: await GI evaluation -Pancytopenia related to above -Leukopenia most likely related to HIV -Tachycardia, up to 140s: consulted Cardiology, ECHO pending -DVT prophylaxis: sq lovenox per ID, Dr. Aguilera/Navya NUTRITION SPECIALIST's Plan: "-recommend ophthalmology eval -f/u HSV antibody 1 and 2 -f/u CMV PCR -follow up AFB-blood culture -received -continue bactrim DS for PJP prophylaxis - doubt PJP pneumonia in view of upper resp symptoms -continue azithromycin 1200 mg po qweek for MAC prophylaxis -continue fluconazole total day 5 of 14 days -stop levaquin -needs HIV clinic f/u in 1-2 weeks to initiate ART -continue to monitor fever if better ok to d/c on bactrim DS 1 tab q day for PJP prophylaxis, azithromycin 1200 mg po qweek for MAC prophylaxix, fluconazole 200 g po qday total 14 days and levaquin 750 mg po qday total 7 days [facility] for Portal Architect appointment Dr. Anshu Bañuelos [address], [place] [address] per GI, Dr. Corona: "Assessment and Plan 1.odynophagia 2.dysphagia 3.HIV 4.pneumonia 5.oral candidiasis -s/p EGD yesterday that revealed multiple 3-6 scattered shallow ulcers along length esophagus (bx obtained to r/o CMV/HSV vs other), hiatal hernia, and gastritis -Bx results pending-f/u in clinic -clinically pt still c/o odynophagia but no dysphagia -tolerating soft diet -ID following -continue current medications with PPI, carafate, diflucan, magic mouth wash -continue supportive care -no further GI recommendations- pt is okay to be d/c per GI standpoint with f/u clinic appt in 2 weeks -will sign off, please call if needed" "per Cardiology for the tachycardia: Sepsis Pneumonia Dysphagia HIV disease Neutropenia Thrombocytopenia Sinus tachycardia, reflex, normal TSH Echocardiogram: normal LV systolic function, EF 55-60%. Conservative management of physiologic sinus tachycardia. The sinus rate should return to normal when acute medical illnesses resolved." 05/19/[address] Corona "Pre-op diagnosis: dysphagia Post-op diagnosis: same Findings: EGD: multiple 3-6 scattered, shallow ulcers along length esophagus (bx's, r/o cmv/hsv vs other) - hiatal hernia - gastritis - negative other Procedure: EGD Anesthesia: MAC Surgeon: GINNA CORONA Estimated blood loss: none Pathology: list Specimen disposition: to lab Condition: stable Disposition: floor Plan: f/u bx's - soft diet - Carafate - await further ID input - if stable in am ok to d/c from GI standpoint with outpt f/u" Disposition: DC-01 TO HOME OR SELFCARE Time spent for discharge: 39 minutes Core Measure Documentation - Palliative Care Palliative Care/ Comfort Measures: Not Applicable - Core Measures Any of the following diagnoses?: none - VTE Discharge Requirements Deep Vein Thrombosis/Pulmonary Embolism Present on Admission: No Has pt received <5 days of overlap therapy or INR<2.0: No Anticoagulant overlap therapy prescribed at discharge: No Contraindication No Overlap Therapy order at DC: Not Indicated Exam - Physical Exam Narrative exam: GEN: thin, frail, NAD, AWAKE, ALERT, ORIENTATED x 3 HEENT: NCAT, EOMI, PERRL, OP with whitish plaques NECK: supple, no adenopathy, no thyromegaly, no JVD CVS/HEART: RRR, NORMAL S1S2, NO JVD, pulses present bilaterally CHEST/LUNGS: CTA B, Symmetrical chest expansion, good air entry bilaterally GI/Abdomen: soft, NTND, good bowel sounds, no guarding or rebound /Bladder: no suprapubic tenderness, no CVA or paraspinal tenderness EXT/Skin: no c/c/e, no obvious rash MSK: FROM x 4 Neuro: CN 2-12 grossly intact, no new focal deficits Psych: calm - Constitutional Vitals: Temp Pulse Resp BP Pulse Ox 98.3 F 93 H 18 111/82 98 05/20/17 07:47 05/20/17 07:47 05/20/17 07:47 05/20/17 07:47 05/20/17 07:47 Plan Activity: other (no strenous activity until cleared by pcp) Diet: other (GI soft diet x 1-2 weeks) Additional Instructions: [facility] for Portal Architect appointment. Dr. Anshu Bañuelos. [address] [facility] [address] [place] [address]. Follow up with: WALDO FERRER MD [Primary Care Provider] - 3-5 Days GINNA CORONA MD [Staff Physician] - 7 Days NAHEED HANSEN MD [Staff Physician] - 7 Days Prescriptions: ALBUTEROL NEB's [Proventil 0.083% NEBS] 2.5 mg IH Q4HRT PRN #30 nebu PRN Reason: Wheezing Azithromycin [Zithromax TAB] 1,200 mg PO Mo #4 tablet Fluconazole [Diflucan TAB] 200 mg PO QDAY #8 tablet guaiFENesin [Robitussin] 200 mg PO Q4H PRN #30 oral.liqd PRN Reason: Cough Levofloxacin [Levaquin] 750 mg PO QDAY #7 tablet Metoclopramide [Reglan ORAL LIQ] 10 mg PO Q8H PRN #30 oral.liqd PRN Reason: Nausea oxyCODONE /ACETAMINOPHEN [Percocet 5/325 mg] 1 tab PO Q6H PRN #20 tablet PRN Reason: Pain, Moderate (4-6) Pantoprazole [Protonix TAB] 40 mg PO QDAY #30 tablet Sucralfate [Carafate] 1 gm PO Q6HR #30 oral.liqd Sulfamethoxazole/Trimethoprim [Bactrim DS TAB] 1 each PO Q24H #30 tablet
[2017-05-20 16:02] VITALS: BP 108/72
== END 2017-05-20 17:30 | disposition home or self-care (01) | DRG 974 ==
LOC: ED 09:20 → 3A 17:51
PROVIDERS: ADMIT Internal Medicine; ATTEND Internal Medicine
PROC: 30233N1 Transfusion of Nonautologous Red Blood Cells into Peripheral Vein, Percutaneous Approach (ICD-10-PCS; 2017-05-13)
PROC: 0DB68ZX Excision of Stomach, Via Natural or Artificial Opening Endoscopic, Diagnostic (ICD-10-PCS; principal; 2017-05-19)
DX: B20 Human immunodeficiency virus [HIV] disease (principal); A41.9 Sepsis, unspecified organism; E43 Unspecified severe protein-calorie malnutrition; J18.9 Pneumonia, unspecified organism; E87.1 Hypo-osmolality and hyponatremia; B37.0 Candidal stomatitis; K22.10 Ulcer of esophagus without bleeding; E87.6 Hypokalemia; E83.51 Hypocalcemia; F12.90 Cannabis use, unspecified, uncomplicated; D63.8 Anemia in other chronic diseases classified elsewhere; R13.10 Dysphagia, unspecified; R13.11 Dysphagia, oral phase; H53.8 Other visual disturbances; K44.9 Diaphragmatic hernia without obstruction or gangrene; K29.70 Gastritis, unspecified, without bleeding; Z88.1 Allergy status to other antibiotic agents; Z68.23 Body mass index [BMI] 23.0-23.9, adult; Z87.01 Personal history of pneumonia (recurrent); Z72.89 Other problems related to lifestyle
CPT/HCPCS: 36415; 71046; 80048; 80053; 81025; 82140; 82607; 82962; 83036; 83550; 83735; 84100; 84443; 85007; 85025; 85027; 86140; 86403; 86695; 86850; 86900; 86901; 86920; 87040; 87400; 87497; 88305; 88342; 93005; 93010; 93306; 94640; 96365; 96375; 99285; J1170; J1450; J1650; J1956; J2270; J2405; J2704; J7030; J7040; J7042; P9016

== ENCOUNTER 2017-12-26 16:14 | Emergency (ER) | payer MEDICAID ==
[2017-12-26 16:43] VITALS: BP 132/84
[2017-12-26] MEDS ORDERED: PERCOCET 5/325 PO ONE (21:45)
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
[2017-12-26 23:25] LABS: Basophils % (Auto) 0.4 % (0.0-1.8); Eosinophils # (Auto) 0.1 K/mm3 (0.0-0.4); Eosinophils % (Auto) 3.6 % (0.0-4.3); Hematocrit 32.7 % (30.3-42.9); Hemoglobin 10.5 gm/dl (10.1-14.3); Lymphocytes # (Auto) 0.5 K/mm3 (1.2-5.4); Lymphocytes % (Auto) 22.5 % (13.4-35.0); Mean Corpuscular HGB Conc 32 % (30-34); Mean Corpuscular Volume 80 fl (79-97); Monocytes # (Auto) 0.2 K/mm3 (0.0-0.8); Monocytes % (Auto) 9.5 % (0.0-7.3); Platelet Count 268 K/mm3 (140-440); Red Blood Count 4.11 M/mm3 (3.65-5.03); Red Cell Distribution Width 17.5 % (13.2-15.2)
[2017-12-26 23:36] LABS: Mean Corpuscular Hemoglobin 26 pg (28-32)
[2017-12-26 23:43] LABS: Alanine Aminotransferase 8 units/L (7-56); Albumin 3.9 g/dL (3.9-5); BUN/Creatinine Ratio 26; Blood Urea Nitrogen 13 mg/dL (7-17); Calcium 9.4 mg/dL (8.4-10.2); Hemolysis Index 3
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
== END 2017-12-27 04:30 | disposition home or self-care (01) ==
LOC: ED 16:14
DX: S20.212A Contusion of left front wall of thorax, initial encounter (principal); S60.212A Contusion of left wrist, initial encounter; R10.32 Left lower quadrant pain; Z88.1 Allergy status to other antibiotic agents; Z21 Asymptomatic human immunodeficiency virus [HIV] infection status; V89.2XXA Person injured in unspecified motor-vehicle accident, traffic, initial encounter; Y93.89 Activity, other specified; Y92.89 Other specified places as the place of occurrence of the external cause; Y99.8 Other external cause status
CPT/HCPCS: 36415; 71260; 73110; 74177; 80053; 84484; 85025; 93005; 93010; 99284; Q9967

== ENCOUNTER 2018-05-02 14:39 | Emergency (ER) | payer SELFPAY ==
--- NOTE | 2018-05-02 15:57 | Emergency Department Report ---
- General Chief complaint: Medical Clearance Stated complaint: OPEN WOUND Time Seen by Provider: 05/02/18 15:37 Source: patient Mode of arrival: Ambulatory Limitations: No Limitations - History of Present Illness Initial comments: Ms. Baker is a 32-year-old female with history of AIDS last CD4 count 45 with detectable viral load followed by [facility]. She presents with ulcers in her gluteal buttock regions. Very tender to touch. Has had several negative herpes assays. However previous outbreak resolved with herpes treatment. MD complaint: rash -: Gradual Location: buttocks Severity: moderate Quality: burning Consistency: constant Improves with: none Worsens with: none Context: recent illness Associated symptoms: denies other symptoms - Related Data Previous Rx's Medication Instructions Recorded Last Taken Type Azithromycin [Zithromax TAB] 1,200 mg PO Mo #10 tablet 12/01/17 Unknown Rx Sulfamethoxazole/Trimethoprim 2 each PO Q8HR 18 Days tablet 12/01/17 Unknown Rx [Bactrim DS TAB] Triumeq Tablet 600 mg PO QHS #30 12/01/17 Unknown Rx Ibuprofen [Motrin 600 MG tab] 600 mg PO Q8H PRN #30 tablet 12/27/17 Unknown Rx Baclofen [Lioresal] 10 mg PO TID PRN #9 tab 03/27/18 Unknown Rx Naproxen [Naprosyn] 500 mg PO TID #12 tablet 03/27/18 Unknown Rx Acyclovir [Zovirax] 400 mg PO TID 10 Days #30 tablet 05/02/18 Unknown Rx Allergies Allergy/AdvReac Type Severity Reaction Status Date / Time amoxicillin Allergy Rash Verified 05/02/18 15:02 Abscess Boil HPI - HPI Chief Complaint: Medical Clearance Stated Complaint: OPEN WOUND Time Seen by Provider: 05/02/18 15:37 Home Medications: Previous Rx's Medication Instructions Recorded Last Taken Type Azithromycin [Zithromax TAB] 1,200 mg PO Mo #10 tablet 12/01/17 Unknown Rx Sulfamethoxazole/Trimethoprim 2 each PO Q8HR 18 Days tablet 12/01/17 Unknown Rx [Bactrim DS TAB] Triumeq Tablet 600 mg PO QHS #30 12/01/17 Unknown Rx Ibuprofen [Motrin 600 MG tab] 600 mg PO Q8H PRN #30 tablet 12/27/17 Unknown Rx Baclofen [Lioresal] 10 mg PO TID PRN #9 tab 03/27/18 Unknown Rx Naproxen [Naprosyn] 500 mg PO TID #12 tablet 03/27/18 Unknown Rx Acyclovir [Zovirax] 400 mg PO TID 10 Days #30 tablet 05/02/18 Unknown Rx Allergies/Adverse Reactions: Allergies Allergy/AdvReac Type Severity Reaction Status Date / Time amoxicillin Allergy Rash Verified 05/02/18 15:02 ED Review of Systems ROS: Stated complaint: OPEN WOUND Other details as noted in HPI Constitutional: denies: fever, malaise Skin: rash, lesions ED Past Medical Hx - Past Medical History Previous Medical History?: Yes Hx Congestive Heart Failure: No Hx Diabetes: No Hx Asthma: No Hx COPD: No Hx HIV: Yes (since 2012) - Surgical History Past Surgical History?: No - Social History Smoking Status: Never Smoker Substance Use Type: None - Medications Home Medications: Home Medications Medication Instructions Recorded Confirmed Last Taken Type Azithromycin [Zithromax TAB] 1,200 mg PO Mo #10 tablet 12/01/17 Unknown Rx Sulfamethoxazole/Trimethoprim 2 each PO Q8HR 18 Days tablet 12/01/17 Unknown Rx [Bactrim DS TAB] Triumeq Tablet 600 mg PO QHS #30 12/01/17 Unknown Rx Ibuprofen [Motrin 600 MG tab] 600 mg PO Q8H PRN #30 tablet 12/27/17 Unknown Rx Baclofen [Lioresal] 10 mg PO TID PRN #9 tab 03/27/18 Unknown Rx Naproxen [Naprosyn] 500 mg PO TID #12 tablet 03/27/18 Unknown Rx Acyclovir [Zovirax] 400 mg PO TID 10 Days #30 tablet 05/02/18 Unknown Rx ED Physical Exam - General Limitations: No Limitations General appearance: alert, in no apparent distress - Head Head exam: Present: atraumatic, normocephalic - Neurological Exam Neurological exam: Present: alert, oriented X3 - Psychiatric Psychiatric exam: Present: normal affect, normal mood - Skin Skin exam: Present: other (multiple large ulcers with beefy red Center involving the buttocks and perineum) ED Course Vital Signs 05/02/18 15:02 Temperature 98 F Pulse Rate 100 H Respiratory 18 Rate Blood Pressure 119/65 O2 Sat by Pulse 100 Oximetry ED Medical Decision Making - Medical Decision Making Buttock skin infection likely due to HSV. Prescribed acyclovir. Instructed to follow-up with personal infectious disease physician. Critical care attestation.: If time is entered above; I have spent that time in minutes in the direct care of this critically ill patient, excluding procedure time. ED Disposition Clinical Impression: Skin ulcer Disposition: DC-01 TO HOME OR SELFCARE Is pt being admited?: No Does the pt Need Aspirin: No Condition: Stable Instructions: Genital Herpes Simplex (ED) Prescriptions: Acyclovir [Zovirax] 400 mg PO TID 10 Days #30 tablet
== END 2018-05-02 16:18 | disposition home or self-care (01) ==
LOC: ED 14:39
CPT/HCPCS: 99282

== ENCOUNTER 2019-10-16 14:04 | Emergency (ER) | payer MEDICARE ==
[2019-10-16 14:10] VITALS: BP 125/84
--- NOTE | 2019-10-16 14:12 | Event Note ---
ED Screening Note ED Screening Note: asthmatic with wheezing no fever or chills no sputum This initial assessment/diagnostic orders/clinical plan/treatment(s) is/are subject to change based on patients health status, clinical progression and re- assessment by fellow clinical providers in the ED. Further treatment and workup at subsequent clinical providers discretion. Patient/guardian urged not to elope from the ED as their condition may be serious if not clinically assessed and managed. Initial orders include:
--- NOTE | 2019-10-16 14:45 | XRay Report ---
CHEST 2 VIEWS INDICATION / CLINICAL INFORMATION: cough. COMPARISON: 03/27/18 FINDINGS: SUPPORT DEVICES: None. HEART / MEDIASTINUM: No significant abnormality. LUNGS / PLEURA: No significant pulmonary or pleural abnormality. No pneumothorax. ADDITIONAL FINDINGS: No significant additional findings. IMPRESSION: 1. No acute findings. Signer Name: Leonora White MD Signed: 10/16/2019 2:40 PM Workstation Name: [id number]
--- NOTE | 2019-10-16 14:55 | Emergency Department Report ---
Minor Respiratory - HPI Chief Complaint: Upper Respiratory Infection Stated Complaint: COUGH Time Seen by Provider: 10/16/19 14:10 Duration: 3 Days Pain Location: Chest Severity: mild Minor Respiratory: Yes Able to Tolerate Fluids, Yes Cough, No Rhinorrhea, No Sore Throat, No Ear Pain, No Sick Contacts, No Hemoptysis, No Chest Pain, No Shortness of Breath, No Fever Other History: 33 yo aa female who asthma that comes in with wheezing. she has been doing her nebs/inhaler. no fever or chills. no sputum. high risk- ro covid ED Review of Systems ROS: Stated complaint: COUGH Other details as noted in HPI Comment: All other systems reviewed and negative ED Past Medical Hx - Past Medical History Previous Medical History?: Yes Hx Congestive Heart Failure: No Hx Diabetes: No Hx Asthma: Yes Hx COPD: No Hx HIV: Yes (since 2012) - Surgical History Past Surgical History?: Yes Additional Surgical History: polp removal - Family History Family history: no significant - Social History Smoking Status: Current Every Day Smoker Substance Use Type: None - Medications Home Medications: Home Medications Medication Instructions Recorded Confirmed Last Taken Type Sulfamethoxazole/Trimethoprim 2 each PO Q8HR 18 Days tablet 12/01/17 Unknown Rx [Bactrim DS TAB] Triumeq Tablet 600 mg PO QHS #30 12/01/17 Unknown Rx Ibuprofen [Motrin 600 MG tab] 600 mg PO Q8H PRN #30 tablet 12/27/17 Unknown Rx Baclofen [Lioresal] 10 mg PO TID PRN #9 tab 03/27/18 Unknown Rx Naproxen [Naprosyn] 500 mg PO TID #12 tablet 03/27/18 Unknown Rx Acyclovir [Acyclovir Ointment] 1 applicatio TP 5XD 7 Days #1 tube 05/02/18 Unknown Rx Acyclovir [Zovirax] 400 mg PO TID 10 Days #30 tablet 05/02/18 Unknown Rx Azithromycin [Zithromax TAB] 1,200 mg PO Mo #10 tablet 10/16/19 Unknown Rx Benzonatate [Tessalon Perles] 100 mg PO Q12H PRN #20 capsule 10/16/19 Unknown Rx Cetirizine HCl [ZyrTEC] 10 mg PO DAILY #30 capsule 10/16/19 Unknown Rx predniSONE [Deltasone] 20 mg PO DAILY #5 tablet 10/16/19 Unknown Rx Minor Respiratory Exam - Exam General: Vital signs noted. No distress. Alert and acting appropriately. HEENT: Yes Moist Mucous Membranes, No Pharyngeal Erythema, No Pharyngeal Exudates, No Rhinorrhea, No Conjuctival Injection, No Frontal Tenderness, No Maxillary Tenderness Ear: Neither TM Bulge, Neither TM Erythema, Neither EAC Pain, Neither EAC Discharge Neck: Yes Supple, No Adenopathy Lungs: Yes Good Air Exchange, Yes Wheezes, No Ronchi, No Stridor, No Cough, No Labored Respirations, No Retractions, No Use of Accessory Muscles, No Other Abnormal Lung Sounds Heart: Yes Regular, No Murmur Abdomen: Yes Normal Bowel Sounds, No Tenderness, No Peritoneal Signs Skin: No Rash, No Edema Neurologic: Alert and oriented, no deficits. Musculoskeletal: Unremarkable. ED Course Vital Signs 10/16/19 14:06 Temperature 98 F Pulse Rate 113 H Respiratory 18 Rate Blood Pressure 125/84 O2 Sat by Pulse 100 Oximetry ED Medical Decision Making - Radiology Data Radiology results: report reviewed, image reviewed - Medical Decision Making neg xray HR 90 on exam dc home with dc poc including pcp follow up she verbalizes understanding Vital Signs 10/16/19 14:06 Temperature 98 F Pulse Rate 113 H Respiratory 18 Rate Blood Pressure 125/84 O2 Sat by Pulse 100 Oximetry - Differential Diagnosis ro pna Critical care attestation.: If time is entered above; I have spent that time in minutes in the direct care of this critically ill patient, excluding procedure time. ED Disposition Clinical Impression: Asthma with acute exacerbation Disposition: DC-01 TO HOME OR SELFCARE Is pt being admited?: No Does the pt Need Aspirin: No Condition: Stable Instructions: Asthma (ED) Additional Instructions: meds as ordered follow up with pcp referral below Prescriptions: predniSONE [Deltasone] 20 mg PO DAILY #5 tablet Benzonatate [Tessalon Perles] 100 mg PO Q12H PRN #20 capsule PRN Reason: Cough Cetirizine HCl [ZyrTEC] 10 mg PO DAILY #30 capsule Referrals: MIHAI LOCKETT III, MD [Staff Physician] - 3-5 Days Time of Disposition: 14:53
== END 2019-10-16 14:58 | disposition home or self-care (01) ==
LOC: ED 14:04
DX: J45.901 Unspecified asthma with (acute) exacerbation (principal); Z21 Asymptomatic human immunodeficiency virus [HIV] infection status; F17.200 Nicotine dependence, unspecified, uncomplicated; Z79.899 Other long term (current) drug therapy; Z79.1 Long term (current) use of non-steroidal anti-inflammatories (NSAID); Z88.1 Allergy status to other antibiotic agents
CPT/HCPCS: 71046; 99283

== ENCOUNTER 2021-01-18 02:09 | Observation (INO) | payer MEDICARE ==
[2021-01-18] MEDS ORDERED: ALBUTEROL 2.5 MG/3 ML NEBU IH ONE (02:55)
[2021-01-18] MEDS ORDERED: IPRATROPIUM 0.02% NEBU 2.5 ML IH ONE (02:56)
--- NOTE | 2021-01-18 03:08 | Emergency Department Report ---
HPI - General Chief Complaint: Adult Asthma Time Seen by Provider: 01/18/21 02:54 - HPI HPI: This is a 35-year-old -Burm[place] female presents to the emergency department via EMS from home with complaint of a 2-day history of shortness of breath and some coughing. The patient just got out of [facility] after she was there for some type of trauma evaluation after falling down some stairs. Patient has a past medical history of asthma and HIV. She is a tobacco smoker but denies any illicit drug use. Patient says that she tried some home inhaler and nebulizer medications without any relief. She denies any fever. She denies being vaccinated against COVID-19. ED Past Medical Hx - Past Medical History Hx Congestive Heart Failure: No Hx Diabetes: No Hx Asthma: Yes Hx COPD: No Hx HIV: Yes (since 2012) - Surgical History Additional Surgical History: polp removal - Social History Smoking Status: Current Every Day Smoker Substance Use Type: None - Medications Home Medications: Home Medications Medication Instructions Recorded Confirmed Last Taken Type RX: Sulfamethoxazole/Trimethoprim 2 each PO Q8HR 18 Days tablet 12/01/17 Unknown Rx [Bactrim DS TAB] Triumeq Tablet 600 mg PO QHS #30 12/01/17 Unknown Rx RX: Ibuprofen [Motrin 600 MG tab] 600 mg PO Q8H PRN #30 tablet 12/27/17 Unknown Rx Naproxen [Naprosyn] 500 mg PO TID #12 tablet 03/27/18 Unknown Rx RX: Baclofen [Lioresal] 10 mg PO TID PRN #9 tab 03/27/18 Unknown Rx Acyclovir [Acyclovir Ointment] 1 applicatio TP 5XD 7 Days #1 tube 05/02/18 Unknown Rx RX: Acyclovir [Zovirax] 400 mg PO TID 10 Days #30 tablet 05/02/18 Unknown Rx Benzonatate [Tessalon Perles] 100 mg PO Q12H PRN #20 capsule 10/16/19 Unknown Rx Cetirizine HCl [ZyrTEC] 10 mg PO DAILY #30 capsule 10/16/19 Unknown Rx RX: Azithromycin [Zithromax TAB] 1,200 mg PO Mo #10 tablet 10/16/19 Unknown Rx RX: Azithromycin [Zithromax Z-TESSA] 250 mg PO DAILY #6 tablet 10/16/19 Unknown Rx RX: predniSONE [Deltasone] 20 mg PO DAILY #5 tablet 10/16/19 Unknown Rx ED Review of Systems ROS: Stated complaint: SOB Other details as noted in HPI Comment: All other systems reviewed and negative Constitutional: denies: chills, fever Eyes: denies: eye pain, vision change ENT: denies: ear pain, throat pain Respiratory: cough, shortness of breath, wheezing Cardiovascular: denies: chest pain, edema Gastrointestinal: denies: abdominal pain, vomiting Genitourinary: denies: dysuria, discharge Musculoskeletal: denies: back pain, arthralgia Skin: denies: rash, lesions Neurological: denies: headache, weakness Physical Exam - Physical Exam Vital Signs: Vital Signs 01/18/21 02:11 Temperature 98.4 F Pulse Rate 64 Respiratory 18 Rate Blood Pressure 109/56 O2 Sat by Pulse 100 Oximetry Physical Exam: GENERAL: The patient is well-developed well-nourished. HENT: Normocephalic. Atraumatic. Patient has moist mucous membranes. EYES: Extraocular motions are intact. Pupils equal reactive to light bilaterally. NECK: Supple. Trachea is midline. CHEST/LUNGS: Clear to auscultation. No tachypnea or accessory muscle use. There is no respiratory distress noted. HEART/CARDIOVASCULAR: Regular. There is no tachycardia. There is no murmur. ABDOMEN: Abdomen is soft, nontender. Patient has normal bowel sounds. SKIN: Skin is warm and dry. NEURO: The patient is very sleepy but is easily arousable. Once awake she is cooperative but goes back to sleep if not continuously stimulated. Cranial nerves II through XII grossly intact. No slurred speech. MUSCULOSKELETAL: There is no tenderness or deformity. There is no limitation range of motion. ED Course Vital Signs 01/18/21 02:11 Temperature 98.4 F Pulse Rate 64 Respiratory 18 Rate Blood Pressure 109/56 O2 Sat by Pulse 100 Oximetry ED Medical Decision Making - Lab Data Result diagrams: 01/18/21 03:02 01/18/21 03:02 Lab Results 01/18/21 01/18/21 01/18/21 Range/Units 03:02 03:02 03:02 WBC 3.3 L (4.5-11.0) K/mm3 RBC 3.29 L (3.65-5.03) M/mm3 Hgb 8.9 L (10.1-14.3) gm/dl Hct 27.3 L (30.3-42.9) % MCV 83 (79-97) fl MCH 27 L (28-32) pg MCHC 33 (30-34) % RDW 19.9 H (13.2-15.2) % Plt Count 285 (140-440) K/mm3 PT (12.2-14.9) Sec. INR (0.87-1.13) Sodium 139 (137-145) mmol/L Potassium 2.1 L* (3.6-5.0) mmol/L Chloride 102.8 (98-107) mmol/L Carbon Dioxide 15 L (22-30) mmol/L Anion Gap 23 mmol/L BUN 13 (7-17) mg/dL Creatinine 0.6 (0.6-1.2) mg/dL Estimated GFR > 60 ml/min BUN/Creatinine Ratio 22 % Glucose 84 (65-100) mg/dL Calcium 8.6 (8.4-10.2) mg/dL Magnesium (1.7-2.3) mg/dL Total Bilirubin < 0.20 (0.1-1.2) mg/dL AST 94 H (5-40) units/L ALT 22 (7-56) units/L Alkaline Phosphatase 140 H (35-129) units/L Total Protein 7.8 (6.3-8.2) g/dL Albumin 3.4 L (3.9-5) g/dL Albumin/Globulin Ratio 0.8 % HCG, Qual Negative (Negative) Plasma/Serum Alcohol (0-0.07) % 01/18/21 01/18/21 01/18/21 Range/Units 03:02 03:21 03:21 WBC (4.5-11.0) K/mm3 RBC (3.65-5.03) M/mm3 Hgb (10.1-14.3) gm/dl Hct (30.3-42.9) % MCV (79-97) fl MCH (28-32) pg MCHC (30-34) % RDW (13.2-15.2) % Plt Count (140-440) K/mm3 PT 14.0 (12.2-14.9) Sec. INR 1.03 (0.87-1.13) Sodium (137-145) mmol/L Potassium (3.6-5.0) mmol/L Chloride (98-107) mmol/L Carbon Dioxide (22-30) mmol/L Anion Gap mmol/L BUN (7-17) mg/dL Creatinine (0.6-1.2) mg/dL Estimated GFR ml/min BUN/Creatinine Ratio % Glucose (65-100) mg/dL Calcium (8.4-10.2) mg/dL Magnesium 1.90 (1.7-2.3) mg/dL Total Bilirubin (0.1-1.2) mg/dL AST (5-40) units/L ALT (7-56) units/L Alkaline Phosphatase (35-129) units/L Total Protein (6.3-8.2) g/dL Albumin (3.9-5) g/dL Albumin/Globulin Ratio % HCG, Qual (Negative) Plasma/Serum Alcohol 0.10 H (0-0.07) % - Radiology Data Radiology results: image reviewed interpreted by me: Chest x-ray does not show any acute process. There are no pleural effusions, obvious pneumonia and there is no pneumothorax. No widened mediastinum. - Medical Decision Making This patient presents to the emergency department with a complaint of a 2-day history of shortness of breath. The patient appears fatigued with some generalized weakness. Heart and lung sounds are normal to auscultation and the patient does not appear in any respiratory distress. Chest x-ray does not show any pneumonia, pleural effusions, pneumothorax, widened mediastinum, or any other acute process. Labs are remarkable for some anemia with a hemoglobin of 8.9, and severe hypokalemia with potassium of 2.1, elevated AST level, and a blood alcohol level of 0.10. Patient has been given some oral and IV potassium replacement but wi ll require admission. She was accepted for admission by the hospitalist, Dr. Cortez. Critical Care Time: No Critical care attestation.: If time is entered above; I have spent that time in minutes in the direct care of this critically ill patient, excluding procedure time. ED Disposition Clinical Impression: Hypokalemia, History of HIV or AIDS, Alcohol intoxication, Anemia, Generalized weakness Disposition: ADMITTED INPATIENT Is pt being admited?: Yes Condition: Serious Time of Disposition: 05:56
[2021-01-18 03:58] LABS: Hematocrit 27.3 % (30.3-42.9); Hemoglobin 8.9 gm/dl (10.1-14.3); Mean Corpuscular HGB Conc 33 % (30-34); Mean Corpuscular Volume 83 fl (79-97); Platelet Count 285 K/mm3 (140-440); Red Blood Count 3.29 M/mm3 (3.65-5.03); Red Cell Distribution Width 19.9 % (13.2-15.2)
[2021-01-18 04:05] LABS: INR 1.03 (0.87-1.13)
[2021-01-18 04:09] LABS: Alanine Aminotransferase 22 units/L (7-56); Albumin 3.4 g/dL (3.9-5); Blood Urea Nitrogen 13 mg/dL (7-17); Calcium 8.6 mg/dL (8.4-10.2); Hemolysis Index 5
[2021-01-18 04:10] LABS: BUN/Creatinine Ratio 22
[2021-01-18] MEDS ORDERED: POTASSIUM CHLORIDE ER 20 MEQ TAB PO ONE ×2 (04:13→12:08)
[2021-01-18] MEDS ORDERED: SODIUM CHLORIDE 0.9% 500 ML 500 ML ONE (05:00)
[2021-01-18] MEDS: POTASSIUM CHLORIDE 10 MEQ 10 MEQ/100 ML BAG IV SCH ×2 (05:11→08:07)
[2021-01-18] MEDS ORDERED: ACETAMINOPHEN 325 MG TAB PO PRN (05:14)
[2021-01-18] MEDS ORDERED: MORPHINE 4 MG/1 ML INJ IV PRN (05:14)
[2021-01-18] MEDS ORDERED: MORPHINE 2 MG/1 ML INJ IV PRN (05:14)
[2021-01-18] MEDS ORDERED: MAGNESIUM HYDROXIDE (MOM) ORAL LIQD UDC PO PRN (05:14)
[2021-01-18] MEDS ORDERED: ONDANSETRON 4 MG/2 ML INJ IV PRN (05:14)
--- NOTE | 2021-01-18 05:14 | XRay Report ---
CHEST 1 VIEW INDICATION / CLINICAL INFORMATION: SOB. Dyspnea FINDINGS: SUPPORT DEVICES: None. HEART / MEDIASTINUM: No significant abnormality. LUNGS / PLEURA: No significant pulmonary or pleural abnormality. No pneumothorax. ADDITIONAL FINDINGS: No significant additional findings. IMPRESSION: 1. No acute findings. Signer Name: Yousif Waldron MD Signed: 01/18/2021 5:09 AM Workstation Name: [id number]
[2021-01-18] MEDS ORDERED: SODIUM CHLORIDE 0.9% 1000 ML 1,000 ML IV SCH (05:15)
--- NOTE | 2021-01-18 05:27 | History and Physical Report ---
History of Present Illness Date of examination: 01/18/21 Date of admission: 01/18/2021 Chief complaint: Shortness of Breath History of present illness: 35-year-old -[place]ib[place] female with known history of asthma, HIV/AIDS with a recent CD4 count of about 41 presents to the emergency room today complaining of generalized weakness, cough and shortness of breath. Symptoms has been ongoing for the past 2 days. Cough has not been productive. Patient indicates that she was just discharged from [facility] few days ago after falling down some stairs. She denies any fever or chills and denies any chest pain. No nausea or vomiting and no abdominal pain. Denies any hematuria or dysuria. Upon arrival in the emergency room today, she was mildly tachycardic. Work-up , significant findings were hemoglobin of 8.9 and hematocrit of 27.3. Potassium of 2.1 Other work-up were unremarkable. Past History Past Medical History: HIV/AIDS (Diagnosed with HIV in 2012), other (Asthma) Past Surgical History: Other (Polyp removal) Social history: smoking (Current daily smoker) Family history: no significant family history Medications and Allergies Allergies Allergy/AdvReac Type Severity Reaction Status Date / Time amoxicillin Allergy Rash Verified 01/18/21 05:41 Home Medications Medication Instructions Recorded Confirmed Last Taken Type Sulfamethoxazole/Trimethoprim 2 each PO Q8HR 18 Days tablet 12/01/17 Unknown Rx [Bactrim DS TAB] Triumeq Tablet 600 mg PO QHS #30 12/01/17 Unknown Rx Ibuprofen [Motrin 600 MG tab] 600 mg PO Q8H PRN #30 tablet 12/27/17 Unknown Rx Baclofen [Lioresal] 10 mg PO TID PRN #9 tab 03/27/18 Unknown Rx Naproxen [Naprosyn] 500 mg PO TID #12 tablet 03/27/18 Unknown Rx Acyclovir [Acyclovir Ointment] 1 applicatio TP 5XD 7 Days #1 tube 05/02/18 Unknown Rx Acyclovir [Zovirax] 400 mg PO TID 10 Days #30 tablet 05/02/18 Unknown Rx Azithromycin [Zithromax TAB] 1,200 mg PO Mo #10 tablet 10/16/19 Unknown Rx Azithromycin [Zithromax Z-TESSA] 250 mg PO DAILY #6 tablet 06/30/20 Unknown Rx Benzonatate [Tessalon Perles] 100 mg PO Q12H PRN #20 capsule 10/16/19 Unknown Rx Cetirizine HCl [ZyrTEC] 10 mg PO DAILY #30 capsule 10/16/19 Unknown Rx predniSONE [Deltasone] 20 mg PO DAILY #5 tablet 10/16/19 Unknown Rx Active Meds: Active Medications Acetaminophen (Acetaminophen 325 Mg Tab) 650 mg PO Q4H PRN PRN Reason: Pain MILD(1-3)/Fever >100.5/SNYDER Potassium Chloride (Kcl 10meq/100ml) 10 meq in 100 mls @ 100 mls/hr IV Q1H RENETTA Stop: 01/18/21 06:59 Sodium Chloride (Nacl 0.9% 1000 Ml) 1,000 mls @ 75 mls/hr IV DIRECT RENETTA Magnesium Hydroxide (Magnesium Hydroxide (Mom) Oral Liqd Udc) 30 ml PO Q4H PRN PRN Reason: Constipation Morphine Sulfate (Morphine 2 Mg/1 Ml Inj) 2 mg IV Q4H PRN PRN Reason: Pain, Moderate (4-6) Morphine Sulfate (Morphine 4 Mg/1 Ml Inj) 4 mg IV Q4H PRN PRN Reason: Pain , Severe (7-10) Ondansetron HCl (Ondansetron 4 Mg/2 Ml Inj) 4 mg IV Q8H PRN PRN Reason: Nausea And Vomiting Sodium Chloride (Sodium Chloride 0.9% 10 Ml Flush Syringe) 10 ml IV BID RENETTA Sodium Chloride (Sodium Chloride 0.9% 10 Ml Flush Syringe) 10 ml IV PRN PRN PRN Reason: LINE FLUSH Review of Systems Constitutional: no fever, no chills Ears, nose, mouth and throat: no nasal congestion, no sore throat Cardiovascular: no chest pain, no palpitations Respiratory: cough, no shortness of breath Gastrointestinal: no abdominal pain, no nausea, no vomiting, no diarrhea Genitourinary Female: no pelvic pain, no flank pain, no dysuria, no hematuria Musculoskeletal: no neck pain, no low back pain Integumentary: no rash, no pruritis Neurological: no headaches, no confusion Psychiatric: no anxiety, no depression Endocrine: no polyphagia, no polydipsia, no polyuria, no nocturia Exam - Constitutional Vitals: Temp Pulse Resp BP Pulse Ox 98.4 F 103 H 20 116/74 100 10/03/21 02:11 01/18/21 03:43 01/18/21 03:43 01/18/21 04:15 01/18/21 04:15 General appearance: Present: no acute distress, well-nourished - EENT Eyes: Present: PERRL, EOM intact. Absent: scleral icterus ENT: hearing intact, clear oral mucosa, dentition normal - Neck Neck: Present: supple, normal ROM - Respiratory Respiratory effort: normal Respiratory: bilateral: CTA - Cardiovascular Rhythm: regular Heart Sounds: Present: S1 & S2. Absent: gallop, systolic murmur, diastolic murmur, rub, click - Extremities Extremities: no ischemia, pulses intact, pulses symmetrical, No edema, normal temperature, Full ROM Extremity abnormal: edema Peripheral Pulses: within normal limits - Abdominal General gastrointestinal: Present: soft, non-tender, non-distended, normal bowel sounds. Absent: mass - Integumentary Integumentary: Present: clear, warm, dry. Absent: rash - Musculoskeletal Musculoskeletal: strength equal bilaterally - Psychiatric Psychiatric: appropriate mood/affect, intact judgment & insight, memory intact, cooperative - Neurologic Neurologic: CNII-XII intact, no focal deficits, moves all extremities Results - Labs CBC & Chem 7: 01/18/21 03:02 01/18/21 03:02 Labs: Abnormal lab results 01/18/21 01/18/21 01/18/21 Range/Units 03:02 03:02 03:21 WBC 3.3 L (4.5-11.0) K/mm3 RBC 3.29 L (3.65-5.03) M/mm3 Hgb 8.9 L (10.1-14.3) gm/dl Hct 27.3 L (30.3-42.9) % MCH 27 L (28-32) pg RDW 19.9 H (13.2-15.2) % Potassium 2.1 L* (3.6-5.0) mmol/L Carbon Dioxide 15 L (22-30) mmol/L AST 94 H (5-40) units/L Alkaline Phosphatase 140 H (35-129) units/L Albumin 3.4 L (3.9-5) g/dL Plasma/Serum Alcohol 0.10 H (0-0.07) % Assessment and Plan - Patient Problems (1) Generalized weakness Current Visit: Yes Status: Acute Plan to address problem: Etiology unclear. Will monitor on telemetry. (2) Hypokalemia Current Visit: Yes Status: Acute Plan to address problem: Potassium will be repleted and will monitor chemistry. (3) History of HIV or AIDS Current Visit: Yes Status: Acute Plan to address problem: Patient was diagnosed with HIV in 2012. She indicates she has been compliant with her medications. Recent CD4 count was about 41. She cannot recall her viral load. (4) DVT prophylaxis Current Visit: No Status: Acute Plan to address problem: Patient placed on subcutaneous heparin. (5) Full code status Current Visit: Yes Status: Acute Plan to address problem: Patient is full code.
[2021-01-18 06:28] LABS: Total Cells Counted 100
[2021-01-18 06:29] LABS: Anisocytosis 1+; Platelet Estimate Consistent w Auto
[2021-01-18] MEDS ORDERED: BACLOFEN 10 MG TAB PO PRN (10:09)
--- NOTE | 2021-01-18 10:11 | Event Note ---
Date: 01/18/21 Replace potassium and magnesium, PT OT evaluation, request records from [facility]. Obtain detailed medication history her home meds can be restarted.
[2021-01-18] MEDS ORDERED: MAGNESIUM SULFATE 1 GM in SODIUM CHLORIDE 0.9% 50 ML IV ONE (12:08)
[2021-01-18] MEDS ORDERED: ACYCLOVIR TP SCH (14:00)
[2021-01-18] MEDS ORDERED: ACYCLOVIR 400 MG PO SCH (14:00)
[2021-01-18] MEDS: ACYCLOVIR 200 MG CAP PO SCH ×3 (14:39→21:14)
[2021-01-18] MEDS ORDERED: TRIUMEQ PO SCH (22:00)
[2021-01-19 06:07] LABS: Hematocrit 25.2 % (30.3-42.9); Hemoglobin 8.4 gm/dl (10.1-14.3); Mean Corpuscular HGB Conc 33 % (30-34); Mean Corpuscular Volume 84 fl (79-97); Platelet Count 250 K/mm3 (140-440); Red Blood Count 3.01 M/mm3 (3.65-5.03)
[2021-01-19 06:11] LABS: Red Cell Distribution Width 21.3 % (13.2-15.2)
[2021-01-19 06:18] LABS: INR 0.94 (0.87-1.13)
[2021-01-19 06:27] LABS: Blood Urea Nitrogen 12 mg/dL (7-17); Calcium 8.3 mg/dL (8.4-10.2); Hemolysis Index 5
[2021-01-19 06:29] LABS: BUN/Creatinine Ratio 24
[2021-01-19 07:25] LABS: Anisocytosis 1+; Band Neutrophils # (Manual) 0.1 K/mm3; Total Cells Counted 100
[2021-01-19 07:28] LABS: Ovalocytes 1+; Platelet Estimate Consistent w Auto; Tear Drop Cells 1+
[2021-01-19 09:28] VITALS: BP 114/80
[2021-01-19] MEDS ORDERED: AZITHROMYCIN 600 MG TAB PO SCH (10:00)
[2021-01-19] MEDS ORDERED: DOLUTEGRAVIR 50 MG, ABACAVIR 600 MG, lamiVUDine 300 MG PO SCH (10:00)
[2021-01-19] MEDS ORDERED: DOLUTEGRAVIR 50 MG TAB PO SCH ×2 (10:00)
[2021-01-19] MEDS ORDERED: ABACAVIR 300 MG TAB PO SCH (10:00)
--- NOTE | 2021-01-19 10:48 | Discharge Summary ---
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 Symptoms has been ongoing for the past 2 days. Cough has not been productive. Patient indicates that she was just discharged from [facility] few days ago after falling down some stairs. She denies any fever or chills and denies any chest pain. No nausea or vomiting and no abdominal pain. Denies any hematuria or dysuria. Upon arrival in the emergency room today, she was mildly tachycardic. Work-up , significant findings were hemoglobin of 8.9 and hematocrit of 27.3. Potassium of 2.1 Other work-up were unremarkable. On arrival work-up showed ETOH TOXICITY 0.1 ETOH LEVEL Patient this morning is doing well she did complain of chest pain EKG was done was normal. Potassium is corrected extensive counseling provided to the patient need to quit alcohol use. She is to follow-up with her primary care doctor. (1) EtOH abuse and intoxication (2) generalized weakness Current Visit: Yes Status: Acute Plan to address problem: Etiology unclear. Will monitor on telemetry. (3) History of HIV or AIDS Current Visit: Yes Status: Acute Plan to address problem: Patient was diagnosed with HIV in 2012. She indicates she has been compliant with her medications. Recent CD4 count was about 41. She cannot recall her viral load. (4) Hypokalemia Current Visit: Yes Status: Acute Plan to address problem: Potassium will be repleted and will monitor chemistry. Disposition: 01 HOME / SELF CARE / HOMELESS Final Discharge Diagnosis (Prints w/discharge instructions): SYNCOPE SECONDARY EtOH use disorder Time spent for discharge: 35 minutes Core Measure Documentation - Palliative Care Palliative Care/ Comfort Measures: Not Applicable - Core Measures Any of the following diagnoses?: none Exam - Physical Exam Narrative exam: VITAL SIGNS: Reviewed. GENERAL: The patient appears normally developed, Vital signs as documented. HEAD: No signs of head trauma. EYES: Pupils are equal. Extraocular motions intact. EARS: Hearing grossly intact. MOUTH: Oropharynx is normal. NECK: No adenopathy, no JVD. CHEST: Chest with clear breath sounds bilaterally. No wheezes, rales, or rhonchi. CARDIAC: Regular rate and rhythm. S1 and S2, without murmurs, gallops, or rubs. VASCULAR: No Edema. Peripheral pulses normal and equal in all extremities. ABDOMEN: Soft, non tender and non distended. No rebound or guarding, and no masses palpated. Bowel Sounds normal. MUSCULOSKELETAL: Good range of motion of all major joints. Extremities without clubbing, cyanosis or edema. NEUROLOGIC EXAM: Alert and oriented x 3 No focal sensory or strength deficits. Speech normal. Follows commands. PSYCHIATRIC: Mood normal. SKIN: detail exam as documented in skin assessment - Constitutional Vitals: Temp Pulse Resp BP Pulse Ox 98.2 F 86 18 114/80 100 01/19/21 08:30 01/19/21 08:30 01/19/21 08:30 01/19/21 08:30 01/19/21 08:30 Plan Activity: advance as tolerated, fall precautions Diet: low fat Special Instructions: record daily weights, record daily BP diary Plan of Treatment: Resume your current home medications Follow with cardiology to evaluate the syncope Follow up with: PRIMARY CAREMD [Primary Care Provider] - 7 Days ALOK SALCEDO MD [Referring] - 7 Days ELIZA ALMANZA MD [Staff Physician] - 7 Days Prescriptions: predniSONE [Deltasone] 20 mg PO DAILY #5 tablet Folic Acid [Folvite] 1 mg PO QDAY #30 tablet Multivitamin Tab [Multiple Vitamin TAB (Theragran)] 1 each PO QDAY #30 tablet Thiamine [Vitamin B-1] 100 mg PO QDAY #30 tablet
--- NOTE | 2021-01-20 11:18 | Electrocardiograph Report ---
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
--- NOTE | 2021-01-21 10:09 | Electrocardiograph Report ---
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
== END 2021-01-19 18:17 | disposition home or self-care (01) ==
LOC: ED 02:09 → 4A 05:14
PROVIDERS: ADMIT Internal Medicine Geriatric Medicine; ATTEND Internal Medicine
DX: R53.1 Weakness (principal); E87.6 Hypokalemia; F10.129 Alcohol abuse with intoxication, unspecified; D64.9 Anemia, unspecified; J45.909 Unspecified asthma, uncomplicated; F17.200 Nicotine dependence, unspecified, uncomplicated; Z79.899 Other long term (current) drug therapy; Z21 Asymptomatic human immunodeficiency virus [HIV] infection status
CPT/HCPCS: 36415; 71045; 80048; 80053; 83735; 84132; 84484; 84703; 85007; 85025; 85610; 93005; 94644; 96361; 96365; 96366; 96367; 96375; 97162; 97165; 99285; G0378; J2270; J3475; J3480; J7030; J7040; 80320; G0480